=== PATIENT | female | born 1980 | race Caucasian/White ===

== ENCOUNTER 2016-05-13 15:28 | Emergency (ER) | payer OTHER ==
[~2016-05-13 15:28] MED LIST: DIPH25CA58 PO; METO25TA4 PO; ONDA8TAB9 PO; PROM25TA10 PO; SUMA20SP NS
[2016-05-13] MEDS ORDERED: methylPREDNISolone SOD SUCC PF 125 MG/2 ML VIAL. IV ONE (16:15)
[2016-05-13] MEDS ORDERED: IV NORMAL SALINE 1000ML BAG 1,000 ML IV ONE (16:15)
[2016-05-13] MEDS ORDERED: KETOROLAC TROMETHAMINE 30 MG/ML INJ. IV ONE (16:15)
[2016-05-13] MEDS ORDERED: PROCHLORPERAZINE 10 MG/2 ML VIAL. IV ONE (16:15)
[2016-05-13] MEDS ORDERED: DIPHENHYDRAMINE 50 MG/ML VIAL. IV ONE (16:15)
[2016-05-13 17:03] LABS: BILIRUBIN,URINE NEGATIVE (NEG); GLUCOSE,URINE NEGATIVE (NEG); NITRITE,URINE NEGATIVE (NEG); PROTEIN,URINE NEGATIVE (NEG-TRACE); UROBILINOGEN,URINE 0.2 mg/dL (0.2 mg/dL)
[2016-05-13 17:16] LABS: BACTERIA,URINE 0 /HPF (0-FEW); RBC,URINE 0 /HPF (0-2); SQUAMOUS EPITHELIAL CELL,UR FEW /LPF; WBC,URINE OCC /HPF (0-4)
[2016-05-13] MEDS: HYDROMORPHONE 2 MG/ML VIAL. IV/SQ PRN ×2 (17:37→18:03)
[2016-05-13 17:42] LABS: NEG OBC UR NEG; POS OBC UR POS
--- NOTE | 2016-05-13 18:07 | PHYS DOC ---
Past Medical History Past Medical History: Arthritis, Migraines, Other Additional Past Medical Histor: RA Past Surgical History: Cholecystectomy Alcohol Use: Rarely Drug Use: None Adult General Chief Complaint Chief Complaint: HEADACHE HPI HPI Patient is a 36 year old female who presents with migraine headache. The patient reports history of poorly controlled migraines. 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 She reports headache is generalized, aching/throbbing, similar to previous migraine. She reports photophobia/phonophobia, visual changes/aura, nausea She denies fevers , neck stiffness, vomiting, extremity numbness/weakness. She did not take home meds today because she was already at her workplace . Has seen numerous specialists but never achieved good control of her symptoms, reports most days of each month she suffers from a migraine. Review of Systems Review of Systems Constitutional: Denies fever or chills Eyes: Reports visual changes HENT: Denies nasal congestion or sore throat Respiratory: Denies cough or shortness of breath Cardiovascular: Denies chest pain or edema GI: Reports nausea. Denies abdominal pain, vomiting Musculoskeletal: Denies back pain or joint pain Integument: Denies rash or skin lesions Neurologic: Reports headache, denies focal weakness or sensory changes Current Medications Current Medications Current Medications Medications (Trade) Dose Ordered Sig/Faraz Start Time Stop Time Status Last Admin Dose Admin Diphenhydramine HCl (Benadryl) 25 mg 1X ONCE 05/13/16 16:15 05/13/16 16:16 DC 05/13/16 16:18 25 MG Hydromorphone HCl (Dilaudid) 1 mg PRN Q15MIN PRN 05/13/16 17:30 05/13/16 18:50 DC 05/13/16 18:03 1 MG Ketorolac Tromethamine (Toradol) 30 mg 1X ONCE 05/13/16 16:15 05/13/16 16:16 DC 05/13/16 16:19 30 MG Methylprednisolone Sodium Succinate (Solu-Medrol 125mg Vial) 125 mg 1X ONCE 05/13/16 16:15 05/13/16 16:16 DC 05/13/16 16:29 125 MG Prochlorperazine Edisylate (Compazine) 10 mg 1X ONCE 05/13/16 16:15 05/13/16 16:16 DC 05/13/16 16:18 10 MG Sodium Chloride (Iv Sodium Chloride 0.9% 1000ml Bag) 1,000 ml @ 1,000 mls/hr 1X ONCE 05/13/16 16:15 05/13/16 17:14 DC 05/13/16 16:18 1,000 MLS/HR Allergies Allergies Allergies Coded Allergies Type Severity Reaction Last Updated Verified benztropine Allergy Intermediate SEVERE PAIN 08/15/15 Yes dexamethasone Allergy Intermediate SEVERE PAIN 08/15/15 Yes Physical Exam Physical Exam Constitutional: Well developed, well nourished, lying supine in dark room with hands covering her face. HENT: Normocephalic, atraumatic, bilateral external ears normal, oropharynx moist, no tonsillar enlargement or exudate ,nose normal. Eyes: PERRLA, EOMI, conjunctiva normal, no discharge. Neck: supple, no stridor. no meningismus Cardiovascular: RRR, no murmurs, no edema. Lungs & Thorax: LCTAB, no wheezing, no respiratory distress. Abdomen: soft, nontender, nondistended. Skin: Warm, dry, no erythema, no rash. Back: No tenderness. Extremities: No tenderness, no edema. Neurologic: Alert and oriented X 3, CN2-12 grossly intact, symmetric strength/ sensation to UE & LE, no focal deficits noted. Psychologic: Affect normal, judgement normal, mood normal. Current Patient Data Vital Signs Vital Signs Date Time Temp Pulse Resp B/P Pulse Ox O2 Delivery O2 Flow Rate FiO2 05/13/16 18:19 76 16 153/75 95 Room Air 05/13/16 15:31 97.5 97.5 Lab Values Laboratory Tests Test 05/13/16 16:56 Urine Collection Type Unknown Urine Color Yellow Urine Clarity Clear Urine pH 8.0 Urine Specific [place] <=1.005 Urine Protein Negativemg/dL (NEG-TRACE) Urine Glucose (UA) Negativemg/dL (NEG) Urine Ketones (Stick) Negativemg/dL (NEG) Urine Blood Negative (NEG) Urine Nitrite Negative (NEG) Urine Bilirubin Negative (NEG) Urine Urobilinogen Dipstick 0.2mg/dL (0.2 mg/dL) Urine Leukocyte Esterase Negative (NEG) Urine RBC 0/HPF (0-2) Urine WBC Occ/HPF (0-4) Urine Squamous Epithelial Cells Few/LPF Urine Bacteria 0/HPF (0-FEW) Urine Test Negative (NEG) EKG EKG [] Radiology/Procedures Radiology/Procedures [] Course & Med Decision Making Course & Med Decision Making Pertinent Labs and Imaging studies reviewed. (See chart for details) Patient presents with usual migraine headache. Gave IV fluids, toradol, compazine, benadryl. She requested solumedrol as steroids have enhanced symptom relief in the past. No significant relief with initial treatment, also gave dilaudid. Her pain improved & she was comfortable with discharge home. Recommended rest, PO hydration, continue home meds, follow up with PCP or neurologist in 2-3 days if symptoms continue. Come back for focal neuro deficit , sudden onset or severe headache, mental status changes, any otherwise worsening condition. Discharged home in stable & improved condition. [] Dragon Disclaimer Dragon Disclaimer This electronic medical record was generated, in whole or in part, using a voice recognition dictation system. Departure Departure Impression: Primary Impression: Migraine Disposition: 01 HOME, SELF-CARE Condition: STABLE Referrals: MICKY YOST MD (PCP) Additional Instructions: You were seen in the emergency department today for migraine headache. Symptoms improved with treatment here. Please continue to rest, use home medications as prescribed. Follow-up with primary care physician or neurology within 2-3 days if not improving. Return to the emergency department for worst headache of your life, sudden onset of severe headache, severe confusion, difficulty walking or talking, trouble moving arms or legs, any otherwise worsening condition. ANETTE FRIEDMAN MD May 13, 2016 18:07
[2016-05-13 18:19] VITALS: BP 153/75
== END 2016-05-13 18:49 | disposition home or self-care (01) ==
LOC: ER 15:28
DX: G43.909 Migraine, unspecified, not intractable, without status migrainosus (principal); M06.9 Rheumatoid arthritis, unspecified; Z90.49 Acquired absence of other specified parts of digestive tract; Z88.8 Allergy status to other drugs, medicaments and biological substances
CPT/HCPCS: 81001; 81025; 96361; 96374; 96375; 99284; J0780; J1170; J1200; J1885; J2930; J7030

== ENCOUNTER 2016-10-07 10:26 | Emergency (ER) | payer OTHER ==
[~2016-10-07] VITALS: Ht 160 cm; Wt 81.6 kg
[2016-10-07] MEDS ORDERED: KETOROLAC TROMETHAMINE 30 MG/ML INJ. IV ONE (11:45)
[2016-10-07] MEDS ORDERED: diphenhydrAMINE 50 MG/ML VIAL IVP ONE (11:45)
[2016-10-07] MEDS ORDERED: PROCHLORPERAZINE 10 MG/2 ML VIAL. IV ONE (11:45)
[2016-10-07] MEDS ORDERED: ONDANSETRON PF 4 MG/2 ML VIAL. IV ONE (14:00)
[2016-10-07] MEDS ORDERED: fentaNYL PF VIAL 100 MCG/2 ML VIAL IV ONE (14:00)
[2016-10-07 14:24] VITALS: BP 141/68
--- NOTE | 2016-10-07 14:27 | PHYS DOC ---
Past Medical History Past Medical History: Arthritis, Migraines, Other Additional Past Medical Histor: RA Past Surgical History: Cholecystectomy Alcohol Use: Rarely Drug Use: None Adult General Chief Complaint Chief Complaint: HEADACHE HPI HPI Patient is a 36 year old female who presents with migraine headache. The patient reports headache since this morning which is frontal, throbbing, typical of usual migraine headache. Not sudden in onset, not the worst headache of her life. Associated with nausea, photophobia, phonophobia. Denies fevers/chills, neck stiffness, vomiting, extremity numbness/weakness. She used DHE without relief. Recently got an ear piercing that has provided some relief. She has a PCP. Review of Systems Review of Systems Constitutional: Denies fever or chills Eyes: Denies change in visual acuity HENT: Denies nasal congestion or sore throat Respiratory: Denies cough or shortness of breath Cardiovascular: Denies chest pain GI: Reports nausea. Denies abdominal pain, vomiting : Denies dysuria or hematuria Musculoskeletal: Denies back pain or joint pain Integument: Denies rash or skin lesions Neurologic: Reports headache, denies focal weakness or sensory changes Current Medications Current Medications Current Medications Medications (Trade) Dose Ordered Sig/Faraz Start Time Stop Time Status Last Admin Dose Admin Diphenhydramine HCl (Benadryl) 25 mg 1X ONCE 10/07/16 11:45 10/07/16 11:47 DC 10/07/16 12:25 25 MG Fentanyl Citrate (Fentanyl 2ml Vial) 50 mcg 1X ONCE 10/07/16 14:00 10/07/16 14:01 DC Ketorolac Tromethamine (Toradol) 30 mg 1X ONCE 10/07/16 11:45 10/07/16 11:47 DC 10/07/16 12:25 30 MG Ondansetron HCl (Zofran) 4 mg 1X ONCE 10/07/16 14:00 10/07/16 14:01 DC Prochlorperazine Edisylate (Compazine) 10 mg 1X ONCE 10/07/16 11:45 10/07/16 11:47 DC 10/07/16 12:25 10 MG Allergies Allergies Allergies Coded Allergies Type Severity Reaction Last Updated Verified benztropine Allergy Intermediate SEVERE PAIN 08/15/15 Yes dexamethasone Allergy Intermediate SEVERE PAIN 08/15/15 Yes Physical Exam Physical Exam Constitutional: Well developed, well nourished, no acute distress, non-toxic appearance. HENT: Normocephalic, atraumatic, bilateral external ears normal, oropharynx moist, nose normal. Eyes: PERRLA, EOMI, conjunctiva normal, no discharge. Neck: supple, no stridor. no meningismus. Cardiovascular: RRR, no murmurs, no edema. Lungs & Thorax: LCTAB, no wheezing, no respiratory distress. Abdomen: soft, nontender, nondistended. Skin: Warm, dry, no erythema, no rash. Back: No tenderness. Extremities: No tenderness, no edema. Neurologic: Alert and oriented X 3, CN2-12 grossly intact, symmetric strength/ sensation to upper & lower extremities. no focal deficits noted. Psychologic: Affect normal, judgement normal, mood normal. Current Patient Data Vital Signs Vital Signs Date Time Temp Pulse Resp B/P (MAP) Pulse Ox O2 Delivery O2 Flow Rate FiO2 10/07/16 14:24 88 18 141/68 (92) 94 Room Air 10/07/16 11:20 98.0 98.0 EKG EKG [] Radiology/Procedures Radiology/Procedures [] Course & Med Decision Making Course & Med Decision Making Pertinent Labs and Imaging studies reviewed. (See chart for details) The patient presents with usual migraine headache. Gave compazine, benadryl, toradol, fluids. Her symptoms improved. Ordered UA & UCG but she did not provide urine. She felt better & requested discharge home. Recommend rest, PO hydration, follow up with PCP in 2-3 days for ongoing migraine management. Come back for sudden onset severe headache, worst headache of her life, focal neuro deficit, any otherwise worsening condition. Discharged home in stable & improved condition. [] Dragon Disclaimer Dragon Disclaimer This electronic medical record was generated, in whole or in part, using a voice recognition dictation system. Departure Departure Impression: Primary Impression: Migraine headache Disposition: 01 HOME, SELF-CARE Condition: IMPROVED Referrals: MICKY YOST MD (PCP) Patient Instructions: Migraine Headache, [id number] Additional Instructions: You were seen in the emergency department today for migraine headache. Symptoms improved after treatment here. Please follow-up with primary care physician for ongoing management. Return to the emergency department for worst headache of your life, sudden onset severe headache, uncontrolled vomiting, difficulty moving arms or legs, any otherwise worsening condition. ANETTE FRIEDMAN MD Oct 07, 2016 14:27
== END 2016-10-07 15:00 | disposition home or self-care (01) ==
LOC: ER 10:26
DX: G43.909 Migraine, unspecified, not intractable, without status migrainosus (principal); M06.9 Rheumatoid arthritis, unspecified; Z88.8 Allergy status to other drugs, medicaments and biological substances; Z90.49 Acquired absence of other specified parts of digestive tract
CPT/HCPCS: 96374; 96375; 99284; J0780; J1200; J1885

== ENCOUNTER 2016-10-18 16:00 | Inpatient (IN) | payer OTHER ==
[~2016-10-18] VITALS: Ht 165.1 cm; Wt 85.3 kg
--- NOTE | 2016-10-18 17:24 | PHYS DOC ---
Past Medical History Past Medical History: Arthritis, Migraines, Other Additional Past Medical Histor: RA Past Surgical History: Cholecystectomy Alcohol Use: Rarely Drug Use: None Adult General Chief Complaint Chief Complaint: HEADACHE HPI HPI Patient is a 36 year old female who presents with migraine headache.She states it is a cluster headaches been going on for approximately 2 weeks total. She states occasionally over the last 2 weeks [id number] medicines controlled her headaches, other times she has to get a prescription strength medicine. She states is a throbbing sensation she feels nauseated with it, it's on the right side of her head behind her right eye in the right side of her jaw. She states she's tried DHE for yesterday and the day before in addition she tried Toradol yesterday.. She states that she's had a migraine history for years and occasional she needs Solu-Medrol and magnesium. She states she was just here a few weeks ago with similar situation. She states she' s tried Toradol at home eyes any fevers, neck stiffness. She does state sound and light makes her headache feel worse. Review of Systems Review of Systems Constitutional: Denies fever or chills [] Eyes: Denies change in visual acuity, redness, or eye pain [] HENT: Denies nasal congestion or sore throat [] Respiratory: Denies cough or shortness of breath [] Cardiovascular: No additional information not addressed in HPI [] GI: Denies abdominal pain, nausea, vomiting, bloody stools or diarrhea [] : Denies dysuria or hematuria [] Musculoskeletal: Denies back pain or joint pain [] Integument: Denies rash or skin lesions [] Neurologic: Positive for headache, Denies focal weakness or sensory changes [] Endocrine: Denies polyuria or polydipsia [] Current Medications Current Medications Current Medications Medications (Trade) Dose Ordered Sig/Faraz Start Time Stop Time Status Last Admin Dose Admin Diphenhydramine HCl (Benadryl) 25 mg 1X ONCE 10/18/16 20:00 10/18/16 20:01 DC 10/18/16 20:02 25 MG Hydromorphone HCl (Dilaudid) 1 mg PRN Q15MIN PRN 10/18/16 18:45 10/19/16 18:44 10/18/16 20:03 1 MG Ketorolac Tromethamine (Toradol) 30 mg 1X ONCE 10/18/16 18:45 10/18/16 18:47 DC 10/18/16 18:56 30 MG Lidocaine HCl (Xylocaine-Mpf 1% Vial) 5 ml 1X ONCE 10/18/16 19:45 10/18/16 19:46 DC 10/18/16 19:53 5 ML Magnesium Sulfate/ Dextrose 100 ml @ 100 mls/hr 1X ONCE 10/18/16 18:45 10/18/16 19:44 DC 10/18/16 18:57 100 MLS/HR Methylprednisolone Sodium Succinate (SOLU-Medrol 125MG VIAL) 125 mg 1X ONCE 10/18/16 17:30 10/18/16 17:31 DC 10/18/16 17:45 125 MG Promethazine HCl 12.5 mg/Sodium Chloride 50.5 ml @ 151.5 mls/ hr PRN Q6HRS PRN 10/18/16 17:30 10/18/16 17:50 151.5 MLS/HR Sodium Chloride 1,000 ml @ 1,000 mls/hr 1X ONCE 10/18/16 17:30 10/18/16 18:29 DC 10/18/16 17:49 1,000 MLS/HR Allergies Allergies Allergies Coded Allergies Type Severity Reaction Last Updated Verified benztropine Allergy Intermediate SEVERE PAIN 08/15/15 Yes dexamethasone Allergy Intermediate SEVERE PAIN 08/15/15 Yes Physical Exam Physical Exam Constitutional: Well developed, well nourished, no acute distress, non-toxic appearance. [] HENT: Normocephalic, atraumatic, bilateral external ears normal, oropharynx moist, no oral exudates, nose normal. [] Eyes: PERRLA, EOMI, conjunctiva normal, no discharge. [] Neck: Normal range of motion, no tenderness, supple, no stridor. [] Cardiovascular:Heart rate regular rhythm, no murmur [] Lungs & Thorax: Bilateral breath sounds clear to auscultation [] Abdomen: Bowel sounds normal, soft, no tenderness, no masses, no pulsatile masses. [] Skin: Warm, dry, no erythema, no rash. [] Back: No tenderness, no CVA tenderness. [] Extremities: No tenderness, no cyanosis, no clubbing, ROM intact, no edema. [] Neurologic: Alert and oriented X 3, normal motor function, normal sensory function, no focal deficits noted. [] Psychologic: Affect normal, judgement normal, mood normal. [] Current Patient Data Vital Signs Vital Signs Date Time Temp Pulse Resp B/P (MAP) Pulse Ox O2 Delivery O2 Flow Rate FiO2 10/18/16 20:03 18 99 Nasal Cannula 10/18/16 18:37 90 164/79 (107) 10/18/16 17:00 98.0 98.0 Lab Values Laboratory Tests Test 10/18/16 17:30 10/18/16 18:20 10/18/16 18:27 White Blood Count 6.7 x10^3/uL (4.0-11.0) Red Blood Count 4.51 x10^6/uL (3.50-5.40) Hemoglobin 13.3 g/dL (12.0-15.5) Hematocrit 38.8 % (36.0-47.0) Mean Corpuscular Volume 86 fL (79-100) Mean Corpuscular Hemoglobin 29 pg (25-35) Mean Corpuscular Hemoglobin Concent 34 g/dL (31-37) Red Cell Distribution Width 12.9 % (11.5-14.5) Platelet Count 243 x10^3/uL (140-400) Neutrophils (%) (Auto) 56 % (31-73) Lymphocytes (%) (Auto) 33 % (24-48) Monocytes (%) (Auto) 8 % (0-9) Eosinophils (%) (Auto) 3 % (0-3) Basophils (%) (Auto) 1 % (0-3) Neutrophils # (Auto) 3.7 x10^3uL (1.8-7.7) Lymphocytes # (Auto) 2.2 x10^3/uL (1.0-4.8) Monocytes # (Auto) 0.5 x10^3/uL (0.0-1.1) Eosinophils # (Auto) 0.2 x10^3/uL (0.0-0.7) Basophils # (Auto) 0.0 x10^3/uL (0.0-0.2) Urine Collection Type Unknown Urine Color Yellow Urine Clarity Clear Urine pH 7.5 Urine Specific [place] 1.010 Urine Protein Negative mg/dL (NEG-TRACE) Urine Glucose (UA) Negative mg/dL (NEG) Urine Ketones (Stick) 15 mg/dL (NEG) Urine Blood Negative (NEG) Urine Nitrite Negative (NEG) Urine Bilirubin Negative (NEG) Urine Urobilinogen Dipstick 0.2 mg/dL (0.2 mg/dL) Urine Leukocyte Esterase Small (NEG) Urine RBC 0 /HPF (0-2) Urine WBC 1-4 /HPF (0-4) Urine Squamous Epithelial Cells Mod /LPF Urine Bacteria Moderate /HPF (0-FEW) POC Urine HCG, Qualitative Hcg negative (Negative) Laboratory Tests 10/18/16 17:30 EKG EKG [] Radiology/Procedures Radiology/Procedures [] Impressions: Migraine headache Course & Med Decision Making Course & Med Decision Making Pertinent Labs and Imaging studies reviewed. (See chart for details) 1844 patient states the headache is no better with her treatment of Phenergan, Benadryl, Solu-Medrol. She states symptoms magnesium works. She did try Toradol but was earlier in the week. So we will start 1 g mag, 30 mg IV Toradol and 1 mg IV Dilaudid. We attempted 2% lidocaine and use a nebulizer and she states the pain went from a 10 down to an 8 but she still doesn't feel well enough to be discharged. We will admit and consult neurology. I also tried nonrebreather 15 L/m for 20 minutes to see if this would help. I spoke with Dr. Garcia wanted CT noncontrast of the brain performed now and MRI with and without contrast in the morning. These images have been ordered and are pending at this time. Patient's being admitted to the hospitalist who is going to follow-up on the CT scan. Dragon Disclaimer Dragon Disclaimer This electronic medical record was generated, in whole or in part, using a voice recognition dictation system. Departure Departure Impression: Primary Impression: Migraine Disposition: 09 ADMITTED INPATIENT Admitting Physician: Other Condition: STABLE Referrals: MICKY YOST MD (PCP) Problem Qualifiers Primary Impression: Migraine Migraine type: unspecified Status migrainosus presence: with status migrainosus Intractability: intractable Qualified Codes: G43.911 - Migraine , unspecified, intractable, with status migrainosus JESUS LOUIS MD Oct 18, 2016 17:24
[2016-10-18] MEDS ORDERED: PROMETHAZINE 12.5 MG in IV NORMAL SALINE 50ML 50 ML IV PRN (17:30)
[2016-10-18] MEDS ORDERED: methylPREDNISolone SOD SUCC PF 125 MG/2 ML VIAL. IV ONE (17:30)
[2016-10-18] MEDS ORDERED: diphenhydrAMINE 50 MG/ML VIAL IVP ONE ×2 (17:30→20:00)
[2016-10-18] MEDS ORDERED: IV NORMAL SALINE 1000ML BAG 1,000 ML IV ONE (17:30)
[2016-10-18 18:35] LABS: BILIRUBIN,URINE NEGATIVE (NEG); GLUCOSE,URINE NEGATIVE (NEG); NITRITE,URINE NEGATIVE (NEG); PH,URINE 7.5; PROTEIN,URINE NEGATIVE (NEG-TRACE); UROBILINOGEN,URINE 0.2 mg/dL (0.2 mg/dL)
[2016-10-18 18:39] LABS: BACTERIA,URINE MODERATE /HPF (0-FEW); RBC,URINE 0 /HPF (0-2); SQUAMOUS EPITHELIAL CELL,UR MOD /LPF
[2016-10-18] MEDS ORDERED: MAGNESIUM SULFATE 1GM 100 ML IV ONE (18:45)
[2016-10-18] MEDS ORDERED: KETOROLAC 30 MG/ML INJ. IV ONE (18:45)
[2016-10-18] MEDS: HYDROmorphone 2 MG/ML VIAL IV/SQ PRN ×2 (18:56→20:03)
[2016-10-18] MEDS ORDERED: LIDOCAINE 1% PF 5 ML VIAL. NEB ONE (19:45)
[2016-10-18] MEDS ORDERED: ONDANSETRON PF 4 MG/2 ML VIAL. IV PRN (21:00)
[2016-10-18 21:12] LABS: BASO % 1 % (0-3); EOS % 3 % (0-3); HEMATOCRIT 38.8 % (36.0-47.0); HEMOGLOBIN 13.3 g/dL (12.0-15.5); LYMPH # 2.2 x10^3/uL (1.0-4.8); LYMPH % 33 % (24-48); MEAN CORPUSCULAR HEMOGLOBIN 29 pg (25-35); MEAN CORPUSCULAR HGB CONC 34 g/dL (31-37); MEAN CORPUSCULAR VOLUME 86 fL (79-100); MONO % 8 % (0-9); NEUT % 56 % (31-73); PLATELET COUNT 243 x10^3/uL (140-400); RED BLOOD COUNT 4.51 x10^6/uL (3.50-5.40); RED CELL DISTRIBUTION WIDTH 12.9 % (11.5-14.5); WHITE BLOOD COUNT 6.7 x10^3/uL (4.0-11.0)
[2016-10-18] MEDS ORDERED: IV DEXTROSE 5 %-0.45 % NACL 1,000 ML IV ONE (21:15)
[2016-10-18 21:25] VITALS: BP 136/82
[2016-10-18 21:26] LABS: CALCIUM 9.2 mg/dL (8.5-10.1); CREATININE 0.7 mg/dL (0.6-1.0); GFR 94.2; POTASSIUM 3.3 mmol/L (3.5-5.1)
--- NOTE | 2016-10-18 21:35 | RAD ---
CT scan of the head without contrast 10/18/2016 Clinical History: Severe intractable headaches. Technique: Unenhanced, contiguous, 5 mm axial sections were obtained through the head. One or more of the following individualized dose reduction techniques were utilized for this study: 1. Automated exposure control. 2. Adjustment of the mA and/or kV according to patient size. 3. Use of iterative reconstruction technique. Findings: The ventricles and sulci are within normal limits in size and configuration. No focal area of abnormal attenuation is seen involving the brain parenchyma. No extra-axial fluid collection is seen. No skull fracture is seen. Impression: Negative study. Electronically signed by: Bradly Clancy MD (10/18/2016 9:32 PM) [facility]
[2016-10-18] MEDS ORDERED: NORE-83 PO (23:37)
[2016-10-18] MEDS ORDERED: NIFE30TA17 PO (23:37)
[2016-10-18] MEDS ORDERED: DRON5CAP PO (23:37)
[2016-10-18] MEDS ORDERED: CLON1TAB3 PO (23:37)
[2016-10-18] MEDS ORDERED: TIZA4TAB PO (23:37)
[2016-10-18] MEDS ORDERED: QUET300T5 PO (23:37)
[2016-10-18] MEDS ORDERED: HYDR-2758 PO (23:37)
[2016-10-18] MEDS ORDERED: DIHY1SPR NS (23:44)
[2016-10-19] MEDS ORDERED: diphenhydrAMINE HCL 25 MG CAPSULE PO PRN (00:30)
[2016-10-19] MEDS ORDERED: ONDANSETRON ODT 4 MG TAB.RAPDIS. PO PRN (00:30)
[2016-10-19] MEDS ORDERED: DIHYDROERGOTAMINE MESYLATE NS PRN (00:30)
[2016-10-19] MEDS ORDERED: HYDROmorphone 2 MG/ML VIAL IV ONE (00:45)
[2016-10-19] MEDS: tiZANidine 4 MG TABLET. PO PRN (00:53)
--- NOTE | 2016-10-19 01:07 | HP ---
ADMIT DATE: 10/18/2016 CHIEF COMPLAINT: Intractable headache. HISTORY OF PRESENT ILLNESS: The patient is a 36-year-old woman with long-standing history of severe migraines. Her most recent bout started about 2 weeks ago. She actually presented to the Emergency Room, got admitted there and felt a litter better. However, the migraine was not completely broken and she limped along. This morning, she woke up and had extreme severe headache with pounding even before getting up, and therefore, decided to come to the Emergency Room. In the ER, she received consecutively a multiple medications which minimally affected her headache. She is now admitted for intractable headache. PAST MEDICAL HISTORY: Migraine headaches. FAMILY HISTORY: Both parents have history of migraines with aura. 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 No toxic habits. ALLERGIES: BENZTROPINE AND DEXAMETHASONE. MEDICATIONS: MAR reconciled with home medications. REVIEW OF SYSTEMS: Positive as per HPI. Denies any ongoing aura, is sensitive to sound and light. Rest of organ system review shows some nausea and dizziness, but no other symptoms in rest of organ system review. PHYSICAL EXAMINATION: VITAL SIGNS: From today show a blood pressure of 136/82, heart rate of 95 and respiratory rate at 18. She is afebrile. GENERAL: This is a well-nourished 36-year-old woman, alert and oriented, in moderate distress due to headache. HEENT: Shows no scleral icterus. NECK: Supple. LUNGS: Fairly clear bilaterally. HEART: Regular rate and rhythm. ABDOMEN: Positive bowel sounds. Soft, nontender. EXTREMITIES: Show no edema. SKIN: Warm, soft and dry. LABORATORY DATA: CBC with a WBC of 6.7, hemoglobin 13.3 and platelets of 243,000. Chemistries with a BUN and creatinine of 13 and 0.7 and potassium of 3.3. IMAGING: CT noncontrast of the head shows ventricles and sulci within normal limits in size and configuration. No focal area of abnormal attenuation is seen involving the brain parenchyma. ASSESSMENT AND PLAN: The patient is a 36-year-old woman with long-standing history of migraine headaches. She has not picked a neurologist to follow up with here since moving to the [facility]. This is her second migraine this year. I will get her admitted. Dr. Garcia from Neurology has been consulted. An MRA of the brain is pending. In the meantime, we will try and break her cycle with Dilaudid as this seemed to be the only medication that at least temporarily helped a little bit. I will try and keep her comfortable. IV fluids will be continued for the time being. I will change to half normal saline with potassium as her potassium in the ER was noted to be slightly low. We will follow up with labs in the morning. We will also continue all her home medications, which are extensive. SHARON ALEJANDRO MD DR: NINOSKA/nts JOB#: [id number] / [id number] KEILY
[2016-10-19] MEDS: POTASSIUM CHLORIDE 30 MEQ in IV 1/2 NORMAL SALINE 1,000 ML IV SCH ×2 (01:14→17:44)
--- NOTE | 2016-10-19 01:45 | ACF ---
Admission Forms Criteria HEADACHES Clinical Indications for Admission to Inpatient Care (Hydes/check or initial the applicable condition/criteria): Admission is indicated for 1 or more of the following(1)(2)(3)(4)(5): I. Unruptured but threatening aneurysm or vascular malformation II. Venous sinus thrombosis III. Increased intracranial pressure IV. Cerebral spinal fluid leak V Medication-overuse headachethat has failed all outpatient management options(6 )(7)(8) . Vasculitis (eg, giant cell (temporal) arteritis, central nervous system vasculitis) requiring intravenous corticosteroids, intravenous antithrombotic therapy, or inpatient monitoring (e.g., visual symptomsor findings, other ischemic manifestations)[A](9) VII. Severe (new) neurologic findings requiring inpatient care as indicated by 1 or more of the following(10)(11)(12) a) Papilledema b) Cerebral edema c) mass effect on CT scan d) Cerebral spinal fluid leak (13) e) Hydrocephalus(14)(15) f) Uncontrolled seizures(9)(16) [X] VIII Inpatient admission required rather than observational care (See Headaches: Observation Care as appropriate) because of 1 or more of the following(17): [X] a) Severe pain requiring acute inpatient management b) Altered mental status that is severe or persistent c) Vomiting that is severe or persistent d) Dehydration that is severe or persistent e) New-onset focal neurologic deficit that is severe or persistent (eg, does not resolve during observation care) (18) f) Hypertension requiring inpatient treatment g) IV fluid required rather than oral rehydration to replace significant ongoing (eg, for greater than 24 hours) losses (greater than 200 ml/hr or 3L/m2 per day) h) Cerebral bleeding, hydrocephalus, or vasospasm monitoring (19) i) Increased intracranial pressure or cerebral edema monitoring j) Other condition treatment or monitoring requiring inpatient admission Extended stay beyond goal length of stay may be needed for (36)(37): a) Intractable migraine b) Giant cell (temporal) arteritis with visual or other ischemic signs or symptoms(1) c) Subarachnoid or intracranial hemorrhage d) Malignant hypertension e) Detoxification from drug withdrawal in medication-overuse headache (6)(8) The original [facility] content created by Berta Hurt has been revised. The portions of the content which have been revised are identified through the use of italic text or in bold, and [facility] has neither reviewed nor approved the modified material.All other unmodified content is copyright [facility]. Please see references footnoted in the original [facility] edition 2016 Admission Criteria Met?: Yes RAHUL WRAY Oct 19, 2016 01:45
[2016-10-19] MEDS: clonazePAM 1 MG TABLET PO PRN ×2 (02:25→09:18)
[2016-10-19] MEDS: HYDROcodone/APAP 5/325MG 1 TAB TABLET PO PRN ×2 (02:25→17:12)
[2016-10-19 03:00] VITALS: BP 140/79
[2016-10-19 07:00] VITALS: BP 100/53
[2016-10-19] MEDS ORDERED: NORETHINDRONE A E ESTRADIOL PO SCH (09:00)
[2016-10-19] MEDS ORDERED: DRONABINOL 2.5 MG CAPSULE. PO PRN (11:30)
--- NOTE | 2016-10-19 11:41 | RAD ---
Indication: Chronic migraine headaches. Technique: Study is dated October 19, 2016. 3-D time of flight MRA of the [place] was performed without contrast. Source and MIP reconstructed images were reviewed. Comparison CT head is from 1 day earlier. Findings: The visualized internal carotid arteries are normal in caliber without focal stenosis. The bilateral anterior and middle cerebral arteries are normal in caliber without focal stenosis or aneurysm. The vertebral, basilar, and posterior cerebral arteries are normal in caliber without focal stenosis or aneurysm. Impression: Normal intracranial MRA. Electronically signed by: Rehan Clements MD (10/19/2016 11:38 AM) [id number]
--- NOTE | 2016-10-19 12:47 | PDOC ---
PROGRESS NOTES Chief Complaint Chief Complaint Intractable headache PMH: migraine headaches History of Present Illness History of Present Illness Pt just returned from MRI, laying in bed with sleeping mask. States she hasn't slept all night. Angiography MRI of brain: IMPRESSION: Normal intracranial MRA. Head CT: IMPRESSION: Negative study. Vitals Vitals Vital Signs Date Time Temp Pulse Resp B/P (MAP) Pulse Ox O2 Delivery O2 Flow Rate FiO2 10/19/16 07:40 Room Air 10/19/16 07:00 98.4 74 18 100/53 (69) 90 98.4 10/18/16 21:00 15.0 Physical Exam General: Alert, Cooperative, No acute distress Heart: Regular rate, No murmurs Lungs: Clear, Other (no crackles, no wheezes) Abdomen: Soft, No tenderness Extremities: No clubbing, No cyanosis Skin: No rashes, No breakdown Labs LABS Laboratory Tests Test 10/18/16 17:30 10/18/16 18:20 10/18/16 18:27 White Blood Count 6.7 x10^3/uL (4.0-11.0) Red Blood Count 4.51 x10^6/uL (3.50-5.40) Hemoglobin 13.3 g/dL (12.0-15.5) Hematocrit 38.8 % (36.0-47.0) Mean Corpuscular Volume 86 fL (79-100) Mean Corpuscular Hemoglobin 29 pg (25-35) Mean Corpuscular Hemoglobin Concent 34 g/dL (31-37) Red Cell Distribution Width 12.9 % (11.5-14.5) Platelet Count 243 x10^3/uL (140-400) Neutrophils (%) (Auto) 56 % (31-73) Lymphocytes (%) (Auto) 33 % (24-48) Monocytes (%) (Auto) 8 % (0-9) Eosinophils (%) (Auto) 3 % (0-3) Basophils (%) (Auto) 1 % (0-3) Neutrophils # (Auto) 3.7 x10^3uL (1.8-7.7) Lymphocytes # (Auto) 2.2 x10^3/uL (1.0-4.8) Monocytes # (Auto) 0.5 x10^3/uL (0.0-1.1) Eosinophils # (Auto) 0.2 x10^3/uL (0.0-0.7) Basophils # (Auto) 0.0 x10^3/uL (0.0-0.2) Erythrocyte Sedimentation Rate 13 (0-25) Sodium Level 138 mmol/L (136-145) Potassium Level 3.3 mmol/L (3.5-5.1) Chloride Level 100 mmol/L (98-107) Carbon Dioxide Level 26 mmol/L (21-32) Anion Gap 12 (6-14) Blood Urea Nitrogen 13 mg/dL (7-20) Creatinine 0.7 mg/dL (0.6-1.0) Estimated GFR (Cockcroft-Gault) 94.2 Glucose Level 89 mg/dL (70-99) Calcium Level 9.2 mg/dL (8.5-10.1) Urine Collection Type Unknown Urine Color Yellow Urine Clarity Clear Urine pH 7.5 Urine Specific [place] 1.010 Urine Protein Negative mg/dL (NEG-TRACE) Urine Glucose (UA) Negative mg/dL (NEG) Urine Ketones (Stick) 15 mg/dL (NEG) Urine Blood Negative (NEG) Urine Nitrite Negative (NEG) Urine Bilirubin Negative (NEG) Urine Urobilinogen Dipstick 0.2 mg/dL (0.2 mg/dL) Urine Leukocyte Esterase Small (NEG) Urine RBC 0 /HPF (0-2) Urine WBC 1-4 /HPF (0-4) Urine Squamous Epithelial Cells Mod /LPF Urine Bacteria Moderate /HPF (0-FEW) Bedside Urine HCG, Qualitative Hcg negative (Negative) Review of Systems Review of Systems c/o fatigue headache Assessment and Plan Assessmemt and Plan Problems Medical Problems: (1) Migraine Status: Acute Migraine 1. Consulted Neurology 2. CT of head and MRA of brain both negative 3. Continue pain medicine; Percocet 5 mg PO q 8 hr prn #5 written, in chart 4. Probable DC today, if ok with neuro 5. F/up with PCP 1 week Problems: Comment Review of Relevant I have reviewed the following items sadaf (where applicable) has been applied. Labs Laboratory Tests Test 10/18/16 17:30 10/18/16 18:20 10/18/16 18:27 White Blood Count 6.7 x10^3/uL (4.0-11.0) Red Blood Count 4.51 x10^6/uL (3.50-5.40) Hemoglobin 13.3 g/dL (12.0-15.5) Hematocrit 38.8 % (36.0-47.0) Mean Corpuscular Volume 86 fL (79-100) Mean Corpuscular Hemoglobin 29 pg (25-35) Mean Corpuscular Hemoglobin Concent 34 g/dL (31-37) Red Cell Distribution Width 12.9 % (11.5-14.5) Platelet Count 243 x10^3/uL (140-400) Neutrophils (%) (Auto) 56 % (31-73) Lymphocytes (%) (Auto) 33 % (24-48) Monocytes (%) (Auto) 8 % (0-9) Eosinophils (%) (Auto) 3 % (0-3) Basophils (%) (Auto) 1 % (0-3) Neutrophils # (Auto) 3.7 x10^3uL (1.8-7.7) Lymphocytes # (Auto) 2.2 x10^3/uL (1.0-4.8) Monocytes # (Auto) 0.5 x10^3/uL (0.0-1.1) Eosinophils # (Auto) 0.2 x10^3/uL (0.0-0.7) Basophils # (Auto) 0.0 x10^3/uL (0.0-0.2) Erythrocyte Sedimentation Rate 13 (0-25) Sodium Level 138 mmol/L (136-145) Potassium Level 3.3 mmol/L (3.5-5.1) Chloride Level 100 mmol/L (98-107) Carbon Dioxide Level 26 mmol/L (21-32) Anion Gap 12 (6-14) Blood Urea Nitrogen 13 mg/dL (7-20) Creatinine 0.7 mg/dL (0.6-1.0) Estimated GFR (Cockcroft-Gault) 94.2 Glucose Level 89 mg/dL (70-99) Calcium Level 9.2 mg/dL (8.5-10.1) Urine Collection Type Unknown Urine Color Yellow Urine Clarity Clear Urine pH 7.5 Urine Specific [place] 1.010 Urine Protein Negative mg/dL (NEG-TRACE) Urine Glucose (UA) Negative mg/dL (NEG) Urine Ketones (Stick) 15 mg/dL (NEG) Urine Blood Negative (NEG) Urine Nitrite Negative (NEG) Urine Bilirubin Negative (NEG) Urine Urobilinogen Dipstick 0.2 mg/dL (0.2 mg/dL) Urine Leukocyte Esterase Small (NEG) Urine RBC 0 /HPF (0-2) Urine WBC 1-4 /HPF (0-4) Urine Squamous Epithelial Cells Mod /LPF Urine Bacteria Moderate /HPF (0-FEW) Bedside Urine HCG, Qualitative Hcg negative (Negative) Laboratory Tests Test 10/18/16 17:30 10/18/16 18:20 10/18/16 18:27 White Blood Count 6.7 x10^3/uL (4.0-11.0) Red Blood Count 4.51 x10^6/uL (3.50-5.40) Hemoglobin 13.3 g/dL (12.0-15.5) Hematocrit 38.8 % (36.0-47.0) Mean Corpuscular Volume 86 fL (79-100) Mean Corpuscular Hemoglobin 29 pg (25-35) Mean Corpuscular Hemoglobin Concent 34 g/dL (31-37) Red Cell Distribution Width 12.9 % (11.5-14.5) Platelet Count 243 x10^3/uL (140-400) Neutrophils (%) (Auto) 56 % (31-73) Lymphocytes (%) (Auto) 33 % (24-48) Monocytes (%) (Auto) 8 % (0-9) Eosinophils (%) (Auto) 3 % (0-3) Basophils (%) (Auto) 1 % (0-3) Neutrophils # (Auto) 3.7 x10^3uL (1.8-7.7) Lymphocytes # (Auto) 2.2 x10^3/uL (1.0-4.8) Monocytes # (Auto) 0.5 x10^3/uL (0.0-1.1) Eosinophils # (Auto) 0.2 x10^3/uL (0.0-0.7) Basophils # (Auto) 0.0 x10^3/uL (0.0-0.2) Erythrocyte Sedimentation Rate 13 (0-25) Sodium Level 138 mmol/L (136-145) Potassium Level 3.3 mmol/L (3.5-5.1) Chloride Level 100 mmol/L (98-107) Carbon Dioxide Level 26 mmol/L (21-32) Anion Gap 12 (6-14) Blood Urea Nitrogen 13 mg/dL (7-20) Creatinine 0.7 mg/dL (0.6-1.0) Estimated GFR (Cockcroft-Gault) 94.2 Glucose Level 89 mg/dL (70-99) Calcium Level 9.2 mg/dL (8.5-10.1) Urine Collection Type Unknown Urine Color Yellow Urine Clarity Clear Urine pH 7.5 Urine Specific [place] 1.010 Urine Protein Negative mg/dL (NEG-TRACE) Urine Glucose (UA) Negative mg/dL (NEG) Urine Ketones (Stick) 15 mg/dL (NEG) Urine Blood Negative (NEG) Urine Nitrite Negative (NEG) Urine Bilirubin Negative (NEG) Urine Urobilinogen Dipstick 0.2 mg/dL (0.2 mg/dL) Urine Leukocyte Esterase Small (NEG) Urine RBC 0 /HPF (0-2) Urine WBC 1-4 /HPF (0-4) Urine Squamous Epithelial Cells Mod /LPF Urine Bacteria Moderate /HPF (0-FEW) Bedside Urine HCG, Qualitative Hcg negative (Negative) Medications Current Medications Diphenhydramine HCl (Benadryl) 50 mg 1X ONCE IVP Last administered on 17:45; Start 10/18/16 at 17:30; Stop 10/18/16 at 17:31; Status DC Promethazine HCl 12.5 mg/Sodium Chloride 50.5 ml @ 151.5 mls/ hr PRN Q6HRS PRN IV NAUSEA/VOMITING Last administered on 10/18/16 17:50; Start 10/18/16 at 17:30 Methylprednisolone Sodium Succinate (SOLU-Medrol 125MG VIAL) 125 mg 1X ONCE IV Last administered on 10/18/16 17:45; Start 10/18/16 at 17:30; Stop 10/18/16 at 17:31; Status DC Sodium Chloride 1,000 ml @ 1,000 mls/hr 1X ONCE IV Last administered on 17:49; Start 10/18/16 at 17:30; Stop 10/18/16 at 18:29; Status DC Hydromorphone HCl (Dilaudid) 1 mg PRN Q15MIN PRN IV/SQ PAIN GREATER THAN 3/10 Last administered on 10/18/16 20:03; Start 10/18/16 at 18:45; Stop 10/19/16 at 00:23; Status DC Magnesium Sulfate/ Dextrose 100 ml @ 100 mls/hr 1X ONCE IV Last administered on 10/18/16 18:57; Start 10/18/16 at 18:45; Stop 10/18/16 at 19:44; Status DC Ketorolac Tromethamine (Toradol) 30 mg 1X ONCE IV Last administered on 18:56; Start 10/18/16 at 18:45; Stop 10/18/16 at 18:47; Status DC Lidocaine HCl (Xylocaine-Mpf 1% Vial) 5 ml 1X ONCE NEB Last administered on 19:53; Start 10/18/16 at 19:45; Stop 10/18/16 at 19:46; Status DC Diphenhydramine HCl (Benadryl) 25 mg 1X ONCE IVP Last administered on 20:02; Start 10/18/16 at 20:00; Stop 10/18/16 at 20:01; Status DC Ondansetron HCl (Zofran) 4 mg PRN Q8HRS PRN IV NAUSEA/VOMITING Last administered on 10/18/16 21:11; Start 10/18/16 at 21:00; Stop 10/19/16 at 20:59 Dextrose/Sodium Chloride 1,000 ml @ 125 mls/hr 1X ONCE IV Last administered on 10/18/16 21:15; Start 10/18/16 at 21:15; Stop 10/19/16 at 05:14; Status DC Hydromorphone HCl (Dilaudid) 3 mg 1X ONCE IV Last administered on 10/19/16 00 :49; Start 10/19/16 at 00:45; Stop 10/19/16 at 00:46; Status DC Clonazepam (KlonoPIN) 1 mg PRN TID PRN PO ANXIETY Last administered on 09:18; Start 10/19/16 at 00:30 Diphenhydramine HCl (Benadryl) 50 mg PRN Q6HRS PRN PO HEADACHE Last administered on 10/19/16 01:13; Start 10/19/16 at 00:30 Acetaminophen/ Hydrocodone Bitart (Lortab 5/325) 1 tab PRN Q4HRS PRN PO MODERATE PAIN Last administered on 10/19/16 02:25; Start 10/19/16 at 00:30 Nifedipine (Procardia Xl) 30 mg HS PO ; Start 10/19/16 at 21:00 Tizanidine HCl (Zanaflex) 4 mg PRN QID PRN PO MUSCLE SPASMS Last administered on 10/19/16 00:53; Start 10/19/16 at 00:30 Non-Formulary Medication 1 ml PRN BID PRN NS MIGRAINE HEADACHE; Start 10/19/16 at 00:30; Status UNV Dronabinol (Marinol) 5 mg PRN TID PRN PO NAUSEA Last administered on 10/19/16 09:18; Start 10/19/16 at 11:30 Non-Formulary Medication 1 tab DAILY PO ; Start 10/19/16 at 09:00; Status UNV Ondansetron HCl (Zofran Odt) 8 mg PRN Q8HRS PRN PO NAUSEA/VOMITING; Start 10/19 at 00:30 Quetiapine Fumarate (SEROquel XR) 300 mg QHS PO ; Start 10/19/16 at 21:00 Potassium Chloride 30 meq/ Sodium Chloride 1,015 ml @ 75 mls/hr [id number] IV Last administered on 10/19/16 01:14; Start 10/19/16 at 01:00 Active Scripts Active Reported Dihydroergotamine Mesylate 1 Ml [place].pump 1 Ml NS PRN BID PRN Hydrocodone-Apap 5-325 (Hydrocodone Bit/Acetaminophen) 1 Each Tablet 1 Tab PO PRN Q4HRS PRN Loestrin (Norethindrone A-E Estradiol) 1 Each Tablet 1 Tab PO DAILY Clonazepam 1 Mg Tablet 1 Mg PO PRN TID PRN Tizanidine Hcl 4 Mg Tablet 4 Mg PO QID PRN Seroquel (Quetiapine Fumarate) 300 Mg Tablet 300 Mg PO HS Marinol (Dronabinol) 5 Mg Capsule 5 Mg PO PRN TID PRN Nifedipine Er (Nifedipine) 30 Mg Tab.er.24 1 Tab PO HS Benadryl (Diphenhydramine Hcl) 25 Mg Capsule 2 Cap PO PRN Q6-8HRS PRN Zofran (Ondansetron Hcl) 8 Mg Tablet 8 Mg PO BID PRN Vitals/I & O Vital Sign - Last 24 Hours 10/18/16 10/18/16 10/18/16 10/18/16 17:00 17:37 18:07 18:37 Temp 98.0 98.0 Pulse 98 86 92 90 Resp 20 18 18 18 B/P (MAP) 195/105 (135) 149/74 (99) 158/88 (111) 164/79 (107) Pulse Ox 98 97 92 90 O2 Delivery Room Air Room Air Room Air Room Air 10/18/16 10/18/16 10/18/16 10/18/16 18:56 19:30 20:00 20:03 Pulse 100 100 Resp 20 18 18 18 B/P (MAP) 153/82 (105) 132/75 (94) Pulse Ox 98 99 99 O2 Delivery Room Air Nasal Cannula Nasal Cannula Nasal Cannula O2 Flow Rate 2.0 2.0 10/18/16 10/18/16 10/18/16 10/18/16 21:00 21:25 22:45 23:00 Temp 98.6 98.6 Pulse 91 95 Resp 18 18 B/P (MAP) 135/77 (96) 136/82 (100) Pulse Ox 99 92 O2 Delivery NonRebreather Mask Room Air Room Air O2 Flow Rate 15.0 10/19/16 10/19/16 10/19/16 10/19/16 00:49 01:29 02:25 03:00 Temp 97.7 97.7 Pulse 87 Resp 18 18 18 16 B/P (MAP) 140/79 (99) Pulse Ox 92 92 94 O2 Delivery Room Air Room Air 10/19/16 10/19/16 10/19/16 03:28 07:00 07:40 Temp 98.4 98.4 Pulse 74 Resp 18 18 B/P (MAP) 100/53 (69) Pulse Ox 94 90 O2 Delivery Room Air Room Air Room Air Intake and Output 10/19/16 10/19/16 10/20/16 15:00 23:00 07:00 Intake Total 540 ml Output Total 300 ml Balance 240 ml DAVIE FREY III DO Oct 19, 2016 12:47
[2016-10-19] MEDS ORDERED: GADOBUTROL 7.5 MMOL/7.5 ML VIAL IV ONE (14:00)
[2016-10-19 15:00] VITALS: BP 122/47
--- NOTE | 2016-10-19 15:02 | RAD ---
INDICATION: Headaches. Concern for pseudotumor cerebri or Chiari malformation. TECHNIQUE: Sagittal T1, axial T1, axial T2, axial FLAIR, axial T2 gradient, coronal postcontrast, axial postcontrast, and diffusion imaging with ADC map was performed. 7.5 mL of intravenous Gadavist was administered without complication. Comparison MR angiogram from earlier today was reviewed. There is also a CT from one day earlier. FINDINGS: The ventricles are normal in size and configuration. The ventricles do not appear prominent in relation to the sulci. There is no acute intracranial hemorrhage or extra-axial fluid collection. There is no mass effect or midline shift. There is no restricted diffusion to suggest an acute infarct. Sagittal midline structures are unremarkable. There is no cerebellar tonsillar ectopia. Pituitary and suprasellar region are unremarkable. Intracranial flow voids are preserved. There is minimal ethmoid and maxillary mucosal thickening. Orbital contents are unremarkable. There is no fluid in the optic sheaths. There is no pathologic enhancement. IMPRESSION: No acute intracranial findings. Electronically signed by: Rehan Clements MD (10/19/2016 2:58 PM) [id number]
--- NOTE | 2016-10-19 15:44 | PDOC2 ---
NEUROLOGY CONSULT Date of Admission Date of Admission DATE: 10/19/16 TIME: 15:38 Reason for Consult Reason for Consult: Intractable migraine headache. Chronic migraine headache. Pseudotumor cerebri ?. HTN OA Over weight. No evidence of Chiari malformation on MRI. RECOMMENDATIONS/PLAN: Pain control. Metoprolol 25 mg daily. Lab: see orders. LP to measure CSF opening pressure. Discussed with patient in all detail at bedside. HISTORY OF THE PRESENT ILLNESS: 36-y-old female patient with long standing history of chronic migraine headache since teenage age. She used to have frequent headaches about 15 days or more each month. Her headaches are at frontal head, around orbital area spreading to top, side and back of head as sharp pain. She rated her headaches 8-10/10. She was treated with multiple medications including Triptan, Topamax, Neurontin, Botox, DHE, etc, but stated not help. She has HTN and has been on a new calcium channel bc recently but seemed increased her headaches. No symptoms of mental status changes, projectile vomiting, blurred vision, diplopia, ataxia, aphasia, numbness or weakness. PAST MEDICAL HISTORY: Please see above. PAST SURGERY HISTORY: No major surgery recently. ALLERGY: Benztropine Dexamethason MEDICATIONS: Refer to [facility] FAMILY HISTORY: Mother has migraine headache. Father has aura w/o headache. SOCIAL HISTORY: Lives with her at home. Denies smoking, drinking, and illicit drug use. REVIEW OF SYSTEMS: Constitutional: No malnutrition, weight loss, cachexia. Head: No traumatic brain or head injury. Skin: No edema, or rash. Ear: No infection, tinnitus. Eyes: No vision loss or color blindness. Nose: No bleeding or purulent discharges. Hearing: No hearing decrease. Neck: No injury. Breast: No history of cancer, masses,or discharges. Cardiac:HTN. Pulmonary: No OPD. GI: No GI ulcer, GI bleeding. Urinary/genital: UTI. Endocrinologic: Over weight. Skeletomuscular: No muscular atrophy, deformity. Neurological: see HP. Psychiatric: Denies drug use/abuse. Otherwise, not [id number] review of systems. PHYSICAL EXAMINATION: General appearance is in acute distress. HEENT: Normocephalic and nontraumatic. Eyes, nose, ears, and throat are unremarkable. Neck is supple. No lymphadenopathy. No crepitus. Cardiovascular: S1, S2, regular rate and rhythm. Pulmonary: Clear to auscultation bilaterally. Abdomen: Bowel sounds are positive. Extremities: No rash, lesions, or edema. No restriction of range of motion NEUROLOGICAL EXAMINATION: Alert Oriented to time, place and person. Pupils equal round. Not be able to tolerate light stimuli. EOMI. CN: no focal findings. Muscle tone: within normal. Muscle strength: 5 DTR: 2 Plantar reflex: Flexor response bilaterally Gait: not examined in bed. Sensory exam: no abnormal findings. Current Medications Current Medications Current Medications Diphenhydramine HCl (Benadryl) 50 mg 1X ONCE IVP Last administered on 17:45; Start 10/18/16 at 17:30; Stop 10/18/16 at 17:31; Status DC Promethazine HCl 12.5 mg/Sodium Chloride 50.5 ml @ 151.5 mls/ hr PRN Q6HRS PRN IV NAUSEA/VOMITING Last administered on 10/18/16 17:50; Start 10/18/16 at 17:30 Methylprednisolone Sodium Succinate (SOLU-Medrol 125MG VIAL) 125 mg 1X ONCE IV Last administered on 10/18/16 17:45; Start 10/18/16 at 17:30; Stop 10/18/16 at 17:31; Status DC Sodium Chloride 1,000 ml @ 1,000 mls/hr 1X ONCE IV Last administered on 17:49; Start 10/18/16 at 17:30; Stop 10/18/16 at 18:29; Status DC Hydromorphone HCl (Dilaudid) 1 mg PRN Q15MIN PRN IV/SQ PAIN GREATER THAN 3/10 Last administered on 10/18/16 20:03; Start 10/18/16 at 18:45; Stop 10/19/16 at 00:23; Status DC Magnesium Sulfate/ Dextrose 100 ml @ 100 mls/hr 1X ONCE IV Last administered on 10/18/16 18:57; Start 10/18/16 at 18:45; Stop 10/18/16 at 19:44; Status DC Ketorolac Tromethamine (Toradol) 30 mg 1X ONCE IV Last administered on 18:56; Start 10/18/16 at 18:45; Stop 10/18/16 at 18:47; Status DC Lidocaine HCl (Xylocaine-Mpf 1% Vial) 5 ml 1X ONCE NEB Last administered on 19:53; Start 10/18/16 at 19:45; Stop 10/18/16 at 19:46; Status DC Diphenhydramine HCl (Benadryl) 25 mg 1X ONCE IVP Last administered on 20:02; Start 10/18/16 at 20:00; Stop 10/18/16 at 20:01; Status DC Ondansetron HCl (Zofran) 4 mg PRN Q8HRS PRN IV NAUSEA/VOMITING Last administered on 10/18/16 21:11; Start 10/18/16 at 21:00; Stop 10/19/16 at 20:59 Dextrose/Sodium Chloride 1,000 ml @ 125 mls/hr 1X ONCE IV Last administered on 10/18/16 21:15; Start 10/18/16 at 21:15; Stop 10/19/16 at 05:14; Status DC Hydromorphone HCl (Dilaudid) 3 mg 1X ONCE IV Last administered on 10/19/16 00 :49; Start 10/19/16 at 00:45; Stop 10/19/16 at 00:46; Status DC Clonazepam (KlonoPIN) 1 mg PRN TID PRN PO ANXIETY Last administered on 09:18; Start 10/19/16 at 00:30 Diphenhydramine HCl (Benadryl) 50 mg PRN Q6HRS PRN PO HEADACHE Last administered on 10/19/16 01:13; Start 10/19/16 at 00:30 Acetaminophen/ Hydrocodone Bitart (Lortab 5/325) 1 tab PRN Q4HRS PRN PO MODERATE PAIN Last administered on 10/19/16 02:25; Start 10/19/16 at 00:30 Nifedipine (Procardia Xl) 30 mg HS PO ; Start 10/19/16 at 21:00 Tizanidine HCl (Zanaflex) 4 mg PRN QID PRN PO MUSCLE SPASMS Last administered on 10/19/16 00:53; Start 10/19/16 at 00:30 Non-Formulary Medication 1 ml PRN BID PRN NS MIGRAINE HEADACHE; Start 10/19/16 at 00:30; Status UNV Dronabinol (Marinol) 5 mg PRN TID PRN PO NAUSEA Last administered on 10/19/16 09:18; Start 10/19/16 at 11:30 Non-Formulary Medication 1 tab DAILY PO ; Start 10/19/16 at 09:00; Stop at 12:50; Status DC Ondansetron HCl (Zofran Odt) 8 mg PRN Q8HRS PRN PO NAUSEA/VOMITING; Start 10/19 at 00:30 Quetiapine Fumarate (SEROquel XR) 300 mg QHS PO ; Start 10/19/16 at 21:00 Potassium Chloride 30 meq/ Sodium Chloride 1,015 ml @ 75 mls/hr [id number] IV Last administered on 10/19/16 01:14; Start 10/19/16 at 01:00 Gadobutrol (Gadavist) 7.5 mmol 1X ONCE IV Last administered on 10/19/16 14:20 ; Start 10/19/16 at 14:00; Stop 10/19/16 at 14:01; Status DC Active Scripts Active Reported Dihydroergotamine Mesylate 1 Ml [place].pump 1 Ml NS PRN BID PRN Hydrocodone-Apap 5-325 (Hydrocodone Bit/Acetaminophen) 1 Each Tablet 1 Tab PO PRN Q4HRS PRN Loestrin (Norethindrone A-E Estradiol) 1 Each Tablet 1 Tab PO DAILY Clonazepam 1 Mg Tablet 1 Mg PO PRN TID PRN Tizanidine Hcl 4 Mg Tablet 4 Mg PO QID PRN Seroquel (Quetiapine Fumarate) 300 Mg Tablet 300 Mg PO HS Marinol (Dronabinol) 5 Mg Capsule 5 Mg PO PRN TID PRN Nifedipine Er (Nifedipine) 30 Mg Tab.er.24 1 Tab PO HS Benadryl (Diphenhydramine Hcl) 25 Mg Capsule 2 Cap PO PRN Q6-8HRS PRN Zofran (Ondansetron Hcl) 8 Mg Tablet 8 Mg PO BID PRN Allergies Allergies: Coded Allergies: benztropine (Verified Allergy, Intermediate, SEVERE PAIN, 08/15/15) dexamethasone (Verified Allergy, Intermediate, SEVERE PAIN, 08/15/15) Vitals VITALS Vital Signs Date Time Temp Pulse Resp B/P (MAP) Pulse Ox O2 Delivery O2 Flow Rate FiO2 10/19/16 07:40 Room Air 10/19/16 07:00 98.4 74 18 100/53 (69) 90 98.4 10/18/16 21:00 15.0 Labs Labs Laboratory Tests Test 10/18/16 17:30 10/18/16 18:20 10/18/16 18:27 White Blood Count 6.7 x10^3/uL (4.0-11.0) Red Blood Count 4.51 x10^6/uL (3.50-5.40) Hemoglobin 13.3 g/dL (12.0-15.5) Hematocrit 38.8 % (36.0-47.0) Mean Corpuscular Volume 86 fL (79-100) Mean Corpuscular Hemoglobin 29 pg (25-35) Mean Corpuscular Hemoglobin Concent 34 g/dL (31-37) Red Cell Distribution Width 12.9 % (11.5-14.5) Platelet Count 243 x10^3/uL (140-400) Neutrophils (%) (Auto) 56 % (31-73) Lymphocytes (%) (Auto) 33 % (24-48) Monocytes (%) (Auto) 8 % (0-9) Eosinophils (%) (Auto) 3 % (0-3) Basophils (%) (Auto) 1 % (0-3) Neutrophils # (Auto) 3.7 x10^3uL (1.8-7.7) Lymphocytes # (Auto) 2.2 x10^3/uL (1.0-4.8) Monocytes # (Auto) 0.5 x10^3/uL (0.0-1.1) Eosinophils # (Auto) 0.2 x10^3/uL (0.0-0.7) Basophils # (Auto) 0.0 x10^3/uL (0.0-0.2) Erythrocyte Sedimentation Rate 13 (0-25) Sodium Level 138 mmol/L (136-145) Potassium Level 3.3 mmol/L (3.5-5.1) Chloride Level 100 mmol/L (98-107) Carbon Dioxide Level 26 mmol/L (21-32) Anion Gap 12 (6-14) Blood Urea Nitrogen 13 mg/dL (7-20) Creatinine 0.7 mg/dL (0.6-1.0) Estimated GFR (Cockcroft-Gault) 94.2 Glucose Level 89 mg/dL (70-99) Calcium Level 9.2 mg/dL (8.5-10.1) Urine Collection Type Unknown Urine Color Yellow Urine Clarity Clear Urine pH 7.5 Urine Specific [place] 1.010 Urine Protein Negative mg/dL (NEG-TRACE) Urine Glucose (UA) Negative mg/dL (NEG) Urine Ketones (Stick) 15 mg/dL (NEG) Urine Blood Negative (NEG) Urine Nitrite Negative (NEG) Urine Bilirubin Negative (NEG) Urine Urobilinogen Dipstick 0.2 mg/dL (0.2 mg/dL) Urine Leukocyte Esterase Small (NEG) Urine RBC 0 /HPF (0-2) Urine WBC 1-4 /HPF (0-4) Urine Squamous Epithelial Cells Mod /LPF Urine Bacteria Moderate /HPF (0-FEW) Bedside Urine HCG, Qualitative Hcg negative (Negative) Laboratory Tests Test 10/18/16 17:30 10/18/16 18:20 10/18/16 18:27 White Blood Count 6.7 x10^3/uL (4.0-11.0) Red Blood Count 4.51 x10^6/uL (3.50-5.40) Hemoglobin 13.3 g/dL (12.0-15.5) Hematocrit 38.8 % (36.0-47.0) Mean Corpuscular Volume 86 fL (79-100) Mean Corpuscular Hemoglobin 29 pg (25-35) Mean Corpuscular Hemoglobin Concent 34 g/dL (31-37) Red Cell Distribution Width 12.9 % (11.5-14.5) Platelet Count 243 x10^3/uL (140-400) Neutrophils (%) (Auto) 56 % (31-73) Lymphocytes (%) (Auto) 33 % (24-48) Monocytes (%) (Auto) 8 % (0-9) Eosinophils (%) (Auto) 3 % (0-3) Basophils (%) (Auto) 1 % (0-3) Neutrophils # (Auto) 3.7 x10^3uL (1.8-7.7) Lymphocytes # (Auto) 2.2 x10^3/uL (1.0-4.8) Monocytes # (Auto) 0.5 x10^3/uL (0.0-1.1) Eosinophils # (Auto) 0.2 x10^3/uL (0.0-0.7) Basophils # (Auto) 0.0 x10^3/uL (0.0-0.2) Erythrocyte Sedimentation Rate 13 (0-25) Sodium Level 138 mmol/L (136-145) Potassium Level 3.3 mmol/L (3.5-5.1) Chloride Level 100 mmol/L (98-107) Carbon Dioxide Level 26 mmol/L (21-32) Anion Gap 12 (6-14) Blood Urea Nitrogen 13 mg/dL (7-20) Creatinine 0.7 mg/dL (0.6-1.0) Estimated GFR (Cockcroft-Gault) 94.2 Glucose Level 89 mg/dL (70-99) Calcium Level 9.2 mg/dL (8.5-10.1) Urine Collection Type Unknown Urine Color Yellow Urine Clarity Clear Urine pH 7.5 Urine Specific [place] 1.010 Urine Protein Negative mg/dL (NEG-TRACE) Urine Glucose (UA) Negative mg/dL (NEG) Urine Ketones (Stick) 15 mg/dL (NEG) Urine Blood Negative (NEG) Urine Nitrite Negative (NEG) Urine Bilirubin Negative (NEG) Urine Urobilinogen Dipstick 0.2 mg/dL (0.2 mg/dL) Urine Leukocyte Esterase Small (NEG) Urine RBC 0 /HPF (0-2) Urine WBC 1-4 /HPF (0-4) Urine Squamous Epithelial Cells Mod /LPF Urine Bacteria Moderate /HPF (0-FEW) Bedside Urine HCG, Qualitative Hcg negative (Negative) TREV NOVOA MD Oct 19, 2016 15:44
[2016-10-19 16:24] LABS: INR 1.1 (0.8-1.1); PROTHROMBIN TIME PATIENT 13.2 SEC (11.7-14.0)
[2016-10-19 19:00] VITALS: BP 133/72
[2016-10-19] MEDS: METOPROLOL SUCC 24HR ER 25 MG TAB.ER.24H. PO SCH (20:20)
[2016-10-19] MEDS ORDERED: QUEtiapine 300 MG TAB.ER.24H. PO SCH (21:00)
[2016-10-19 23:00] VITALS: BP 148/80
[2016-10-20] MEDS: tiZANidine 4 MG TABLET. PO PRN (00:13)
[2016-10-20] MEDS: HYDROcodone/APAP 5/325MG 1 TAB TABLET PO PRN ×2 (00:13→16:27)
[2016-10-20 04:42] LABS: BASO % 1 % (0-3); EOS % 1 % (0-3); HEMATOCRIT 35.5 % (36.0-47.0); HEMOGLOBIN 12.1 g/dL (12.0-15.5); LYMPH % 33 % (24-48); MEAN CORPUSCULAR HEMOGLOBIN 29 pg (25-35); MEAN CORPUSCULAR HGB CONC 34 g/dL (31-37); MEAN CORPUSCULAR VOLUME 86 fL (79-100); MONO % 7 % (0-9); NEUT % 59 % (31-73); PLATELET COUNT 228 x10^3/uL (140-400); RED BLOOD COUNT 4.12 x10^6/uL (3.50-5.40); RED CELL DISTRIBUTION WIDTH 13.1 % (11.5-14.5); WHITE BLOOD COUNT 9.1 x10^3/uL (4.0-11.0)
[2016-10-20 04:56] LABS: CALCIUM 8.4 mg/dL (8.5-10.1); CREATININE 0.7 mg/dL (0.6-1.0); GFR 94.2; POTASSIUM 4.1 mmol/L (3.5-5.1)
[2016-10-20 07:00] VITALS: BP 117/65
[2016-10-20] MEDS: METOPROLOL SUCC 24HR ER 25 MG TAB.ER.24H. PO SCH (09:07)
[2016-10-20 11:00] VITALS: BP 112/59
--- NOTE | 2016-10-20 11:22 | PDOC ---
PROGRESS NOTES Chief Complaint Chief Complaint Intractable headache PMH: migraine headaches htn OA History of Present Illness History of Present Illness Pt laying in bed, at bedside. LP planned for today to measure CSF opening pressure. Neuro following Angiography MRI of brain: IMPRESSION: Normal intracranial MRA. Head CT: IMPRESSION: Negative study. Vitals Vitals Vital Signs Date Time Temp Pulse Resp B/P (MAP) Pulse Ox O2 Delivery O2 Flow Rate FiO2 10/20/16 09:07 68 117/65 10/20/16 07:00 98.1 16 96 Room Air 98.1 Physical Exam General: Alert, No acute distress Heart: Regular rate, No murmurs Lungs: Clear, Other (no crackles, no wheezes) Abdomen: Soft, No tenderness Extremities: No clubbing, No cyanosis Skin: No rashes, No breakdown Labs LABS Laboratory Tests Test 10/19/16 16:00 10/20/16 04:11 Prothrombin Time 13.2 SEC (11.7-14.0) Prothromb Time International Ratio 1.1 (0.8-1.1) White Blood Count 9.1 x10^3/uL (4.0-11.0) Red Blood Count 4.12 x10^6/uL (3.50-5.40) Hemoglobin 12.1 g/dL (12.0-15.5) Hematocrit 35.5 % (36.0-47.0) Mean Corpuscular Volume 86 fL (79-100) Mean Corpuscular Hemoglobin 29 pg (25-35) Mean Corpuscular Hemoglobin Concent 34 g/dL (31-37) Red Cell Distribution Width 13.1 % (11.5-14.5) Platelet Count 228 x10^3/uL (140-400) Neutrophils (%) (Auto) 59 % (31-73) Lymphocytes (%) (Auto) 33 % (24-48) Monocytes (%) (Auto) 7 % (0-9) Eosinophils (%) (Auto) 1 % (0-3) Basophils (%) (Auto) 1 % (0-3) Neutrophils # (Auto) 5.3 x10^3uL (1.8-7.7) Lymphocytes # (Auto) 3.0 x10^3/uL (1.0-4.8) Monocytes # (Auto) 0.6 x10^3/uL (0.0-1.1) Eosinophils # (Auto) 0.1 x10^3/uL (0.0-0.7) Basophils # (Auto) 0.0 x10^3/uL (0.0-0.2) Sodium Level 141 mmol/L (136-145) Potassium Level 4.1 mmol/L (3.5-5.1) Chloride Level 107 mmol/L (98-107) Carbon Dioxide Level 24 mmol/L (21-32) Anion Gap 10 (6-14) Blood Urea Nitrogen 11 mg/dL (7-20) Creatinine 0.7 mg/dL (0.6-1.0) Estimated GFR (Cockcroft-Gault) 94.2 Glucose Level 102 mg/dL (70-99) Calcium Level 8.4 mg/dL (8.5-10.1) Review of Systems Review of Systems headache fatigue Assessment and Plan Assessmemt and Plan Problems Medical Problems: (1) Migraine Status: Acute Migraine hypertension 1. Neuro: LP planned today, awaiting rec 2. CT of head and MRA of brain both negative 3. Continue pain medicine; Percocet 5 mg PO q 8 hr prn #5 written, in chart 4. Continue metoprolol 5. Possible DC if LP negative and ok with neuro 6. If DC f/up with pcp 1 week Problems: Comment Review of Relevant I have reviewed the following items sadaf (where applicable) has been applied. Labs Laboratory Tests Test 10/18/16 17:30 10/18/16 18:20 10/18/16 18:27 10/19/16 16:00 White Blood Count 6.7 x10^3/uL (4.0-11.0) Red Blood Count 4.51 x10^6/uL (3.50-5.40) Hemoglobin 13.3 g/dL (12.0-15.5) Hematocrit 38.8 % (36.0-47.0) Mean Corpuscular Volume 86 fL (79-100) Mean Corpuscular Hemoglobin 29 pg (25-35) Mean Corpuscular Hemoglobin Concent 34 g/dL (31-37) Red Cell Distribution Width 12.9 % (11.5-14.5) Platelet Count 243 x10^3/uL (140-400) Neutrophils (%) (Auto) 56 % (31-73) Lymphocytes (%) (Auto) 33 % (24-48) Monocytes (%) (Auto) 8 % (0-9) Eosinophils (%) (Auto) 3 % (0-3) Basophils (%) (Auto) 1 % (0-3) Neutrophils # (Auto) 3.7 x10^3uL (1.8-7.7) Lymphocytes # (Auto) 2.2 x10^3/uL (1.0-4.8) Monocytes # (Auto) 0.5 x10^3/uL (0.0-1.1) Eosinophils # (Auto) 0.2 x10^3/uL (0.0-0.7) Basophils # (Auto) 0.0 x10^3/uL (0.0-0.2) Erythrocyte Sedimentation Rate 13 (0-25) Sodium Level 138 mmol/L (136-145) Potassium Level 3.3 mmol/L (3.5-5.1) Chloride Level 100 mmol/L (98-107) Carbon Dioxide Level 26 mmol/L (21-32) Anion Gap 12 (6-14) Blood Urea Nitrogen 13 mg/dL (7-20) Creatinine 0.7 mg/dL (0.6-1.0) Estimated GFR (Cockcroft-Gault) 94.2 Glucose Level 89 mg/dL (70-99) Calcium Level 9.2 mg/dL (8.5-10.1) Urine Collection Type Unknown Urine Color Yellow Urine Clarity Clear Urine pH 7.5 Urine Specific [place] 1.010 Urine Protein Negative mg/dL (NEG-TRACE) Urine Glucose (UA) Negative mg/dL (NEG) Urine Ketones (Stick) 15 mg/dL (NEG) Urine Blood Negative (NEG) Urine Nitrite Negative (NEG) Urine Bilirubin Negative (NEG) Urine Urobilinogen Dipstick 0.2 mg/dL (0.2 mg/dL) Urine Leukocyte Esterase Small (NEG) Urine RBC 0 /HPF (0-2) Urine WBC 1-4 /HPF (0-4) Urine Squamous Epithelial Cells Mod /LPF Urine Bacteria Moderate /HPF (0-FEW) Bedside Urine HCG, Qualitative Hcg negative (Negative) Prothrombin Time 13.2 SEC (11.7-14.0) Prothromb Time International Ratio 1.1 (0.8-1.1) Test 10/20/16 04:11 White Blood Count 9.1 x10^3/uL (4.0-11.0) Red Blood Count 4.12 x10^6/uL (3.50-5.40) Hemoglobin 12.1 g/dL (12.0-15.5) Hematocrit 35.5 % (36.0-47.0) Mean Corpuscular Volume 86 fL (79-100) Mean Corpuscular Hemoglobin 29 pg (25-35) Mean Corpuscular Hemoglobin Concent 34 g/dL (31-37) Red Cell Distribution Width 13.1 % (11.5-14.5) Platelet Count 228 x10^3/uL (140-400) Neutrophils (%) (Auto) 59 % (31-73) Lymphocytes (%) (Auto) 33 % (24-48) Monocytes (%) (Auto) 7 % (0-9) Eosinophils (%) (Auto) 1 % (0-3) Basophils (%) (Auto) 1 % (0-3) Neutrophils # (Auto) 5.3 x10^3uL (1.8-7.7) Lymphocytes # (Auto) 3.0 x10^3/uL (1.0-4.8) Monocytes # (Auto) 0.6 x10^3/uL (0.0-1.1) Eosinophils # (Auto) 0.1 x10^3/uL (0.0-0.7) Basophils # (Auto) 0.0 x10^3/uL (0.0-0.2) Sodium Level 141 mmol/L (136-145) Potassium Level 4.1 mmol/L (3.5-5.1) Chloride Level 107 mmol/L (98-107) Carbon Dioxide Level 24 mmol/L (21-32) Anion Gap 10 (6-14) Blood Urea Nitrogen 11 mg/dL (7-20) Creatinine 0.7 mg/dL (0.6-1.0) Estimated GFR (Cockcroft-Gault) 94.2 Glucose Level 102 mg/dL (70-99) Calcium Level 8.4 mg/dL (8.5-10.1) Laboratory Tests Test 10/19/16 16:00 10/20/16 04:11 Prothrombin Time 13.2 SEC (11.7-14.0) Prothromb Time International Ratio 1.1 (0.8-1.1) White Blood Count 9.1 x10^3/uL (4.0-11.0) Red Blood Count 4.12 x10^6/uL (3.50-5.40) Hemoglobin 12.1 g/dL (12.0-15.5) Hematocrit 35.5 % (36.0-47.0) Mean Corpuscular Volume 86 fL (79-100) Mean Corpuscular Hemoglobin 29 pg (25-35) Mean Corpuscular Hemoglobin Concent 34 g/dL (31-37) Red Cell Distribution Width 13.1 % (11.5-14.5) Platelet Count 228 x10^3/uL (140-400) Neutrophils (%) (Auto) 59 % (31-73) Lymphocytes (%) (Auto) 33 % (24-48) Monocytes (%) (Auto) 7 % (0-9) Eosinophils (%) (Auto) 1 % (0-3) Basophils (%) (Auto) 1 % (0-3) Neutrophils # (Auto) 5.3 x10^3uL (1.8-7.7) Lymphocytes # (Auto) 3.0 x10^3/uL (1.0-4.8) Monocytes # (Auto) 0.6 x10^3/uL (0.0-1.1) Eosinophils # (Auto) 0.1 x10^3/uL (0.0-0.7) Basophils # (Auto) 0.0 x10^3/uL (0.0-0.2) Sodium Level 141 mmol/L (136-145) Potassium Level 4.1 mmol/L (3.5-5.1) Chloride Level 107 mmol/L (98-107) Carbon Dioxide Level 24 mmol/L (21-32) Anion Gap 10 (6-14) Blood Urea Nitrogen 11 mg/dL (7-20) Creatinine 0.7 mg/dL (0.6-1.0) Estimated GFR (Cockcroft-Gault) 94.2 Glucose Level 102 mg/dL (70-99) Calcium Level 8.4 mg/dL (8.5-10.1) Medications Current Medications Diphenhydramine HCl (Benadryl) 50 mg 1X ONCE IVP Last administered on 17:45; Start 10/18/16 at 17:30; Stop 10/18/16 at 17:31; Status DC Promethazine HCl 12.5 mg/Sodium Chloride 50.5 ml @ 151.5 mls/ hr PRN Q6HRS PRN IV NAUSEA/VOMITING Last administered on 10/18/16 17:50; Start 10/18/16 at 17:30 Methylprednisolone Sodium Succinate (SOLU-Medrol 125MG VIAL) 125 mg 1X ONCE IV Last administered on 10/18/16 17:45; Start 10/18/16 at 17:30; Stop 10/18/16 at 17:31; Status DC Sodium Chloride 1,000 ml @ 1,000 mls/hr 1X ONCE IV Last administered on 17:49; Start 10/18/16 at 17:30; Stop 10/18/16 at 18:29; Status DC Hydromorphone HCl (Dilaudid) 1 mg PRN Q15MIN PRN IV/SQ PAIN GREATER THAN 3/10 Last administered on 10/18/16 20:03; Start 10/18/16 at 18:45; Stop 10/19/16 at 00:23; Status DC Magnesium Sulfate/ Dextrose 100 ml @ 100 mls/hr 1X ONCE IV Last administered on 10/18/16 18:57; Start 10/18/16 at 18:45; Stop 10/18/16 at 19:44; Status DC Ketorolac Tromethamine (Toradol) 30 mg 1X ONCE IV Last administered on 18:56; Start 10/18/16 at 18:45; Stop 10/18/16 at 18:47; Status DC Lidocaine HCl (Xylocaine-Mpf 1% Vial) 5 ml 1X ONCE NEB Last administered on 19:53; Start 10/18/16 at 19:45; Stop 10/18/16 at 19:46; Status DC Diphenhydramine HCl (Benadryl) 25 mg 1X ONCE IVP Last administered on 20:02; Start 10/18/16 at 20:00; Stop 10/18/16 at 20:01; Status DC Ondansetron HCl (Zofran) 4 mg PRN Q8HRS PRN IV NAUSEA/VOMITING Last administered on 10/18/16 21:11; Start 10/18/16 at 21:00; Stop 10/19/16 at 20:59 ; Status DC Dextrose/Sodium Chloride 1,000 ml @ 125 mls/hr 1X ONCE IV Last administered on 10/18/16 21:15; Start 10/18/16 at 21:15; Stop 10/19/16 at 05:14; Status DC Hydromorphone HCl (Dilaudid) 3 mg 1X ONCE IV Last administered on 10/19/16 00 :49; Start 10/19/16 at 00:45; Stop 10/19/16 at 00:46; Status DC Clonazepam (KlonoPIN) 1 mg PRN TID PRN PO ANXIETY Last administered on 09:18; Start 10/19/16 at 00:30 Diphenhydramine HCl (Benadryl) 50 mg PRN Q6HRS PRN PO HEADACHE Last administered on 10/19/16 01:13; Start 10/19/16 at 00:30 Acetaminophen/ Hydrocodone Bitart (Lortab 5/325) 1 tab PRN Q4HRS PRN PO MODERATE PAIN Last administered on 10/20/16 00:13; Start 10/19/16 at 00:30 Nifedipine (Procardia Xl) 30 mg HS PO ; Start 10/19/16 at 21:00 Tizanidine HCl (Zanaflex) 4 mg PRN QID PRN PO MUSCLE SPASMS Last administered on 10/20/16 00:13; Start 10/19/16 at 00:30 Non-Formulary Medication 1 ml PRN BID PRN NS MIGRAINE HEADACHE; Start 10/19/16 at 00:30; Status UNV Dronabinol (Marinol) 5 mg PRN TID PRN PO NAUSEA Last administered on 10/19/16 09:18; Start 10/19/16 at 11:30 Non-Formulary Medication 1 tab DAILY PO ; Start 10/19/16 at 09:00; Stop at 12:50; Status DC Ondansetron HCl (Zofran Odt) 8 mg PRN Q8HRS PRN PO NAUSEA/VOMITING; Start 10/19 at 00:30 Quetiapine Fumarate (SEROquel XR) 300 mg QHS PO Last administered on 10/19/16 20:20; Start 10/19/16 at 21:00 Potassium Chloride 30 meq/ Sodium Chloride 1,015 ml @ 75 mls/hr [id number] IV Last administered on 10/19/16 17:44; Start 10/19/16 at 01:00 Gadobutrol (Gadavist) 7.5 mmol 1X ONCE IV Last administered on 10/19/16 14:20 ; Start 10/19/16 at 14:00; Stop 10/19/16 at 14:01; Status DC Metoprolol Succinate (Toprol Xl) 25 mg DAILY PO Last administered on 10/20/16 09:07; Start 10/19/16 at 19:00 Active Scripts Active Reported Dihydroergotamine Mesylate 1 Ml [facility].pump 1 Ml NS PRN BID PRN Hydrocodone-Apap 5-325 (Hydrocodone Bit/Acetaminophen) 1 Each Tablet 1 Tab PO PRN Q4HRS PRN Loestrin (Norethindrone A-E Estradiol) 1 Each Tablet 1 Tab PO DAILY Clonazepam 1 Mg Tablet 1 Mg PO PRN TID PRN Tizanidine Hcl 4 Mg Tablet 4 Mg PO QID PRN Seroquel (Quetiapine Fumarate) 300 Mg Tablet 300 Mg PO HS Marinol (Dronabinol) 5 Mg Capsule 5 Mg PO PRN TID PRN Nifedipine Er (Nifedipine) 30 Mg Tab.er.24 1 Tab PO HS Benadryl (Diphenhydramine Hcl) 25 Mg Capsule 2 Cap PO PRN Q6-8HRS PRN Zofran (Ondansetron Hcl) 8 Mg Tablet 8 Mg PO BID PRN Vitals/I & O Vital Sign - Last 24 Hours 10/19/16 10/19/16 10/19/16 10/19/16 15:00 17:12 18:02 19:00 Temp 98.1 98.1 98.1 98.1 Pulse 76 89 Resp 18 20 B/P (MAP) 122/47 (72) 133/72 (92) Pulse Ox 94 100 O2 Delivery Room Air Room Air Room Air Room Air 10/19/16 10/19/16 10/19/16 10/19/16 20:00 20:20 20:20 23:00 Temp 97.9 97.9 Pulse 89 89 84 Resp 20 B/P (MAP) 133/72 133/72 148/80 (102) Pulse Ox 95 O2 Delivery Room Air Room Air 10/20/16 10/20/16 10/20/16 00:13 07:00 09:07 Temp 98.1 98.1 Pulse 68 68 Resp 16 B/P (MAP) 117/65 (82) 117/65 Pulse Ox 95 96 O2 Delivery Room Air Room Air Intake and Output 10/20/16 10/20/16 10/21/16 15:00 23:00 07:00 Intake Total 150 ml Balance 150 ml DAVEI FREY III DO Oct 20, 2016 11:22
[2016-10-20 11:32] LABS: CSF PROTEIN 40.4 mg/dL (15.0-45.0)
[2016-10-20 11:52] LABS: CSF CLARITY CLEAR; CSF COLOR COLORLESS
--- NOTE | 2016-10-20 13:57 | PDOC ---
PROGRESS NOTES Assessment Assessment Intractable migraine headache. Chronic migraine headache. Pseudotumor cerebri ? HTN OA Over weight. No evidence of Chiari malformation on MRI. No evidence of Chiari 1 malformation. RECOMMENDATIONS/PLAN: Pain control. Metoprolol 25 mg daily. LP to measure CSF opening pressure performed on 10/20/16, reports still pending. Discussed with patient and her at bedside on 10/20/16 after LP. HISTORY OF THE PRESENT ILLNESS: 36-y-old female patient with long standing history of chronic migraine headache since teenage age. She used to have frequent headaches about 15 days or more each month. Her headaches are at frontal head, around orbital area spreading to top, side and back of head as sharp pain. She rated her headaches 8-10/10. She was treated with multiple medications including Triptan, Topamax, Neurontin, Botox, DHE, etc, but stated not help. She has HTN and has been on a new calcium channel bc recently but seemed increased her headaches. No symptoms of mental status changes, projectile vomiting, blurred vision, diplopia, ataxia, aphasia, numbness or weakness. PAST MEDICAL HISTORY: Please see above. PAST SURGERY HISTORY: No major surgery recently. ALLERGY: Benztropine Dexamethason MEDICATIONS: Refer to [facility] FAMILY HISTORY: Mother has migraine headache. Father has aura w/o headache. SOCIAL HISTORY: Lives with her at home. Denies smoking, drinking, and illicit drug use. REVIEW OF SYSTEMS: Constitutional: No malnutrition, weight loss, cachexia. Head: No traumatic brain or head injury. Skin: No edema, or rash. Ear: No infection, tinnitus. Eyes: No vision loss or color blindness. Nose: No bleeding or purulent discharges. Hearing: No hearing decrease. Neck: No injury. Breast: No history of cancer, masses,or discharges. Cardiac:HTN. Pulmonary: No OPD. GI: No GI ulcer, GI bleeding. Urinary/genital: UTI. Endocrinologic: Over weight. Skeletomuscular: No muscular atrophy, deformity. Neurological: see HP. Psychiatric: Denies drug use/abuse. Otherwise, not [id number] review of systems. PHYSICAL EXAMINATION: General appearance is in subacute distress. HEENT: Normocephalic and nontraumatic. Eyes, nose, ears, and throat are unremarkable. Neck is supple. No lymphadenopathy. No crepitus. Cardiovascular: S1, S2, regular rate and rhythm. Pulmonary: Clear to auscultation bilaterally. Abdomen: Bowel sounds are positive. Extremities: No rash, lesions, or edema. No restriction of range of motion NEUROLOGICAL EXAMINATION: Alert Oriented to time, place and person. Pupils equal round. Not be able to tolerate light stimuli. EOMI. CN: no focal findings. Muscle tone: within normal. Muscle strength: 5 DTR: 2 Plantar reflex: Flexor response bilaterally Gait: not examined in bed. Sensory exam: no abnormal findings. Objective Objective Vital Signs Date Time Temp Pulse Resp B/P (MAP) Pulse Ox O2 Delivery O2 Flow Rate FiO2 10/20/16 11:00 98.1 75 12 112/59 (76) 96 Room Air 98.1 Intake and Output 10/21/16 07:00 Intake Total 150 ml Balance 150 ml Intake Oral 150 ml Vitals Signs Vitals VS - Last 72 Hours, by Label Date Time Temp Pulse Resp B/P (MAP) Pulse Ox O2 Delivery O2 Flow Rate FiO2 10/20/16 11:00 98.1 75 12 112/59 (76) 96 Room Air 98.1 10/20/16 09:07 68 117/65 10/20/16 08:00 Room Air 10/20/16 07:00 98.1 68 16 117/65 (82) 96 Room Air 98.1 10/20/16 00:13 95 Room Air 10/19/16 23:00 97.9 84 20 148/80 (102) 95 Room Air 97.9 10/19/16 20:20 89 133/72 10/19/16 20:20 89 133/72 10/19/16 20:00 Room Air 10/19/16 19:00 98.1 89 20 133/72 (92) 100 Room Air 98.1 10/19/16 18:02 Room Air 10/19/16 17:12 Room Air 10/19/16 15:00 98.1 76 18 122/47 (72) 94 Room Air 98.1 10/19/16 07:40 Room Air 10/19/16 07:00 98.4 74 18 100/53 (69) 90 Room Air 98.4 Laboratory Laboratory Laboratory Tests Test 10/19/16 16:00 10/20/16 04:11 10/20/16 10:50 Prothrombin Time 13.2 SEC (11.7-14.0) Prothromb Time International Ratio 1.1 (0.8-1.1) White Blood Count 9.1 x10^3/uL (4.0-11.0) Red Blood Count 4.12 x10^6/uL (3.50-5.40) Hemoglobin 12.1 g/dL (12.0-15.5) Hematocrit 35.5 % (36.0-47.0) Mean Corpuscular Volume 86 fL (79-100) Mean Corpuscular Hemoglobin 29 pg (25-35) Mean Corpuscular Hemoglobin Concent 34 g/dL (31-37) Red Cell Distribution Width 13.1 % (11.5-14.5) Platelet Count 228 x10^3/uL (140-400) Neutrophils (%) (Auto) 59 % (31-73) Lymphocytes (%) (Auto) 33 % (24-48) Monocytes (%) (Auto) 7 % (0-9) Eosinophils (%) (Auto) 1 % (0-3) Basophils (%) (Auto) 1 % (0-3) Neutrophils # (Auto) 5.3 x10^3uL (1.8-7.7) Lymphocytes # (Auto) 3.0 x10^3/uL (1.0-4.8) Monocytes # (Auto) 0.6 x10^3/uL (0.0-1.1) Eosinophils # (Auto) 0.1 x10^3/uL (0.0-0.7) Basophils # (Auto) 0.0 x10^3/uL (0.0-0.2) Sodium Level 141 mmol/L (136-145) Potassium Level 4.1 mmol/L (3.5-5.1) Chloride Level 107 mmol/L (98-107) Carbon Dioxide Level 24 mmol/L (21-32) Anion Gap 10 (6-14) Blood Urea Nitrogen 11 mg/dL (7-20) Creatinine 0.7 mg/dL (0.6-1.0) Estimated GFR (Cockcroft-Gault) 94.2 Glucose Level 102 mg/dL (70-99) Calcium Level 8.4 mg/dL (8.5-10.1) CSF Color Colorless CSF Clarity Clear CSF WBC 0 CSF RBC 0 CSF Glucose 69 mg/dL (37-70) CSF Total Protein 40.4 mg/dL (15.0-45.0) Microbiology 10/20/16 Gram Stain - Final, Complete Medication Medications Current Medications Gadobutrol (Gadavist) 7.5 mmol 1X ONCE IV Last administered on 10/19/16 14:20 ; Start 10/19/16 at 14:00; Stop 10/19/16 at 14:01; Status DC Metoprolol Succinate (Toprol Xl) 25 mg DAILY PO Last administered on 10/20/16 09:07; Start 10/19/16 at 19:00 Nifedipine (Procardia Xl) 30 mg HS PO ; Start 10/19/16 at 21:00 Quetiapine Fumarate (SEROquel XR) 300 mg QHS PO Last administered on 10/19/16 20:20; Start 10/19/16 at 21:00 Comment Review of Relevant I have reviewed the following items sadaf (where applicable) has been applied. TREV NOVOA MD Oct 20, 2016 13:57
--- NOTE | 2016-10-20 14:49 | RAD ---
Indication suspect elevated intracranial pressure. Lumbar puncture for purposes of acquiring CSF and measuring pressures was requested. Lumbar puncture was explained to the patient. The risks of infection and bleeding were outlined. The possibility of postprocedure headache necessitating placement of a patch was also discussed. The patient understood the risks associated with the procedure and wished to proceed. The patient was placed in a left side down decubitus position. An appropriate level for entry was palpated. Under fluoroscopic guidance the skin was marked and an photogrammetric tech was selected. The skin was prepped and draped in the routine fashion. A midline approach, again with the patient in a left side down decubitus position, was utilized. A 20-gauge spinal needle was utilized. The subarachnoid space was entered at L2-3. Clear CSF was encountered. The opening pressure was 18 mmHg. The closing pressure was 16. A single fluoroscopic spot image was obtained associated with the exam. Approximately 9 cc of fluid was withdrawn and into 4 tubes and sent to the laboratory for analysis. Fluoroscopy time associated with the procedure was 1.3 minutes. The patient tolerated the procedure unremarkably IMPRESSION: Successful lumbar puncture for purposes of acquiring CSF and measuring pressures.
[2016-10-20] MEDS: clonazePAM 1 MG TABLET PO PRN (16:26)
== END 2016-10-20 17:15 | disposition home or self-care (01) | DRG 103 ==
LOC: ER 16:00 → 5 NORTH 20:30 → OBSVTOIN 10-20 08:30
PROVIDERS: ADMIT Internal Medicine Hematology & Oncology; ATTEND Internal Medicine Hematology & Oncology
PROC: 009U3ZX Drainage of Spinal Canal, Percutaneous Approach, Diagnostic (ICD-10-PCS; principal; 2016-10-20)
PROC: B01B1ZZ Fluoroscopy of Spinal Cord using Low Osmolar Contrast (ICD-10-PCS; 2016-10-20)
DX: G43.919 Migraine, unspecified, intractable, without status migrainosus (principal); I10 Essential (primary) hypertension; G93.2 Benign intracranial hypertension; Z79.899 Other long term (current) drug therapy
CPT/HCPCS: 36415; 62270; 70450; 70544; 70553; 80048; 81001; 81025; 82945; 84157; 85025; 85610; 85651; 87071; 87075; 87086; 87205; 89051; 96365; 96367; 96375; 96376; A9585; G0378; G0379; J1170; J1200; J1885; J2405; J2550; J2930; J3475; J7030; Q0163; Q0167; 99285-25

== ENCOUNTER 2016-10-24 15:26 | Inpatient (IN) | payer OTHER ==
[~2016-10-24] VITALS: Ht 160 cm; Wt 85.3 kg
[~2016-10-24 15:26] MED LIST changes: +CLON1TAB3 PO; +DIHY1SPR NS; +DRON5CAP PO; +HYDR-2758 PO; +NIFE30TA17 PO; +NORE-83 PO; +QUET300T5 PO; +TIZA4TAB PO
[2016-10-24 16:38] VITALS: BP 149/84
[2016-10-24] MEDS ORDERED: ACETAMINOPHEN 325 MG TABLET. PO PRN (17:15)
[2016-10-24] MEDS ORDERED: DOCUSATE SODIUM 100 MG CAPSULE. PO PRN (17:15)
[2016-10-24] MEDS ORDERED: hydrALAZINE 20 MG/ML VIAL. IVP PRN (17:15)
[2016-10-24] MEDS ORDERED: ONDANSETRON PF 4 MG/2 ML VIAL. IV PRN (17:15)
[2016-10-24] MEDS ORDERED: MORPHINE SULFATE 2 MG/ML DISP.SYRIN. IV PRN (17:15)
[2016-10-24] MEDS ORDERED: METO25TA4 PO (17:21)
[2016-10-24] MEDS ORDERED: DIHYDROERGOTAMINE MESYLATE NS PRN (17:30)
--- NOTE | 2016-10-24 17:30 | PDOC1 ---
History and Physical Date of Admission Date of Admission 10/24/16 Identification/Chief Complaint Chief Complaint headache Problems: Source Source: Patient History of Present Illness History of Present Illness 36-y-old female patient with long standing history of chronic migraine headache since teenage age was sent from dr. Garcia office for intractable headache. 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 Pt was just DCed from here last sunday, for same reason. Head CT, MRI, MRA , LP all neg and ruled out Pseudotumor cerebri . Pt said after LP, still severe headache, also back pain from LP. The headache is all head, sharp, constant, 10/10, po oxycodone 10 didnot help at home, noise and light bother her. + nausea. no vomiting, no fever, chills, cough, sob. Pt then went to see dr. Garcia in the office again today, c/o severe headache, then dr. Garcia called me to direct admission. As per dr. Garcia, will do MRI w contrast. in the past , pt was treated with multiple medications including Triptan, Topamax, Neurontin, Botox, DHE, etc, but stated not help. She had solumedrol before , which helped. Past Medical History Past Medical History migraine Cardiovascular: HTN Past Surgical History Past Surgical History: No pertinent history Family History Family History: Hypertension Social History Smoke: No ALCOHOL: none Drugs: None Allergies Allergies Allergies Coded Allergies Type Severity Reaction Last Updated Verified benztropine Allergy Intermediate SEVERE PAIN 08/15/15 Yes dexamethasone Allergy Intermediate SEVERE PAIN 08/15/15 Yes ROS Review of System CONSTITUTIONAL: No fever or chills EYES: No recent changes SKIN: No rash or itching CARDIOVASCULAR: No chest pain, syncope, palpitations, or edema RESPIRATORY: No SOB or cough GASTROINTESTINAL: No nausea, vomiting or abdominal pain NEUROLOGICAL: No headaches or weakness ENDOCRINE: No cold or heat intolerance GENITOURINARY: No urgency or frequency of urination MUSCULOSKELETAL: No back pain or joint pain LYMPHATICS: No enlarged lymph nodes PSYCHIATRIC: No anxiety or depression Physical Exam Physical Exam GEN.: No apparent distress. Alert and oriented. HEENT: Head is normocephalic, atraumatic NECK: Supple. LUNGS: Clear to auscultation. HEART: RRR, S1, S2 present. Peripheral pulses intact ABDOMEN: Soft, nontender. Positive bowel sounds. EXTREMITIES: Without any cyanosis. NEUROLOGIC: Normal speech, normal tone PSYCHIATRIC: Normal affect, normal mood. SKIN: No ulcerations Vitals Vitals Vital Signs Date Time Temp Pulse Resp B/P (MAP) Pulse Ox O2 Delivery O2 Flow Rate FiO2 10/24/16 16:38 97.8 78 18 149/84 (105) 97 Room Air 97.8 VTE Prophylaxis Ordered VTE Prophylaxis Devices: Yes VTE Pharmacological Prophylaxi: Yes Assessment/Plan Assessment/Plan Intractable headache 2/2 migraine flare likely Chronic migraine headache HTN OA Over weight. plan; will get neuro consult brain mri w/wo contrast need verify home meds supportive care for pain control, and nausea control dvt ppx KATHY FIERRO MD Oct 24, 2016 17:30
[2016-10-24] MEDS ORDERED: ONDANSETRON ODT 4 MG TAB.RAPDIS. PO PRN (17:45)
[2016-10-24] MEDS: diphenhydrAMINE 50 MG/ML VIAL IVP PRN (18:58)
[2016-10-24] MEDS: KETOROLAC 15 MG/ML VIAL. IV PRN (18:59)
[2016-10-24] MEDS: METOCLOPRAMIDE HCL 10 MG/2 ML VIAL. IV PRN (18:59)
[2016-10-24] MEDS: HYDROmorphone 2 MG/ML VIAL IV PRN (19:00)
[2016-10-24] MEDS: ENOXAPARIN 40 MG/0.4 ML SYRINGE. SQ SCH (19:01)
[2016-10-24 19:47] VITALS: BP 151/82
[2016-10-24] MEDS ORDERED: GADOBUTROL 7.5 MMOL/7.5 ML VIAL IV ONE (20:15)
--- NOTE | 2016-10-24 20:59 | RAD ---
MRI lumbar spine without and with contrast TECHNIQUE: Multiplanar MRI sequences of the lumbar spine were acquired acquired prior to and after intravenous injection of 80 mL gadolinium this intravenous contrast. HISTORY: Lumbar puncture 4 days ago, continuing headache may be a spinal headache, evaluate cerebral spinal fluid leak. Comparisons: None available. FINDINGS: Lumbar vertebral body height and alignment intact. No bone marrow edema. Conus medullaris terminates at the upper L1 vertebral level. No tethering or mass of the cauda equina. No epidural fluid collections. No paraspinal fluid collections. There may be mild paraspinous edema adjacent of the L3 spinous process perhaps near the region of lumbar puncture however there is no fluid collection. No collapse of the thecal sac. No pathologic intradural enhancement. Degenerative changes are described below. L1-L2: Unremarkable. L2-L3: Unremarkable. L3-L4: Mild facet hypertrophy. No spinal canal or neural foraminal stenosis. L4-L5: Disc desiccation, mild disc bulge and areas of enhancing annulus tear laterally, mild facet osteophytes, mild neural foraminal stenoses. No spinal canal stenosis. L5-S1: Disc desiccation, left paracentral and lateral shallow broad-based disc protrusion with enhancing annulus tear, no spinal canal or neural foraminal stenosis. IMPRESSION: Lower lumbar spine disc disease as described above. No spinal canal stenosis. Mild neural foraminal stenoses L4-5. No epidural or paraspinous fluid collection or collapse of the dural sac or dural enhancement to suggest spinal leak. See discussion above. Electronically signed by: Dwayne Tuttle MD (10/24/2016 8:56 PM) [id number]
[2016-10-24] MEDS: METOPROLOL TART IMMED RELEASE 25 MG TABLET. PO SCH (21:11)
[2016-10-24] MEDS: SUMAtriptan SUCCINATE 25 MG TABLET PO PRN (21:11)
[2016-10-24] MEDS: oxyCODONE/APAP 10/325 1 TAB TABLET PO PRN (21:11)
[2016-10-24] MEDS: QUEtiapine 300 MG TAB.ER.24H. PO SCH (21:11)
[2016-10-24] MEDS: clonazePAM 1 MG TABLET PO PRN (21:11)
[2016-10-24 23:22] VITALS: BP 147/78
[2016-10-25] VITALS (7 sets, daily range): BP systolic 115–153; BP diastolic 59–92
[2016-10-25] MEDS: SUMAtriptan SUCCINATE 25 MG TABLET PO PRN (00:20)
[2016-10-25] MEDS: HYDROmorphone 2 MG/ML VIAL IV PRN ×3 (00:20→13:07)
[2016-10-25] MEDS: diphenhydrAMINE HCL 25 MG CAPSULE PO PRN (00:20)
[2016-10-25] MEDS ORDERED: QUET100T4 PO (00:45)
[2016-10-25] MEDS: oxyCODONE/APAP 10/325 1 TAB TABLET PO PRN ×3 (02:37→23:35)
[2016-10-25] MEDS: KETOROLAC 15 MG/ML VIAL. IV PRN (02:37)
[2016-10-25 06:02] LABS: BASO % 0 % (0-3); EOS % 2 % (0-3); HEMOGLOBIN 13.2 g/dL (12.0-15.5); LYMPH # 3.3 x10^3/uL (1.0-4.8); LYMPH % 34 % (24-48); MEAN CORPUSCULAR HEMOGLOBIN 30 pg (25-35); MEAN CORPUSCULAR HGB CONC 36 g/dL (31-37); MEAN CORPUSCULAR VOLUME 84 fL (79-100); MONO % 9 % (0-9); NEUT % 55 % (31-73); PLATELET COUNT 248 x10^3/uL (140-400); RED BLOOD COUNT 4.39 x10^6/uL (3.50-5.40); WHITE BLOOD COUNT 9.6 x10^3/uL (4.0-11.0)
[2016-10-25] MEDS: clonazePAM 1 MG TABLET PO PRN ×3 (06:10→22:20)
[2016-10-25] MEDS: METOCLOPRAMIDE HCL 10 MG/2 ML VIAL. IV PRN (06:10)
[2016-10-25 06:31] LABS: CALCIUM 8.8 mg/dL (8.5-10.1); CREATININE 0.8 mg/dL (0.6-1.0); GFR 80.7; POTASSIUM 3.9 mmol/L (3.5-5.1)
[2016-10-25] MEDS: DRONABINOL 2.5 MG CAPSULE. PO SCH ×3 (07:30→16:30)
--- NOTE | 2016-10-25 08:52 | PDOC2 ---
NEUROLOGY CONSULT Date of Admission Date of Admission DATE: 10/25/16 TIME: 08:46 Reason for Consult Reason for Consult: headache Referring Physician Referring Physician: Dr. Fortune PCP: Dr. Sales Source Source: Chart review, Patient History of Present Illness History of Present Illness Please see Dr. Garcia's consult dictated yesterday but filed under the last visit. Briefly, the patient is a 36-year-old right-handed female with a long history of intractable migraines. She has [facility]. At the last visit, the patient did have a lumbar puncture which was negative for increased pressure all stop the patient has been on a number of medications including Botox injections without relief. She has never been on intravenous DHE although she does use intranasal DHE at home with some effect. She has a 10/ 10 headache. It is not positional, and in fact she is sitting up eating breakfast as I examine her. She does have some back pain and has undergone a lumbar MRI as reviewed below. Current Medications Current Medications Current Medications Acetaminophen (Tylenol) 650 mg PRN Q6HRS PRN PO FEVER; Start 10/24/16 at 17:15 Ondansetron HCl (Zofran) 4 mg PRN Q6HRS PRN IV NAUSEA/VOMITING; Start 10/24/16 at 17:15 Morphine Sulfate 2 mg PRN Q2HR PRN IV PAIN; Start 10/24/16 at 17:15 Tramadol HCl (Ultram) 50 mg PRN Q6HRS PRN PO PAIN; Start 10/24/16 at 17:15 Hydralazine HCl (Apresoline) 10 mg PRN Q4HRS PRN IVP ELEVATED BP, SEE COMMENTS ; Start 10/24/16 at 17:15 Docusate Sodium (Colace) 100 mg PRN DAILY PRN PO CONSTIPATION; Start 10/24/16 at 17:15 Hydromorphone HCl (Dilaudid) 2 mg PRN Q4HRS PRN IV PAIN Last administered on t 06:10; Start 10/24/16 at 17:15 Oxycodone/ Acetaminophen (Percocet 10/325) 1 tab PRN Q4HRS PRN PO PAIN Last administered on 10/25/16 02:37; Start 10/24/16 at 17:15 Enoxaparin Sodium (Lovenox 40mg Syringe) 40 mg Q24H SQ Last administered on 19:01; Start 10/24/16 at 18:00 Sumatriptan Succinate (Imitrex) 50 mg PRN Q2HR PRN PO MIGRAINE HEADACHE Last administered on 10/25/16 00:20; Start 10/24/16 at 17:30 Clonazepam (KlonoPIN) 1 mg PRN TID PRN PO ANXIETY Last administered on 06:10; Start 10/24/16 at 17:30 Diphenhydramine HCl (Benadryl) 50 mg PRN Q6HRS PRN PO HEADACHE Last administered on 10/25/16 00:20; Start 10/24/16 at 17:30 Acetaminophen/ Hydrocodone Bitart (Lortab 5/325) 1 tab PRN Q4HRS PRN PO PAIN; Start 10/24/16 at 17:30 Metoprolol Tartrate (Lopressor) 25 mg QHS PO Last administered on 10/24/16 21: 11; Start 10/24/16 at 21:00 Tizanidine HCl (Zanaflex) 4 mg PRN QID PRN PO MUSCLE SPASMS; Start 10/24/16 at 17:30 Non-Formulary Medication 1 ml PRN BID PRN NS MIGRAINE HEADACHE; Start 10/24/16 at 17:30; Status UNV Dronabinol (Marinol) 5 mg TIDAC PO ; Start 10/25/16 at 07:30 Non-Formulary Medication 1 tab DAILY PO ; Start 10/25/16 at 09:00; Status UNV Ondansetron HCl (Zofran Odt) 8 mg PRN BID PRN PO NAUSEA/VOMITING; Start at 17:45 Quetiapine Fumarate (SEROquel XR) 300 mg QHS PO Last administered on 10/24/16 21:11; Start 10/24/16 at 21:00 Ketorolac Tromethamine (Toradol) 15 mg PRN Q6HRS PRN IV PAIN Last administered on 10/25/16 02:37; Start 10/24/16 at 17:30; Stop 10/29/16 at 17:29 Diphenhydramine HCl (Benadryl) 25 mg PRN Q6HRS PRN IVP ITCHING Last administered on 10/24/16 18:58; Start 10/24/16 at 17:30 Metoclopramide HCl (Reglan) 10 mg PRN Q6HRS PRN IV NAUSEA/VOMITING Last administered on 10/25/16 06:10; Start 10/24/16 at 17:30 Gadobutrol (Gadavist) 7.5 mmol 1X ONCE IV Last administered on 10/24/16 20:36 ; Start 10/24/16 at 20:15; Stop 10/24/16 at 20:18; Status DC Active Scripts Active Reported Seroquel (Quetiapine Fumarate) 100 Mg Tablet 150 Mg PO PRN QHS PRN Metoprolol Tartrate 25 Mg Tablet 1 Tab PO QHS Dihydroergotamine Mesylate 1 Ml [place].pump 1 Ml NS PRN BID PRN Hydrocodone-Apap 5-325 (Hydrocodone Bit/Acetaminophen) 1 Each Tablet 1 Tab PO PRN Q4HRS PRN Loestrin (Norethindrone A-E Estradiol) 1 Each Tablet 1 Tab PO DAILY Clonazepam 1 Mg Tablet 1 Mg PO PRN TID PRN Tizanidine Hcl 4 Mg Tablet 4 Mg PO QID PRN Seroquel (Quetiapine Fumarate) 300 Mg Tablet 300 Mg PO HS Marinol (Dronabinol) 5 Mg Capsule 5 Mg PO PRN TID PRN Nifedipine Er (Nifedipine) 30 Mg Tab.er.24 1 Tab PO HS Benadryl (Diphenhydramine Hcl) 25 Mg Capsule 2 Cap PO PRN Q6-8HRS PRN Zofran (Ondansetron Hcl) 8 Mg Tablet 8 Mg PO BID PRN Allergies Allergies: Coded Allergies: benztropine (Verified Allergy, Intermediate, SEVERE PAIN, 08/15/15) dexamethasone (Verified Allergy, Intermediate, SEVERE PAIN, 08/15/15) Physical Exam Physical Examination PHYSICAL EXAMINATION: Vital signs: see above. General appearance is normal and in no acute distress. HEENT: Normocephalic and nontraumatic. Eyes, nose, ears, and throat are unremarkable. Neck is supple. No lymphadenopathy. No bruits are heard over the carotid artery. No crepitus. NEUROLOGICAL EXAMINATION: Mental Status Examination: Alert. Oriented to time, place, and person. Answers questions and follows commends. Pupils are equal round and reactive to light and accommodation. Extraocular movements are intact. Visual field exam shows no defect on the direct confrontation. No motor or sensory deficits on the facial exam. Uvula in the midline and the soft palate elevated symmetrically. No deviation of the tongue to any direction. Gross hearing is normal. Shoulder shrug normal. Muscle tone is normal. Muscle strength is 5. Deep tendon reflexes are 2+ all around. Plantar reflex is with flexion response bilaterally. [id number] test performance is accurate. Alternative movements are accurate. Gait not tested. Sensory exam shows no deficits. No cerebellar signs are elicited. Vitals VITALS Vital Signs Date Time Temp Pulse Resp B/P (MAP) Pulse Ox O2 Delivery O2 Flow Rate FiO2 10/25/16 07:15 98.2 64 16 140/68 (92) 97 Room Air 98.2 Labs Labs Laboratory Tests Test 10/25/16 05:30 10/25/16 05:40 Sodium Level 140 mmol/L (136-145) Potassium Level 3.9 mmol/L (3.5-5.1) Chloride Level 105 mmol/L (98-107) Carbon Dioxide Level 24 mmol/L (21-32) Anion Gap 11 (6-14) Blood Urea Nitrogen 21 mg/dL (7-20) Creatinine 0.8 mg/dL (0.6-1.0) Estimated GFR (Cockcroft-Gault) 80.7 Glucose Level 94 mg/dL (70-99) Calcium Level 8.8 mg/dL (8.5-10.1) White Blood Count 9.6 x10^3/uL (4.0-11.0) Red Blood Count 4.39 x10^6/uL (3.50-5.40) Hemoglobin 13.2 g/dL (12.0-15.5) Hematocrit 37.0 % (36.0-47.0) Mean Corpuscular Volume 84 fL (79-100) Mean Corpuscular Hemoglobin 30 pg (25-35) Mean Corpuscular Hemoglobin Concent 36 g/dL (31-37) Red Cell Distribution Width 13.0 % (11.5-14.5) Platelet Count 248 x10^3/uL (140-400) Neutrophils (%) (Auto) 55 % (31-73) Lymphocytes (%) (Auto) 34 % (24-48) Monocytes (%) (Auto) 9 % (0-9) Eosinophils (%) (Auto) 2 % (0-3) Basophils (%) (Auto) 0 % (0-3) Neutrophils # (Auto) 5.2 x10^3uL (1.8-7.7) Lymphocytes # (Auto) 3.3 x10^3/uL (1.0-4.8) Monocytes # (Auto) 0.9 x10^3/uL (0.0-1.1) Eosinophils # (Auto) 0.1 x10^3/uL (0.0-0.7) Basophils # (Auto) 0.0 x10^3/uL (0.0-0.2) Laboratory Tests Test 10/25/16 05:30 10/25/16 05:40 Sodium Level 140 mmol/L (136-145) Potassium Level 3.9 mmol/L (3.5-5.1) Chloride Level 105 mmol/L (98-107) Carbon Dioxide Level 24 mmol/L (21-32) Anion Gap 11 (6-14) Blood Urea Nitrogen 21 mg/dL (7-20) Creatinine 0.8 mg/dL (0.6-1.0) Estimated GFR (Cockcroft-Gault) 80.7 Glucose Level 94 mg/dL (70-99) Calcium Level 8.8 mg/dL (8.5-10.1) White Blood Count 9.6 x10^3/uL (4.0-11.0) Red Blood Count 4.39 x10^6/uL (3.50-5.40) Hemoglobin 13.2 g/dL (12.0-15.5) Hematocrit 37.0 % (36.0-47.0) Mean Corpuscular Volume 84 fL (79-100) Mean Corpuscular Hemoglobin 30 pg (25-35) Mean Corpuscular Hemoglobin Concent 36 g/dL (31-37) Red Cell Distribution Width 13.0 % (11.5-14.5) Platelet Count 248 x10^3/uL (140-400) Neutrophils (%) (Auto) 55 % (31-73) Lymphocytes (%) (Auto) 34 % (24-48) Monocytes (%) (Auto) 9 % (0-9) Eosinophils (%) (Auto) 2 % (0-3) Basophils (%) (Auto) 0 % (0-3) Neutrophils # (Auto) 5.2 x10^3uL (1.8-7.7) Lymphocytes # (Auto) 3.3 x10^3/uL (1.0-4.8) Monocytes # (Auto) 0.9 x10^3/uL (0.0-1.1) Eosinophils # (Auto) 0.1 x10^3/uL (0.0-0.7) Basophils # (Auto) 0.0 x10^3/uL (0.0-0.2) Images Images MRI lumbar: umbar vertebral body height and alignment intact. No bone marrow edema. Conus medullaris terminates at the upper L1 vertebral level. No tethering or mass of the cauda equina. No epidural fluid collections. No paraspinal fluid collections. There may be mild paraspinous edema adjacent of the L3 spinous process perhaps near the region of lumbar puncture however there is no fluid collection. No collapse of the thecal sac. No pathologic intradural enhancement. Degenerative changes are described below. L1-L2: Unremarkable. L2-L3: Unremarkable. L3-L4: Mild facet hypertrophy. No spinal canal or neural foraminal stenosis. L4-L5: Disc desiccation, mild disc bulge and areas of enhancing annulus tear laterally, mild facet osteophytes, mild neural foraminal stenoses. No spinal canal stenosis. L5-S1: Disc desiccation, left paracentral and lateral shallow broad-based disc protrusion with enhancing annulus tear, no spinal canal or neural foraminal stenosis. IMPRESSION: Lower lumbar spine disc disease as described above. No spinal canal stenosis. Mild neural foraminal stenoses L4-5. No epidural or paraspinous fluid collection or collapse of the dural sac or dural enhancement to suggest spinal leak. See discussion above. Assessment/Plan Assessment/Plan Impression: Intractable migraine headache, status migrainosus Recommendations: I discussed risks, benefits, alternatives, side effects, and will start intravenous DHE I usually give IV steroids with the DHE but the patient is allergic to Decadron. I asked the patient to avoid the narcotics as they can interfere with the DHE effect. Patient does not need any additional testing. Thank you for letting me help the patient's care. AMIRA SANTACRUZ MD Oct 25, 2016 08:52
[2016-10-25] MEDS: METOCLOPRAMIDE HCL 10 MG/2 ML VIAL. IV SCH ×3 (10:30→22:00)
[2016-10-25] MEDS: DIHYDROERGOTAMINE 1 MG in IV NORMAL SALINE 50ML 50 ML IV SCH ×3 (10:30→22:00)
[2016-10-25] MEDS ORDERED: FLU VACC QS2017-18 (36MOS+)/PF 0.5 ML SYRINGE. VAX IM ONE (13:45)
--- NOTE | 2016-10-25 15:08 | PDOC ---
PROGRESS NOTES Chief Complaint Chief Complaint Intractable headache 2/2 migraine flare Chronic migraine headache w. acute flate, HTN OA obese, BMI 33 History of Present Illness History of Present Illness neuro consult fllowing, DHE infusion started still having pain Dr. Weaver following in hospital, I discussed outpateint f/u with Dr. Garcia supportive care for pain control, and nausea control Vitals Vitals Vital Signs Date Time Temp Pulse Resp B/P (MAP) Pulse Ox O2 Delivery O2 Flow Rate FiO2 10/25/16 13:44 95 Room Air 10/25/16 11:20 98.3 62 18 115/59 (77) 98.3 Physical Exam General: Alert, Cooperative, mild distress (pain) Heart: Regular rate Lungs: Clear, Other Extremities: No clubbing, No cyanosis Labs LABS Laboratory Tests Test 10/25/16 05:30 10/25/16 05:40 Sodium Level 140 mmol/L (136-145) Potassium Level 3.9 mmol/L (3.5-5.1) Chloride Level 105 mmol/L (98-107) Carbon Dioxide Level 24 mmol/L (21-32) Anion Gap 11 (6-14) Blood Urea Nitrogen 21 mg/dL (7-20) Creatinine 0.8 mg/dL (0.6-1.0) Estimated GFR (Cockcroft-Gault) 80.7 Glucose Level 94 mg/dL (70-99) Calcium Level 8.8 mg/dL (8.5-10.1) White Blood Count 9.6 x10^3/uL (4.0-11.0) Red Blood Count 4.39 x10^6/uL (3.50-5.40) Hemoglobin 13.2 g/dL (12.0-15.5) Hematocrit 37.0 % (36.0-47.0) Mean Corpuscular Volume 84 fL (79-100) Mean Corpuscular Hemoglobin 30 pg (25-35) Mean Corpuscular Hemoglobin Concent 36 g/dL (31-37) Red Cell Distribution Width 13.0 % (11.5-14.5) Platelet Count 248 x10^3/uL (140-400) Neutrophils (%) (Auto) 55 % (31-73) Lymphocytes (%) (Auto) 34 % (24-48) Monocytes (%) (Auto) 9 % (0-9) Eosinophils (%) (Auto) 2 % (0-3) Basophils (%) (Auto) 0 % (0-3) Neutrophils # (Auto) 5.2 x10^3uL (1.8-7.7) Lymphocytes # (Auto) 3.3 x10^3/uL (1.0-4.8) Monocytes # (Auto) 0.9 x10^3/uL (0.0-1.1) Eosinophils # (Auto) 0.1 x10^3/uL (0.0-0.7) Basophils # (Auto) 0.0 x10^3/uL (0.0-0.2) Comment Review of Relevant I have reviewed the following items sadaf (where applicable) has been applied. Labs Laboratory Tests Test 10/25/16 05:30 10/25/16 05:40 Sodium Level 140 mmol/L (136-145) Potassium Level 3.9 mmol/L (3.5-5.1) Chloride Level 105 mmol/L (98-107) Carbon Dioxide Level 24 mmol/L (21-32) Anion Gap 11 (6-14) Blood Urea Nitrogen 21 mg/dL (7-20) Creatinine 0.8 mg/dL (0.6-1.0) Estimated GFR (Cockcroft-Gault) 80.7 Glucose Level 94 mg/dL (70-99) Calcium Level 8.8 mg/dL (8.5-10.1) White Blood Count 9.6 x10^3/uL (4.0-11.0) Red Blood Count 4.39 x10^6/uL (3.50-5.40) Hemoglobin 13.2 g/dL (12.0-15.5) Hematocrit 37.0 % (36.0-47.0) Mean Corpuscular Volume 84 fL (79-100) Mean Corpuscular Hemoglobin 30 pg (25-35) Mean Corpuscular Hemoglobin Concent 36 g/dL (31-37) Red Cell Distribution Width 13.0 % (11.5-14.5) Platelet Count 248 x10^3/uL (140-400) Neutrophils (%) (Auto) 55 % (31-73) Lymphocytes (%) (Auto) 34 % (24-48) Monocytes (%) (Auto) 9 % (0-9) Eosinophils (%) (Auto) 2 % (0-3) Basophils (%) (Auto) 0 % (0-3) Neutrophils # (Auto) 5.2 x10^3uL (1.8-7.7) Lymphocytes # (Auto) 3.3 x10^3/uL (1.0-4.8) Monocytes # (Auto) 0.9 x10^3/uL (0.0-1.1) Eosinophils # (Auto) 0.1 x10^3/uL (0.0-0.7) Basophils # (Auto) 0.0 x10^3/uL (0.0-0.2) Laboratory Tests Test 10/25/16 05:30 10/25/16 05:40 Sodium Level 140 mmol/L (136-145) Potassium Level 3.9 mmol/L (3.5-5.1) Chloride Level 105 mmol/L (98-107) Carbon Dioxide Level 24 mmol/L (21-32) Anion Gap 11 (6-14) Blood Urea Nitrogen 21 mg/dL (7-20) Creatinine 0.8 mg/dL (0.6-1.0) Estimated GFR (Cockcroft-Gault) 80.7 Glucose Level 94 mg/dL (70-99) Calcium Level 8.8 mg/dL (8.5-10.1) White Blood Count 9.6 x10^3/uL (4.0-11.0) Red Blood Count 4.39 x10^6/uL (3.50-5.40) Hemoglobin 13.2 g/dL (12.0-15.5) Hematocrit 37.0 % (36.0-47.0) Mean Corpuscular Volume 84 fL (79-100) Mean Corpuscular Hemoglobin 30 pg (25-35) Mean Corpuscular Hemoglobin Concent 36 g/dL (31-37) Red Cell Distribution Width 13.0 % (11.5-14.5) Platelet Count 248 x10^3/uL (140-400) Neutrophils (%) (Auto) 55 % (31-73) Lymphocytes (%) (Auto) 34 % (24-48) Monocytes (%) (Auto) 9 % (0-9) Eosinophils (%) (Auto) 2 % (0-3) Basophils (%) (Auto) 0 % (0-3) Neutrophils # (Auto) 5.2 x10^3uL (1.8-7.7) Lymphocytes # (Auto) 3.3 x10^3/uL (1.0-4.8) Monocytes # (Auto) 0.9 x10^3/uL (0.0-1.1) Eosinophils # (Auto) 0.1 x10^3/uL (0.0-0.7) Basophils # (Auto) 0.0 x10^3/uL (0.0-0.2) Medications Current Medications Acetaminophen (Tylenol) 650 mg PRN Q6HRS PRN PO FEVER; Start 10/24/16 at 17:15 Ondansetron HCl (Zofran) 4 mg PRN Q6HRS PRN IV NAUSEA/VOMITING; Start 10/24/16 at 17:15 Morphine Sulfate 2 mg PRN Q2HR PRN IV PAIN; Start 10/24/16 at 17:15 Tramadol HCl (Ultram) 50 mg PRN Q6HRS PRN PO PAIN; Start 10/24/16 at 17:15 Hydralazine HCl (Apresoline) 10 mg PRN Q4HRS PRN IVP ELEVATED BP, SEE COMMENTS ; Start 10/24/16 at 17:15 Docusate Sodium (Colace) 100 mg PRN DAILY PRN PO CONSTIPATION; Start 10/24/16 at 17:15 Hydromorphone HCl (Dilaudid) 2 mg PRN Q4HRS PRN IV PAIN Last administered on 13:07; Start 10/24/16 at 17:15 Oxycodone/ Acetaminophen (Percocet 10/325) 1 tab PRN Q4HRS PRN PO PAIN Last administered on 10/25/16 02:37; Start 10/24/16 at 17:15 Enoxaparin Sodium (Lovenox 40mg Syringe) 40 mg Q24H SQ Last administered on 19:01; Start 10/24/16 at 18:00 Sumatriptan Succinate (Imitrex) 50 mg PRN Q2HR PRN PO MIGRAINE HEADACHE Last administered on 10/25/16 00:20; Start 10/24/16 at 17:30; Stop 10/25/16 at 08:46 ; Status DC Clonazepam (KlonoPIN) 1 mg PRN TID PRN PO ANXIETY Last administered on 13:06; Start 10/24/16 at 17:30 Diphenhydramine HCl (Benadryl) 50 mg PRN Q6HRS PRN PO HEADACHE Last administered on 10/25/16 00:20; Start 10/24/16 at 17:30 Acetaminophen/ Hydrocodone Bitart (Lortab 5/325) 1 tab PRN Q4HRS PRN PO PAIN; Start 10/24/16 at 17:30 Metoprolol Tartrate (Lopressor) 25 mg QHS PO Last administered on 10/24/16 21: 11; Start 10/24/16 at 21:00 Tizanidine HCl (Zanaflex) 4 mg PRN QID PRN PO MUSCLE SPASMS; Start 10/24/16 at 17:30 Non-Formulary Medication 1 ml PRN BID PRN NS MIGRAINE HEADACHE; Start 10/24/16 at 17:30; Stop 10/25/16 at 08:46; Status DC Dronabinol (Marinol) 5 mg TIDAC PO Last administered on 10/25/16 13:06; Start 10/25/16 at 07:30 Non-Formulary Medication 1 tab DAILY PO ; Start 10/26/16 at 09:00 Ondansetron HCl (Zofran Odt) 8 mg PRN BID PRN PO NAUSEA/VOMITING; Start at 17:45 Quetiapine Fumarate (SEROquel XR) 300 mg QHS PO Last administered on 10/24/16 21:11; Start 10/24/16 at 21:00 Ketorolac Tromethamine (Toradol) 15 mg PRN Q6HRS PRN IV PAIN Last administered on 10/25/16 02:37; Start 10/24/16 at 17:30; Stop 10/25/16 at 08:46; Status DC Diphenhydramine HCl (Benadryl) 25 mg PRN Q6HRS PRN IVP ITCHING Last administered on 10/24/16 18:58; Start 10/24/16 at 17:30 Metoclopramide HCl (Reglan) 10 mg PRN Q6HRS PRN IV NAUSEA/VOMITING Last administered on 10/25/16 06:10; Start 10/24/16 at 17:30; Stop 10/25/16 at 08:46 ; Status DC Gadobutrol (Gadavist) 7.5 mmol 1X ONCE IV Last administered on 10/24/16 20:36 ; Start 10/24/16 at 20:15; Stop 10/24/16 at 20:18; Status DC Metoclopramide HCl (Reglan) 10 mg Q8HRS IV Last administered on 10/25/16 10:30 ; Start 10/25/16 at 08:45 Dihydroergotamine Mesylate 1 mg/ Sodium Chloride 51 ml @ 102 mls/hr Q8HRS IV Last administered on 10/25/16 10:30; Start 10/25/16 at 09:00; Stop 10/27/16 at 22:29 Influenza Virus Vaccine Quadrival (Fluarix Quad [id number] Syringe) 0.5 ml ONCE ONCE VAX IM ; Start 10/25/16 at 13:45; Stop 10/25/16 at 13:46; Status DC Active Scripts Active Reported Seroquel (Quetiapine Fumarate) 100 Mg Tablet 150 Mg PO PRN QHS PRN Metoprolol Tartrate 25 Mg Tablet 1 Tab PO QHS Dihydroergotamine Mesylate 1 Ml [place].pump 1 Ml NS PRN BID PRN Hydrocodone-Apap 5-325 (Hydrocodone Bit/Acetaminophen) 1 Each Tablet 1 Tab PO PRN Q4HRS PRN Loestrin (Norethindrone A-E Estradiol) 1 Each Tablet 1 Tab PO DAILY Clonazepam 1 Mg Tablet 1 Mg PO PRN TID PRN Tizanidine Hcl 4 Mg Tablet 4 Mg PO QID PRN Seroquel (Quetiapine Fumarate) 300 Mg Tablet 300 Mg PO HS Marinol (Dronabinol) 5 Mg Capsule 5 Mg PO PRN TID PRN Nifedipine Er (Nifedipine) 30 Mg Tab.er.24 1 Tab PO HS Benadryl (Diphenhydramine Hcl) 25 Mg Capsule 2 Cap PO PRN Q6-8HRS PRN Zofran (Ondansetron Hcl) 8 Mg Tablet 8 Mg PO BID PRN Vitals/I & O Vital Sign - Last 24 Hours 10/24/16 10/24/16 10/24/16 10/24/16 16:38 19:00 19:47 20:00 Temp 97.8 98.4 97.8 98.4 Pulse 78 84 Resp 18 18 18 B/P (MAP) 149/84 (105) 151/82 (105) Pulse Ox 97 97 96 O2 Delivery Room Air Room Air Room Air Room Air 10/24/16 10/24/16 10/25/16 10/25/16 21:11 23:22 03:27 07:15 Temp 98.0 98.2 98.0 98.2 Pulse 84 68 65 64 Resp 20 18 16 B/P (MAP) 151/82 147/78 (101) 131/81 (98) 140/68 (92) Pulse Ox 97 95 97 O2 Delivery Room Air Room Air Room Air 10/25/16 10/25/16 10/25/16 10/25/16 07:45 11:20 13:07 13:44 Temp 98.3 98.3 Pulse 62 Resp 18 B/P (MAP) 115/59 (77) Pulse Ox 95 95 95 O2 Delivery Room Air Room Air Room Air Room Air Intake and Output 10/25/16 10/25/16 10/26/16 15:00 23:00 07:00 Intake Total 480 ml Balance 480 ml GERRI ANAYA MD Oct 25, 2016 15:08
[2016-10-25] MEDS: ENOXAPARIN 40 MG/0.4 ML SYRINGE. SQ SCH (18:00)
[2016-10-25] MEDS: QUEtiapine 300 MG TAB.ER.24H. PO SCH (22:20)
[2016-10-25] MEDS: HYDROcodone/APAP 5/325MG 1 TAB TABLET PO PRN (22:20)
[2016-10-25] MEDS: METOPROLOL TART IMMED RELEASE 25 MG TABLET. PO SCH (22:22)
[2016-10-25] MEDS: QUEtiapine 100 MG TABLET. PO PRN (23:35)
[2016-10-26] MEDS: clonazePAM 1 MG TABLET PO PRN ×2 (04:46→12:13)
[2016-10-26] MEDS: oxyCODONE/APAP 10/325 1 TAB TABLET PO PRN (04:46)
[2016-10-26] MEDS: METOCLOPRAMIDE HCL 10 MG/2 ML VIAL. IV SCH ×3 (06:00→21:12)
[2016-10-26] MEDS: DIHYDROERGOTAMINE 1 MG in IV NORMAL SALINE 50ML 50 ML IV SCH ×3 (06:00→21:13)
[2016-10-26] MEDS ORDERED: NON FORMULARY ITEM PO PRN (07:00)
[2016-10-26 07:15] VITALS: BP 122/76
[2016-10-26] MEDS: HYDROcodone/APAP 5/325MG 1 TAB TABLET PO PRN (08:03)
[2016-10-26] MEDS: DRONABINOL 2.5 MG CAPSULE. PO SCH ×3 (08:04→17:41)
[2016-10-26] MEDS: LOESTRIN FE PO SCH (08:04)
[2016-10-26] MEDS ORDERED: LIDOCAINE 1% / SOD BICARB 8.4% 20 ML VIAL. IJ ONE ×2 (09:08→09:15)
[2016-10-26 11:13] VITALS: BP 125/70
--- NOTE | 2016-10-26 12:02 | RAD ---
Procedure: Upper extremity PICC line placement Clinical Indication: 36-year-old requiring central venous access Sedation: Local anesthesia only was provided Antibiotics: None Fluoro Time: 0.1 minutes. Images: 1 Contrast: None Sterility: All elements of maximal sterile barrier technique including the use of a cap, mask, sterile gown, sterile gloves, large sterile sheet, appropriate hand hygiene, and 2% chlorhexidine for cutaneous antisepsis (or acceptable alternative antiseptic per current guidelines) were followed for this procedure. Consent: The procedure was explained in its entirety to the patient or the patients designated metals sales representative by a member of the treatment team, including a discussion of the risks, benefits and commonly accepted alternatives to the procedure, as well as the expected consequences of no therapy whatsoever. Discussion of the risks included, but was not limited to, those that are most frequent and those that are rare but possibly severe or life-threatening, as well as the possibility of unforeseen complications. Technique and Findings: Following informed consent, the patient was prepped and draped in the usual sterile fashion. Ultrasound interrogation of the right arm revealed patency and compressibility of the right brachial vein. A hard copy ultrasound image was recorded. 1% Lidocaine was used to achieve local anesthesia and a 21-gauge micropuncture needle was used to gain access to the targeted vein. The needle was exchanged over wire for a 5 [place] peel-away sheath which was used to deploy a PICC line under fluoroscopic guidance such that the distal tip resided at the cavoatrial junction. The catheter flushed and aspirated with ease and was sutured to the skin. Complications: No immediate Impression: 1. Ultrasound guided PICC line placement as described.
[2016-10-26] MEDS: HYDROmorphone 2 MG/ML VIAL IV PRN (12:14)
[2016-10-26 15:09] VITALS: BP 153/81
--- NOTE | 2016-10-26 15:14 | PDOC ---
PROGRESS NOTES Assessment Intractable migraine headache, status migrainosus Plan She has had only one dose of DHE due to poor IV access I usually give IV steroids with the DHE but the patient is allergic to Decadron. I asked the patient to avoid the narcotics as they can interfere with the DHE effect. Patient does not need any additional testing. Subjective No change in headache Objective Vital Signs Date Time Temp Pulse Resp B/P (MAP) Pulse Ox O2 Delivery O2 Flow Rate FiO2 10/26/16 15:09 98.6 68 18 153/81 (105) 98 Room Air 98.6 Intake and Output 10/27/16 07:00 Intake Total 480 ml Balance 480 ml Intake Oral 480 ml PHYSICAL EXAM Still has severe headache, appears in distress, has eye shades on Alert. Oriented to time, place and person. PERRL. EOMI. CN: no focal findings. Muscle tone: normal. Muscle strength: 5/5 DTR: 2+ Plantar reflex: Flexor Gait: not examined in bed. Sensory exam: no abnormal findings. No cerebellar signs elicited. Review of Relevant I have reviewed the following items sadaf (where applicable) has been applied. Labs Laboratory Tests Test 10/25/16 05:30 10/25/16 05:40 Sodium Level 140 mmol/L (136-145) Potassium Level 3.9 mmol/L (3.5-5.1) Chloride Level 105 mmol/L (98-107) Carbon Dioxide Level 24 mmol/L (21-32) Anion Gap 11 (6-14) Blood Urea Nitrogen 21 mg/dL (7-20) Creatinine 0.8 mg/dL (0.6-1.0) Estimated GFR (Cockcroft-Gault) 80.7 Glucose Level 94 mg/dL (70-99) Calcium Level 8.8 mg/dL (8.5-10.1) White Blood Count 9.6 x10^3/uL (4.0-11.0) Red Blood Count 4.39 x10^6/uL (3.50-5.40) Hemoglobin 13.2 g/dL (12.0-15.5) Hematocrit 37.0 % (36.0-47.0) Mean Corpuscular Volume 84 fL (79-100) Mean Corpuscular Hemoglobin 30 pg (25-35) Mean Corpuscular Hemoglobin Concent 36 g/dL (31-37) Red Cell Distribution Width 13.0 % (11.5-14.5) Platelet Count 248 x10^3/uL (140-400) Neutrophils (%) (Auto) 55 % (31-73) Lymphocytes (%) (Auto) 34 % (24-48) Monocytes (%) (Auto) 9 % (0-9) Eosinophils (%) (Auto) 2 % (0-3) Basophils (%) (Auto) 0 % (0-3) Neutrophils # (Auto) 5.2 x10^3uL (1.8-7.7) Lymphocytes # (Auto) 3.3 x10^3/uL (1.0-4.8) Monocytes # (Auto) 0.9 x10^3/uL (0.0-1.1) Eosinophils # (Auto) 0.1 x10^3/uL (0.0-0.7) Basophils # (Auto) 0.0 x10^3/uL (0.0-0.2) Medications Current Medications Acetaminophen (Tylenol) 650 mg PRN Q6HRS PRN PO FEVER; Start 10/24/16 at 17:15 Ondansetron HCl (Zofran) 4 mg PRN Q6HRS PRN IV NAUSEA/VOMITING; Start 10/24/16 at 17:15 Morphine Sulfate 2 mg PRN Q2HR PRN IV PAIN; Start 10/24/16 at 17:15 Tramadol HCl (Ultram) 50 mg PRN Q6HRS PRN PO PAIN; Start 10/24/16 at 17:15 Hydralazine HCl (Apresoline) 10 mg PRN Q4HRS PRN IVP ELEVATED BP, SEE COMMENTS ; Start 10/24/16 at 17:15 Docusate Sodium (Colace) 100 mg PRN DAILY PRN PO CONSTIPATION Last administered on 10/26/16 04:46; Start 10/24/16 at 17:15 Hydromorphone HCl (Dilaudid) 2 mg PRN Q4HRS PRN IV PAIN Last administered on 12:14; Start 10/24/16 at 17:15 Oxycodone/ Acetaminophen (Percocet 10/325) 1 tab PRN Q4HRS PRN PO PAIN Last administered on 10/26/16 04:46; Start 10/24/16 at 17:15 Enoxaparin Sodium (Lovenox 40mg Syringe) 40 mg Q24H SQ Last administered on 18:00; Start 10/24/16 at 18:00 Sumatriptan Succinate (Imitrex) 50 mg PRN Q2HR PRN PO MIGRAINE HEADACHE Last administered on 10/25/16 00:20; Start 10/24/16 at 17:30; Stop 10/25/16 at 08:46 ; Status DC Clonazepam (KlonoPIN) 1 mg PRN TID PRN PO ANXIETY Last administered on 12:13; Start 10/24/16 at 17:30 Diphenhydramine HCl (Benadryl) 50 mg PRN Q6HRS PRN PO HEADACHE Last administered on 10/25/16 00:20; Start 10/24/16 at 17:30 Acetaminophen/ Hydrocodone Bitart (Lortab 5/325) 1 tab PRN Q4HRS PRN PO PAIN Last administered on 10/26/16 08:03; Start 10/24/16 at 17:30 Metoprolol Tartrate (Lopressor) 25 mg QHS PO Last administered on 10/25/16 22: 22; Start 10/24/16 at 21:00 Tizanidine HCl (Zanaflex) 4 mg PRN QID PRN PO MUSCLE SPASMS; Start 10/24/16 at 17:30 Non-Formulary Medication 1 ml PRN BID PRN NS MIGRAINE HEADACHE; Start 10/24/16 at 17:30; Stop 10/25/16 at 08:46; Status DC Dronabinol (Marinol) 5 mg TIDAC PO Last administered on 10/26/16 11:30; Start 10/25/16 at 07:30 Non-Formulary Medication 1 tab DAILY PO Last administered on 10/26/16 08:04; Start 10/26/16 at 09:00 Ondansetron HCl (Zofran Odt) 8 mg PRN BID PRN PO NAUSEA/VOMITING; Start at 17:45 Quetiapine Fumarate (SEROquel XR) 300 mg QHS PO Last administered on 10/25/16 22:20; Start 10/24/16 at 21:00 Ketorolac Tromethamine (Toradol) 15 mg PRN Q6HRS PRN IV PAIN Last administered on 10/25/16 02:37; Start 10/24/16 at 17:30; Stop 10/25/16 at 08:46; Status DC Diphenhydramine HCl (Benadryl) 25 mg PRN Q6HRS PRN IVP ITCHING Last administered on 10/24/16 18:58; Start 10/24/16 at 17:30 Metoclopramide HCl (Reglan) 10 mg PRN Q6HRS PRN IV NAUSEA/VOMITING Last administered on 10/25/16 06:10; Start 10/24/16 at 17:30; Stop 10/25/16 at 08:46 ; Status DC Gadobutrol (Gadavist) 7.5 mmol 1X ONCE IV Last administered on 10/24/16 20:36 ; Start 10/24/16 at 20:15; Stop 10/24/16 at 20:18; Status DC Metoclopramide HCl (Reglan) 10 mg Q8HRS IV Last administered on 10/26/16 14:15 ; Start 10/25/16 at 08:45 Dihydroergotamine Mesylate 1 mg/ Sodium Chloride 51 ml @ 102 mls/hr Q8HRS IV Last administered on 10/26/16 14:15; Start 10/25/16 at 09:00; Stop 10/27/16 at 22:29 Influenza Virus Vaccine Quadrival (Fluarix Quad [id number] Syringe) 0.5 ml ONCE ONCE VAX IM Last administered on 10/25/16 13:45; Start 10/25/16 at 13:45; Stop 10/25/16 at 13:46; Status DC Quetiapine Fumarate (SEROquel) 150 mg PRN QHS PRN PO ANXIETY Last administered on 10/25/16 23:35; Start 10/25/16 at 22:15 Non-Formulary Medication 1 ea PRN DAILY PRN PO SEE PACKAGE DIRECTIONS; Start at 07:00; Stop 10/27/16 at 13:00 Lidocaine/Sodium Bicarbonate (Buffered Lidocaine 1%) 20 ml STK-MED ONCE IJ ; Start 10/26/16 at 09:08; Stop 10/26/16 at 09:09; Status DC Heparin Sodium/ Sodium Chloride 500 ml @ As Directed STK-MED ONCE .ROUTE ; Start 10/26/16 at 09:08; Stop 10/26/16 at 09:09; Status DC Heparin Sodium/ Sodium Chloride 1,000 unit 1X ONCE IART Last administered on 09:59; Start 10/26/16 at 09:15; Stop 10/26/16 at 09:16; Status DC Lidocaine/Sodium Bicarbonate (Buffered Lidocaine 1%) 20 ml 1X ONCE IJ Last administered on 10/26/16 09:15; Start 10/26/16 at 09:15; Stop 10/26/16 at 09:16 ; Status DC Active Scripts Active Reported Seroquel (Quetiapine Fumarate) 100 Mg Tablet 150 Mg PO PRN QHS PRN Metoprolol Tartrate 25 Mg Tablet 1 Tab PO QHS Dihydroergotamine Mesylate 1 Ml [place].pump 1 Ml NS PRN BID PRN Hydrocodone-Apap 5-325 (Hydrocodone Bit/Acetaminophen) 1 Each Tablet 1 Tab PO PRN Q4HRS PRN Loestrin (Norethindrone A-E Estradiol) 1 Each Tablet 1 Tab PO DAILY Clonazepam 1 Mg Tablet 1 Mg PO PRN TID PRN Tizanidine Hcl 4 Mg Tablet 4 Mg PO QID PRN Seroquel (Quetiapine Fumarate) 300 Mg Tablet 300 Mg PO HS Marinol (Dronabinol) 5 Mg Capsule 5 Mg PO PRN TID PRN Nifedipine Er (Nifedipine) 30 Mg Tab.er.24 1 Tab PO HS Benadryl (Diphenhydramine Hcl) 25 Mg Capsule 2 Cap PO PRN Q6-8HRS PRN Zofran (Ondansetron Hcl) 8 Mg Tablet 8 Mg PO BID PRN Vitals/I & O Vital Sign - Last 24 Hours 10/25/16 10/25/16 10/25/16 10/25/16 18:22 19:20 20:00 22:22 Temp 98.5 98.5 Pulse 75 80 Resp 20 B/P (MAP) 153/88 (109) 153/92 Pulse Ox 96 97 O2 Delivery Room Air Room Air Room Air 10/25/16 10/26/16 10/26/16 10/26/16 23:04 03:18 07:15 08:03 Temp 97.9 98.5 97.9 98.5 Pulse 80 80 Resp 18 18 B/P (MAP) 153/92 (112) 122/76 (91) Pulse Ox 96 96 96 O2 Delivery Room Air Room Air Room Air Room Air 10/26/16 10/26/16 10/26/16 10/26/16 11:13 12:14 12:18 14:15 Temp 98.0 98.0 Pulse 81 Resp 16 B/P (MAP) 125/70 (88) Pulse Ox 96 96 96 96 O2 Delivery Room Air Room Air Room Air Room Air 10/26/16 15:09 Temp 98.6 98.6 Pulse 68 Resp 18 B/P (MAP) 153/81 (105) Pulse Ox 98 O2 Delivery Room Air Intake and Output 10/26/16 10/26/16 10/27/16 15:00 23:00 07:00 Intake Total 480 ml Balance 480 ml AMIRA [email or web address] MD Oct 26, 2016 15:14
[2016-10-26] MEDS: ENOXAPARIN 40 MG/0.4 ML SYRINGE. SQ SCH (17:41)
[2016-10-26 19:49] VITALS: BP 139/81
--- NOTE | 2016-10-26 21:03 | PDOC ---
PROGRESS NOTES Chief Complaint Chief Complaint Intractable headache 2/2 migraine flare Chronic migraine headache w. acute flate, HTN OA obese, BMI 33 coagulopathy NOS History of Present Illness History of Present Illness neuro consult fllowing, DHE infusion ongoing she complains of severe pain, but looks a little improved, can smile, is walkign to the bathroom, has slept some She has marked right arm pain at PICC line, on lovenox, she reports some coagulopathy, NOS, she could not recall if protein c or s def. she was sure it was not Factor V consult Heme, check US UE at PICC sight, swollen and painful cont DHE, limit narcotics per Neuro recs Vitals Vitals Vital Signs Date Time Temp Pulse Resp B/P (MAP) Pulse Ox O2 Delivery O2 Flow Rate FiO2 10/26/16 20:00 Room Air 10/26/16 19:49 98.5 94 18 139/81 (100) 98 98.5 Physical Exam General: Alert, Cooperative, mild distress (pain) Heart: Regular rate Lungs: Clear, Other Extremities: No clubbing, No cyanosis Review of Systems Review of Systems headache, nausea insomnia, Comment Review of Relevant I have reviewed the following items sadaf (where applicable) has been applied. Labs Laboratory Tests Test 10/25/16 05:30 10/25/16 05:40 Sodium Level 140 mmol/L (136-145) Potassium Level 3.9 mmol/L (3.5-5.1) Chloride Level 105 mmol/L (98-107) Carbon Dioxide Level 24 mmol/L (21-32) Anion Gap 11 (6-14) Blood Urea Nitrogen 21 mg/dL (7-20) Creatinine 0.8 mg/dL (0.6-1.0) Estimated GFR (Cockcroft-Gault) 80.7 Glucose Level 94 mg/dL (70-99) Calcium Level 8.8 mg/dL (8.5-10.1) White Blood Count 9.6 x10^3/uL (4.0-11.0) Red Blood Count 4.39 x10^6/uL (3.50-5.40) Hemoglobin 13.2 g/dL (12.0-15.5) Hematocrit 37.0 % (36.0-47.0) Mean Corpuscular Volume 84 fL (79-100) Mean Corpuscular Hemoglobin 30 pg (25-35) Mean Corpuscular Hemoglobin Concent 36 g/dL (31-37) Red Cell Distribution Width 13.0 % (11.5-14.5) Platelet Count 248 x10^3/uL (140-400) Neutrophils (%) (Auto) 55 % (31-73) Lymphocytes (%) (Auto) 34 % (24-48) Monocytes (%) (Auto) 9 % (0-9) Eosinophils (%) (Auto) 2 % (0-3) Basophils (%) (Auto) 0 % (0-3) Neutrophils # (Auto) 5.2 x10^3uL (1.8-7.7) Lymphocytes # (Auto) 3.3 x10^3/uL (1.0-4.8) Monocytes # (Auto) 0.9 x10^3/uL (0.0-1.1) Eosinophils # (Auto) 0.1 x10^3/uL (0.0-0.7) Basophils # (Auto) 0.0 x10^3/uL (0.0-0.2) Medications Current Medications Acetaminophen (Tylenol) 650 mg PRN Q6HRS PRN PO FEVER; Start 10/24/16 at 17:15 Ondansetron HCl (Zofran) 4 mg PRN Q6HRS PRN IV NAUSEA/VOMITING; Start 10/24/16 at 17:15 Morphine Sulfate 2 mg PRN Q2HR PRN IV PAIN; Start 10/24/16 at 17:15 Tramadol HCl (Ultram) 50 mg PRN Q6HRS PRN PO PAIN; Start 10/24/16 at 17:15 Hydralazine HCl (Apresoline) 10 mg PRN Q4HRS PRN IVP ELEVATED BP, SEE COMMENTS ; Start 10/24/16 at 17:15 Docusate Sodium (Colace) 100 mg PRN DAILY PRN PO CONSTIPATION Last administered on 10/26/16t 04:46; Start 10/24/16 at 17:15 Hydromorphone HCl (Dilaudid) 2 mg PRN Q4HRS PRN IV PAIN Last administered on t 12:14; Start 10/24/16 at 17:15 Oxycodone/ Acetaminophen (Percocet 10/325) 1 tab PRN Q4HRS PRN PO PAIN Last administered on 10/26/16 04:46; Start 10/24/16 at 17:15 Enoxaparin Sodium (Lovenox 40mg Syringe) 40 mg Q24H SQ Last administered on 17:41; Start 10/24/16 at 18:00 Sumatriptan Succinate (Imitrex) 50 mg PRN Q2HR PRN PO MIGRAINE HEADACHE Last administered on 10/25/16 00:20; Start 10/24/16 at 17:30; Stop 10/25/16 at 08:46 ; Status DC Clonazepam (KlonoPIN) 1 mg PRN TID PRN PO ANXIETY Last administered on 12:13; Start 10/24/16 at 17:30 Diphenhydramine HCl (Benadryl) 50 mg PRN Q6HRS PRN PO HEADACHE Last administered on 10/25/16 00:20; Start 10/24/16 at 17:30 Acetaminophen/ Hydrocodone Bitart (Lortab 5/325) 1 tab PRN Q4HRS PRN PO PAIN Last administered on 10/26/16 08:03; Start 10/24/16 at 17:30 Metoprolol Tartrate (Lopressor) 25 mg QHS PO Last administered on 10/25/16 22: 22; Start 10/24/16 at 21:00 Tizanidine HCl (Zanaflex) 4 mg PRN QID PRN PO MUSCLE SPASMS; Start 10/24/16 at 17:30 Non-Formulary Medication 1 ml PRN BID PRN NS MIGRAINE HEADACHE; Start 10/24/16 at 17:30; Stop 10/25/16 at 08:46; Status DC Dronabinol (Marinol) 5 mg TIDAC PO Last administered on 10/26/16 17:41; Start 10/25/16 at 07:30 Non-Formulary Medication 1 tab DAILY PO Last administered on 10/26/16 08:04; Start 10/26/16 at 09:00 Ondansetron HCl (Zofran Odt) 8 mg PRN BID PRN PO NAUSEA/VOMITING; Start at 17:45 Quetiapine Fumarate (SEROquel XR) 300 mg QHS PO Last administered on 10/25/16 22:20; Start 10/24/16 at 21:00 Ketorolac Tromethamine (Toradol) 15 mg PRN Q6HRS PRN IV PAIN Last administered on 10/25/16 02:37; Start 10/24/16 at 17:30; Stop 10/25/16 at 08:46; Status DC Diphenhydramine HCl (Benadryl) 25 mg PRN Q6HRS PRN IVP ITCHING Last administered on 10/24/16 18:58; Start 10/24/16 at 17:30 Metoclopramide HCl (Reglan) 10 mg PRN Q6HRS PRN IV NAUSEA/VOMITING Last administered on 10/25/16 06:10; Start 10/24/16 at 17:30; Stop 10/25/16 at 08:46 ; Status DC Gadobutrol (Gadavist) 7.5 mmol 1X ONCE IV Last administered on 10/24/16 20:36 ; Start 10/24/16 at 20:15; Stop 10/24/16 at 20:18; Status DC Metoclopramide HCl (Reglan) 10 mg Q8HRS IV Last administered on 10/26/16 14:15 ; Start 10/25/16 at 08:45 Dihydroergotamine Mesylate 1 mg/ Sodium Chloride 51 ml @ 102 mls/hr Q8HRS IV Last administered on 10/26/16 14:15; Start 10/25/16 at 09:00; Stop 10/27/16 at 22:29 Influenza Virus Vaccine Quadrival (Fluarix Quad 0237-0155 Syringe) 0.5 ml ONCE ONCE VAX IM Last administered on 10/25/16 13:45; Start 10/25/16 at 13:45; Stop 10/25/16 at 13:46; Status DC Quetiapine Fumarate (SEROquel) 150 mg PRN QHS PRN PO ANXIETY Last administered on 10/25/16 23:35; Start 10/25/16 at 22:15 Non-Formulary Medication 1 ea PRN DAILY PRN PO SEE PACKAGE DIRECTIONS; Start at 07:00; Stop 10/27/16 at 13:00 Lidocaine/Sodium Bicarbonate (Buffered Lidocaine 1%) 20 ml STK-MED ONCE IJ ; Start 10/26/16 at 09:08; Stop 10/26/16 at 09:09; Status DC Heparin Sodium/ Sodium Chloride 500 ml @ As Directed STK-MED ONCE .ROUTE ; Start 10/26/16 at 09:08; Stop 10/26/16 at 09:09; Status DC Heparin Sodium/ Sodium Chloride 1,000 unit 1X ONCE IART Last administered on 09:59; Start 10/26/16 at 09:15; Stop 10/26/16 at 09:16; Status DC Lidocaine/Sodium Bicarbonate (Buffered Lidocaine 1%) 20 ml 1X ONCE IJ Last administered on 10/26/16 09:15; Start 10/26/16 at 09:15; Stop 10/26/16 at 09:16 ; Status DC Active Scripts Active Reported Seroquel (Quetiapine Fumarate) 100 Mg Tablet 150 Mg PO PRN QHS PRN Metoprolol Tartrate 25 Mg Tablet 1 Tab PO QHS Dihydroergotamine Mesylate 1 Ml [place].pump 1 Ml NS PRN BID PRN Hydrocodone-Apap 5-325 (Hydrocodone Bit/Acetaminophen) 1 Each Tablet 1 Tab PO PRN Q4HRS PRN Loestrin (Norethindrone A-E Estradiol) 1 Each Tablet 1 Tab PO DAILY Clonazepam 1 Mg Tablet 1 Mg PO PRN TID PRN Tizanidine Hcl 4 Mg Tablet 4 Mg PO QID PRN Seroquel (Quetiapine Fumarate) 300 Mg Tablet 300 Mg PO HS Marinol (Dronabinol) 5 Mg Capsule 5 Mg PO PRN TID PRN Nifedipine Er (Nifedipine) 30 Mg Tab.er.24 1 Tab PO HS Benadryl (Diphenhydramine Hcl) 25 Mg Capsule 2 Cap PO PRN Q6-8HRS PRN Zofran (Ondansetron Hcl) 8 Mg Tablet 8 Mg PO BID PRN Vitals/I & O Vital Sign - Last 24 Hours 10/25/16 10/25/16 10/26/16 10/26/16 22:22 23:04 03:18 07:15 Temp 97.9 98.5 97.9 98.5 Pulse 80 80 80 Resp 18 18 B/P (MAP) 153/92 153/92 (112) 122/76 (91) Pulse Ox 96 96 O2 Delivery Room Air Room Air Room Air 10/26/16 10/26/16 10/26/16 10/26/16 08:00 08:03 11:13 12:14 Temp 98.0 98.0 Pulse 81 Resp 16 B/P (MAP) 125/70 (88) Pulse Ox 96 96 96 O2 Delivery Room Air Room Air Room Air Room Air 10/26/16 10/26/16 10/26/16 10/26/16 12:18 14:15 15:09 19:49 Temp 98.6 98.5 98.6 98.5 Pulse 68 94 Resp 18 18 B/P (MAP) 153/81 (105) 139/81 (100) Pulse Ox 96 96 98 98 O2 Delivery Room Air Room Air Room Air Room Air 10/26/16 20:00 O2 Delivery Room Air Intake and Output 10/26/16 10/26/16 10/27/16 15:00 23:00 07:00 Intake Total 480 ml 640 ml Output Total 600 ml Balance 480 ml 40 ml GERRI ANAYA MD Oct 26, 2016 21:03
[2016-10-26] MEDS: tiZANidine 4 MG TABLET. PO PRN (21:10)
[2016-10-26] MEDS: QUEtiapine 300 MG TAB.ER.24H. PO SCH (21:11)
[2016-10-26] MEDS: METOPROLOL TART IMMED RELEASE 25 MG TABLET. PO SCH (21:11)
[2016-10-26 23:26] VITALS: BP 131/78
[2016-10-26] MEDS: LIDOCAINE (700MG/PATCH) PATCH. TD SCH (23:43)
[2016-10-27 01:29] VITALS: BP 131/78
[2016-10-27 04:47] LABS: BASO % 1 % (0-3); EOS % 2 % (0-3); HEMATOCRIT 38.1 % (36.0-47.0); HEMOGLOBIN 13.2 g/dL (12.0-15.5); LYMPH # 3.4 x10^3/uL (1.0-4.8); LYMPH % 38 % (24-48); MEAN CORPUSCULAR HEMOGLOBIN 30 pg (25-35); MEAN CORPUSCULAR HGB CONC 35 g/dL (31-37); MEAN CORPUSCULAR VOLUME 85 fL (79-100); MONO % 9 % (0-9); NEUT % 51 % (31-73); PLATELET COUNT 227 x10^3/uL (140-400); RED BLOOD COUNT 4.49 x10^6/uL (3.50-5.40); RED CELL DISTRIBUTION WIDTH 13.1 % (11.5-14.5); WHITE BLOOD COUNT 9.1 x10^3/uL (4.0-11.0)
[2016-10-27] MEDS: DIHYDROERGOTAMINE 1 MG in IV NORMAL SALINE 50ML 50 ML IV SCH ×3 (04:51→21:48)
[2016-10-27] MEDS: METOCLOPRAMIDE HCL 10 MG/2 ML VIAL. IV SCH ×3 (04:51→21:49)
[2016-10-27 05:07] LABS: ALBUMIN 2.9 g/dL (3.4-5.0); ALBUMIN/GLOBULIN RATIO 0.8 (1.0-1.7); CALCIUM 8.4 mg/dL (8.5-10.1); CREATININE 0.7 mg/dL (0.6-1.0); GFR 94.2; POTASSIUM 3.4 mmol/L (3.5-5.1); TOTAL BILIRUBIN 0.1 mg/dL (0.2-1.0); TOTAL PROTEIN 6.4 g/dL (6.4-8.2)
[2016-10-27 07:00] VITALS: BP 138/70
[2016-10-27] MEDS: HYDROmorphone 2 MG/ML VIAL IV PRN ×3 (09:59→18:20)
[2016-10-27] MEDS: DRONABINOL 2.5 MG CAPSULE. PO SCH ×3 (09:59→16:38)
[2016-10-27] MEDS: LIDOCAINE (700MG/PATCH) PATCH. TD SCH (10:00)
[2016-10-27] MEDS: LOESTRIN FE PO SCH (10:11)
--- NOTE | 2016-10-27 10:28 | PDOC ---
PROGRESS NOTES Assessment Intractable migraine headache, status migrainosus Plan Continue DHE through the day Allergic to Decadron. This consisted of paresthesias and she had received Cogentin at the same time she had Decadron. After discussion, the patient is willing to take a single dose of IV Solu-Medrol I asked the patient to avoid the narcotics as they can interfere with the DHE effect. Nonetheless she had to take some Dilaudid. points out that he takes DHE and narcotics for his migraines. Tomorrow, will start narcotic GI PHYSICIAN continuously if she is no better. Patient does not need any additional testing. Subjective No change in headache Objective Vital Signs Date Time Temp Pulse Resp B/P (MAP) Pulse Ox O2 Delivery O2 Flow Rate FiO2 10/27/16 09:59 95 Room Air 10/27/16 07:00 97.6 79 18 138/70 (92) 97.6 PHYSICAL EXAM Still has severe headache, but eye shades off Alert. Oriented to time, place and person. PERRL. EOMI. CN: no focal findings. Muscle tone: normal. Muscle strength: 5/5 DTR: 2+ Plantar reflex: Flexor Gait: not examined in bed. Sensory exam: no abnormal findings. No cerebellar signs elicited. Review of Relevant I have reviewed the following items sadaf (where applicable) has been applied. Labs Laboratory Tests Test 10/27/16 04:25 White Blood Count 9.1 x10^3/uL (4.0-11.0) Red Blood Count 4.49 x10^6/uL (3.50-5.40) Hemoglobin 13.2 g/dL (12.0-15.5) Hematocrit 38.1 % (36.0-47.0) Mean Corpuscular Volume 85 fL (79-100) Mean Corpuscular Hemoglobin 30 pg (25-35) Mean Corpuscular Hemoglobin Concent 35 g/dL (31-37) Red Cell Distribution Width 13.1 % (11.5-14.5) Platelet Count 227 x10^3/uL (140-400) Neutrophils (%) (Auto) 51 % (31-73) Lymphocytes (%) (Auto) 38 % (24-48) Monocytes (%) (Auto) 9 % (0-9) Eosinophils (%) (Auto) 2 % (0-3) Basophils (%) (Auto) 1 % (0-3) Neutrophils # (Auto) 4.6 x10^3uL (1.8-7.7) Lymphocytes # (Auto) 3.4 x10^3/uL (1.0-4.8) Monocytes # (Auto) 0.8 x10^3/uL (0.0-1.1) Eosinophils # (Auto) 0.2 x10^3/uL (0.0-0.7) Basophils # (Auto) 0.0 x10^3/uL (0.0-0.2) Sodium Level 140 mmol/L (136-145) Potassium Level 3.4 mmol/L (3.5-5.1) Chloride Level 105 mmol/L (98-107) Carbon Dioxide Level 25 mmol/L (21-32) Anion Gap 10 (6-14) Blood Urea Nitrogen 14 mg/dL (7-20) Creatinine 0.7 mg/dL (0.6-1.0) Estimated GFR (Cockcroft-Gault) 94.2 BUN/Creatinine Ratio 20 (6-20) Glucose Level 108 mg/dL (70-99) Calcium Level 8.4 mg/dL (8.5-10.1) Total Bilirubin 0.1 mg/dL (0.2-1.0) Aspartate Amino Transf (AST/SGOT) 7 U/L (15-37) Alanine Aminotransferase (ALT/SGPT) 31 U/L (14-59) Alkaline Phosphatase 56 U/L (46-116) Total Protein 6.4 g/dL (6.4-8.2) Albumin 2.9 g/dL (3.4-5.0) Albumin/Globulin Ratio 0.8 (1.0-1.7) Laboratory Tests Test 10/27/16 04:25 White Blood Count 9.1 x10^3/uL (4.0-11.0) Red Blood Count 4.49 x10^6/uL (3.50-5.40) Hemoglobin 13.2 g/dL (12.0-15.5) Hematocrit 38.1 % (36.0-47.0) Mean Corpuscular Volume 85 fL (79-100) Mean Corpuscular Hemoglobin 30 pg (25-35) Mean Corpuscular Hemoglobin Concent 35 g/dL (31-37) Red Cell Distribution Width 13.1 % (11.5-14.5) Platelet Count 227 x10^3/uL (140-400) Neutrophils (%) (Auto) 51 % (31-73) Lymphocytes (%) (Auto) 38 % (24-48) Monocytes (%) (Auto) 9 % (0-9) Eosinophils (%) (Auto) 2 % (0-3) Basophils (%) (Auto) 1 % (0-3) Neutrophils # (Auto) 4.6 x10^3uL (1.8-7.7) Lymphocytes # (Auto) 3.4 x10^3/uL (1.0-4.8) Monocytes # (Auto) 0.8 x10^3/uL (0.0-1.1) Eosinophils # (Auto) 0.2 x10^3/uL (0.0-0.7) Basophils # (Auto) 0.0 x10^3/uL (0.0-0.2) Sodium Level 140 mmol/L (136-145) Potassium Level 3.4 mmol/L (3.5-5.1) Chloride Level 105 mmol/L (98-107) Carbon Dioxide Level 25 mmol/L (21-32) Anion Gap 10 (6-14) Blood Urea Nitrogen 14 mg/dL (7-20) Creatinine 0.7 mg/dL (0.6-1.0) Estimated GFR (Cockcroft-Gault) 94.2 BUN/Creatinine Ratio 20 (6-20) Glucose Level 108 mg/dL (70-99) Calcium Level 8.4 mg/dL (8.5-10.1) Total Bilirubin 0.1 mg/dL (0.2-1.0) Aspartate Amino Transf (AST/SGOT) 7 U/L (15-37) Alanine Aminotransferase (ALT/SGPT) 31 U/L (14-59) Alkaline Phosphatase 56 U/L (46-116) Total Protein 6.4 g/dL (6.4-8.2) Albumin 2.9 g/dL (3.4-5.0) Albumin/Globulin Ratio 0.8 (1.0-1.7) Medications Current Medications Acetaminophen (Tylenol) 650 mg PRN Q6HRS PRN PO FEVER; Start 10/24/16 at 17:15 Ondansetron HCl (Zofran) 4 mg PRN Q6HRS PRN IV NAUSEA/VOMITING; Start 10/24/16 at 17:15 Morphine Sulfate 2 mg PRN Q2HR PRN IV PAIN; Start 10/24/16 at 17:15 Tramadol HCl (Ultram) 50 mg PRN Q6HRS PRN PO PAIN; Start 10/24/16 at 17:15 Hydralazine HCl (Apresoline) 10 mg PRN Q4HRS PRN IVP ELEVATED BP, SEE COMMENTS ; Start 10/24/16 at 17:15 Docusate Sodium (Colace) 100 mg PRN DAILY PRN PO CONSTIPATION Last administered on 10/26/16 04:46; Start 10/24/16 at 17:15 Hydromorphone HCl (Dilaudid) 2 mg PRN Q4HRS PRN IV PAIN Last administered on 09:59; Start 10/24/16 at 17:15 Oxycodone/ Acetaminophen (Percocet 10/325) 1 tab PRN Q4HRS PRN PO PAIN Last administered on 10/26/16 04:46; Start 10/24/16 at 17:15 Enoxaparin Sodium (Lovenox 40mg Syringe) 40 mg Q24H SQ Last administered on 17:41; Start 10/24/16 at 18:00 Sumatriptan Succinate (Imitrex) 50 mg PRN Q2HR PRN PO MIGRAINE HEADACHE Last administered on 10/25/16 00:20; Start 10/24/16 at 17:30; Stop 10/25/16 at 08:46 ; Status DC Clonazepam (KlonoPIN) 1 mg PRN TID PRN PO ANXIETY Last administered on 12:13; Start 10/24/16 at 17:30 Diphenhydramine HCl (Benadryl) 50 mg PRN Q6HRS PRN PO HEADACHE Last administered on 10/25/16 00:20; Start 10/24/16 at 17:30 Acetaminophen/ Hydrocodone Bitart (Lortab 5/325) 1 tab PRN Q4HRS PRN PO PAIN Last administered on 10/26/16 08:03; Start 10/24/16 at 17:30 Metoprolol Tartrate (Lopressor) 25 mg QHS PO Last administered on 10/26/16 21: 11; Start 10/24/16 at 21:00 Tizanidine HCl (Zanaflex) 4 mg PRN QID PRN PO MUSCLE SPASMS Last administered on 10/26/16 21:10; Start 10/24/16 at 17:30 Non-Formulary Medication 1 ml PRN BID PRN NS MIGRAINE HEADACHE; Start 10/24/16 at 17:30; Stop 10/25/16 at 08:46; Status DC Dronabinol (Marinol) 5 mg TIDAC PO Last administered on 10/27/16 09:59; Start 10/25/16 at 07:30 Non-Formulary Medication 1 tab DAILY PO Last administered on 10/27/16 10:11; Start 10/26/16 at 09:00 Ondansetron HCl (Zofran Odt) 8 mg PRN BID PRN PO NAUSEA/VOMITING; Start at 17:45 Quetiapine Fumarate (SEROquel XR) 300 mg QHS PO Last administered on 10/26/16 21:11; Start 10/24/16 at 21:00 Ketorolac Tromethamine (Toradol) 15 mg PRN Q6HRS PRN IV PAIN Last administered on 10/25/16 02:37; Start 10/24/16 at 17:30; Stop 10/25/16 at 08:46; Status DC Diphenhydramine HCl (Benadryl) 25 mg PRN Q6HRS PRN IVP ITCHING Last administered on 10/24/16 18:58; Start 10/24/16 at 17:30 Metoclopramide HCl (Reglan) 10 mg PRN Q6HRS PRN IV NAUSEA/VOMITING Last administered on 10/25/16 06:10; Start 10/24/16 at 17:30; Stop 10/25/16 at 08:46 ; Status DC Gadobutrol (Gadavist) 7.5 mmol 1X ONCE IV Last administered on 10/24/16 20:36 ; Start 10/24/16 at 20:15; Stop 10/24/16 at 20:18; Status DC Metoclopramide HCl (Reglan) 10 mg Q8HRS IV Last administered on 10/27/16 04:51 ; Start 10/25/16 at 08:45 Dihydroergotamine Mesylate 1 mg/ Sodium Chloride 51 ml @ 102 mls/hr Q8HRS IV Last administered on 10/27/16 04:51; Start 10/25/16 at 09:00; Stop 10/27/16 at 22:29 Influenza Virus Vaccine Quadrival (Fluarix Quad [id number] Syringe) 0.5 ml ONCE ONCE VAX IM Last administered on 10/25/16 13:45; Start 10/25/16 at 13:45; Stop 10/25/16 at 13:46; Status DC Quetiapine Fumarate (SEROquel) 150 mg PRN QHS PRN PO ANXIETY Last administered on 10/25/16 23:35; Start 10/25/16 at 22:15 Non-Formulary Medication 1 ea PRN DAILY PRN PO SEE PACKAGE DIRECTIONS; Start at 07:00; Stop 10/27/16 at 13:00 Lidocaine/Sodium Bicarbonate (Buffered Lidocaine 1%) 20 ml STK-MED ONCE IJ ; Start 10/26/16 at 09:08; Stop 10/26/16 at 09:09; Status DC Heparin Sodium/ Sodium Chloride 500 ml @ As Directed STK-MED ONCE .ROUTE ; Start 10/26/16 at 09:08; Stop 10/26/16 at 09:09; Status DC Heparin Sodium/ Sodium Chloride 1,000 unit 1X ONCE IART Last administered on 09:59; Start 10/26/16 at 09:15; Stop 10/26/16 at 09:16; Status DC Lidocaine/Sodium Bicarbonate (Buffered Lidocaine 1%) 20 ml 1X ONCE IJ Last administered on 10/26/16 09:15; Start 10/26/16 at 09:15; Stop 10/26/16 at 09:16 ; Status DC Lidocaine (Lidoderm) 1 patch DAILY TD Last administered on 10/27/16 10:00; Start 10/26/16 at 21:30 Active Scripts Active Reported Seroquel (Quetiapine Fumarate) 100 Mg Tablet 150 Mg PO PRN QHS PRN Metoprolol Tartrate 25 Mg Tablet 1 Tab PO QHS Dihydroergotamine Mesylate 1 Ml [place].pump 1 Ml NS PRN BID PRN Hydrocodone-Apap 5-325 (Hydrocodone Bit/Acetaminophen) 1 Each Tablet 1 Tab PO PRN Q4HRS PRN Loestrin (Norethindrone A-E Estradiol) 1 Each Tablet 1 Tab PO DAILY Clonazepam 1 Mg Tablet 1 Mg PO PRN TID PRN Tizanidine Hcl 4 Mg Tablet 4 Mg PO QID PRN Seroquel (Quetiapine Fumarate) 300 Mg Tablet 300 Mg PO HS Marinol (Dronabinol) 5 Mg Capsule 5 Mg PO PRN TID PRN Nifedipine Er (Nifedipine) 30 Mg Tab.er.24 1 Tab PO HS Benadryl (Diphenhydramine Hcl) 25 Mg Capsule 2 Cap PO PRN Q6-8HRS PRN Zofran (Ondansetron Hcl) 8 Mg Tablet 8 Mg PO BID PRN Vitals/I & O Vital Sign - Last 24 Hours 10/26/16 10/26/16 10/26/16 10/26/16 11:13 12:14 12:18 14:15 Temp 98.0 98.0 Pulse 81 Resp 16 B/P (MAP) 125/70 (88) Pulse Ox 96 96 96 96 O2 Delivery Room Air Room Air Room Air Room Air 10/26/16 10/26/16 10/26/16 10/26/16 15:09 19:49 20:00 21:11 Temp 98.6 98.5 98.6 98.5 Pulse 68 94 94 Resp 18 18 B/P (MAP) 153/81 (105) 139/81 (100) 139/81 Pulse Ox 98 98 O2 Delivery Room Air Room Air Room Air 10/26/16 10/27/16 10/27/16 10/27/16 23:26 02:50 07:00 09:59 Temp 98.3 97.6 98.3 97.6 Pulse 86 79 Resp 18 16 18 B/P (MAP) 131/78 (95) 138/70 (92) Pulse Ox 98 95 95 O2 Delivery Room Air Room Air Room Air AMIRA SANTACRUZ MD Oct 27, 2016 10:27
[2016-10-27 11:00] VITALS: BP 120/79
--- NOTE | 2016-10-27 11:38 | RAD ---
Right upper extremity venous duplex ultrasound study without comparison for right upper extremity pain status post PICC line placement, unable to abduct arm, very tender. Technique an findings: Real-time grayscale and color spectral Doppler evaluation of the veins of the right upper extremity is performed. The right internal jugular vein is patent and compressible, with normal respiratory phasicity. The subclavian vein, axillary vein, paired brachial veins, and basilic vein are all patent and demonstrate normal compressibility. There is flow augmentation within the brachial, axillary, and subclavian veins. The cephalic vein is diminutive and poorly seen. The ulnar and radial veins are patent. There is a PICC line which enters the high basilic vein very near its confluence with the brachial vein. There is no evidence of deep or superficial vein thrombosis of the right upper extremity. Impression: 1. No evidence of upper extremity deep or superficial venous thrombosis.
[2016-10-27] MEDS ORDERED: methylPREDNISolone SOD SUCC PF 125 MG/2 ML VIAL. IV ONE (12:00)
--- NOTE | 2016-10-27 12:45 | PDOC ---
Provider Note Provider Note Hem/Onc consult 1. Hypercoag state per pt. 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 Hypercoag labs ordered See dictation JOSE ALBERTO HERNANDEZ MD Oct 27, 2016 12:45
--- NOTE | 2016-10-27 13:28 | PDOC ---
PROGRESS NOTES Chief Complaint Chief Complaint Intractable headache 2/2 migraine flare - status migranosis Chronic migraine headache w. acute flare, HTN OA obese, BMI 33 coagulopathy NOS History of Present Illness History of Present Illness minimal improved, still marked pain DHE infusion ongoing she complains of severe pain, but looks a little improved, has slept some less swollen at PICC line, on lovenox, heme consulted for reported coagulopathy, NOS, Vitals Vitals Vital Signs Date Time Temp Pulse Resp B/P (MAP) Pulse Ox O2 Delivery O2 Flow Rate FiO2 10/27/16 11:00 97.4 80 18 120/79 (93) 95 Room Air 97.4 Physical Exam General: Alert, Cooperative, mild distress (pain) Heart: Regular rate Lungs: Clear, Other Extremities: No clubbing, No cyanosis Labs LABS Laboratory Tests Test 10/27/16 04:25 White Blood Count 9.1 x10^3/uL (4.0-11.0) Red Blood Count 4.49 x10^6/uL (3.50-5.40) Hemoglobin 13.2 g/dL (12.0-15.5) Hematocrit 38.1 % (36.0-47.0) Mean Corpuscular Volume 85 fL (79-100) Mean Corpuscular Hemoglobin 30 pg (25-35) Mean Corpuscular Hemoglobin Concent 35 g/dL (31-37) Red Cell Distribution Width 13.1 % (11.5-14.5) Platelet Count 227 x10^3/uL (140-400) Neutrophils (%) (Auto) 51 % (31-73) Lymphocytes (%) (Auto) 38 % (24-48) Monocytes (%) (Auto) 9 % (0-9) Eosinophils (%) (Auto) 2 % (0-3) Basophils (%) (Auto) 1 % (0-3) Neutrophils # (Auto) 4.6 x10^3uL (1.8-7.7) Lymphocytes # (Auto) 3.4 x10^3/uL (1.0-4.8) Monocytes # (Auto) 0.8 x10^3/uL (0.0-1.1) Eosinophils # (Auto) 0.2 x10^3/uL (0.0-0.7) Basophils # (Auto) 0.0 x10^3/uL (0.0-0.2) Sodium Level 140 mmol/L (136-145) Potassium Level 3.4 mmol/L (3.5-5.1) Chloride Level 105 mmol/L (98-107) Carbon Dioxide Level 25 mmol/L (21-32) Anion Gap 10 (6-14) Blood Urea Nitrogen 14 mg/dL (7-20) Creatinine 0.7 mg/dL (0.6-1.0) Estimated GFR (Cockcroft-Gault) 94.2 BUN/Creatinine Ratio 20 (6-20) Glucose Level 108 mg/dL (70-99) Calcium Level 8.4 mg/dL (8.5-10.1) Total Bilirubin 0.1 mg/dL (0.2-1.0) Aspartate Amino Transf (AST/SGOT) 7 U/L (15-37) Alanine Aminotransferase (ALT/SGPT) 31 U/L (14-59) Alkaline Phosphatase 56 U/L (46-116) Total Protein 6.4 g/dL (6.4-8.2) Albumin 2.9 g/dL (3.4-5.0) Albumin/Globulin Ratio 0.8 (1.0-1.7) Review of Systems Review of Systems GREY, nausea parathesia to right ear, poss aura Comment Review of Relevant I have reviewed the following items sadaf (where applicable) has been applied. Labs Laboratory Tests Test 10/27/16 04:25 White Blood Count 9.1 x10^3/uL (4.0-11.0) Red Blood Count 4.49 x10^6/uL (3.50-5.40) Hemoglobin 13.2 g/dL (12.0-15.5) Hematocrit 38.1 % (36.0-47.0) Mean Corpuscular Volume 85 fL (79-100) Mean Corpuscular Hemoglobin 30 pg (25-35) Mean Corpuscular Hemoglobin Concent 35 g/dL (31-37) Red Cell Distribution Width 13.1 % (11.5-14.5) Platelet Count 227 x10^3/uL (140-400) Neutrophils (%) (Auto) 51 % (31-73) Lymphocytes (%) (Auto) 38 % (24-48) Monocytes (%) (Auto) 9 % (0-9) Eosinophils (%) (Auto) 2 % (0-3) Basophils (%) (Auto) 1 % (0-3) Neutrophils # (Auto) 4.6 x10^3uL (1.8-7.7) Lymphocytes # (Auto) 3.4 x10^3/uL (1.0-4.8) Monocytes # (Auto) 0.8 x10^3/uL (0.0-1.1) Eosinophils # (Auto) 0.2 x10^3/uL (0.0-0.7) Basophils # (Auto) 0.0 x10^3/uL (0.0-0.2) Sodium Level 140 mmol/L (136-145) Potassium Level 3.4 mmol/L (3.5-5.1) Chloride Level 105 mmol/L (98-107) Carbon Dioxide Level 25 mmol/L (21-32) Anion Gap 10 (6-14) Blood Urea Nitrogen 14 mg/dL (7-20) Creatinine 0.7 mg/dL (0.6-1.0) Estimated GFR (Cockcroft-Gault) 94.2 BUN/Creatinine Ratio 20 (6-20) Glucose Level 108 mg/dL (70-99) Calcium Level 8.4 mg/dL (8.5-10.1) Total Bilirubin 0.1 mg/dL (0.2-1.0) Aspartate Amino Transf (AST/SGOT) 7 U/L (15-37) Alanine Aminotransferase (ALT/SGPT) 31 U/L (14-59) Alkaline Phosphatase 56 U/L (46-116) Total Protein 6.4 g/dL (6.4-8.2) Albumin 2.9 g/dL (3.4-5.0) Albumin/Globulin Ratio 0.8 (1.0-1.7) Laboratory Tests Test 10/27/16 04:25 White Blood Count 9.1 x10^3/uL (4.0-11.0) Red Blood Count 4.49 x10^6/uL (3.50-5.40) Hemoglobin 13.2 g/dL (12.0-15.5) Hematocrit 38.1 % (36.0-47.0) Mean Corpuscular Volume 85 fL (79-100) Mean Corpuscular Hemoglobin 30 pg (25-35) Mean Corpuscular Hemoglobin Concent 35 g/dL (31-37) Red Cell Distribution Width 13.1 % (11.5-14.5) Platelet Count 227 x10^3/uL (140-400) Neutrophils (%) (Auto) 51 % (31-73) Lymphocytes (%) (Auto) 38 % (24-48) Monocytes (%) (Auto) 9 % (0-9) Eosinophils (%) (Auto) 2 % (0-3) Basophils (%) (Auto) 1 % (0-3) Neutrophils # (Auto) 4.6 x10^3uL (1.8-7.7) Lymphocytes # (Auto) 3.4 x10^3/uL (1.0-4.8) Monocytes # (Auto) 0.8 x10^3/uL (0.0-1.1) Eosinophils # (Auto) 0.2 x10^3/uL (0.0-0.7) Basophils # (Auto) 0.0 x10^3/uL (0.0-0.2) Sodium Level 140 mmol/L (136-145) Potassium Level 3.4 mmol/L (3.5-5.1) Chloride Level 105 mmol/L (98-107) Carbon Dioxide Level 25 mmol/L (21-32) Anion Gap 10 (6-14) Blood Urea Nitrogen 14 mg/dL (7-20) Creatinine 0.7 mg/dL (0.6-1.0) Estimated GFR (Cockcroft-Gault) 94.2 BUN/Creatinine Ratio 20 (6-20) Glucose Level 108 mg/dL (70-99) Calcium Level 8.4 mg/dL (8.5-10.1) Total Bilirubin 0.1 mg/dL (0.2-1.0) Aspartate Amino Transf (AST/SGOT) 7 U/L (15-37) Alanine Aminotransferase (ALT/SGPT) 31 U/L (14-59) Alkaline Phosphatase 56 U/L (46-116) Total Protein 6.4 g/dL (6.4-8.2) Albumin 2.9 g/dL (3.4-5.0) Albumin/Globulin Ratio 0.8 (1.0-1.7) Medications Current Medications Acetaminophen (Tylenol) 650 mg PRN Q6HRS PRN PO FEVER; Start 10/24/16 at 17:15 Ondansetron HCl (Zofran) 4 mg PRN Q6HRS PRN IV NAUSEA/VOMITING; Start 10/24/16 at 17:15 Morphine Sulfate 2 mg PRN Q2HR PRN IV PAIN; Start 10/24/16 at 17:15 Tramadol HCl (Ultram) 50 mg PRN Q6HRS PRN PO PAIN; Start 10/24/16 at 17:15 Hydralazine HCl (Apresoline) 10 mg PRN Q4HRS PRN IVP ELEVATED BP, SEE COMMENTS ; Start 10/24/16 at 17:15 Docusate Sodium (Colace) 100 mg PRN DAILY PRN PO CONSTIPATION Last administered on 10/26/16 04:46; Start 10/24/16 at 17:15 Hydromorphone HCl (Dilaudid) 2 mg PRN Q4HRS PRN IV PAIN Last administered on 09:59; Start 10/24/16 at 17:15 Oxycodone/ Acetaminophen (Percocet 10/325) 1 tab PRN Q4HRS PRN PO PAIN Last administered on 10/26/16 04:46; Start 10/24/16 at 17:15 Enoxaparin Sodium (Lovenox 40mg Syringe) 40 mg Q24H SQ Last administered on 17:41; Start 10/24/16 at 18:00 Sumatriptan Succinate (Imitrex) 50 mg PRN Q2HR PRN PO MIGRAINE HEADACHE Last administered on 10/25/16 00:20; Start 10/24/16 at 17:30; Stop 10/25/16 at 08:46 ; Status DC Clonazepam (KlonoPIN) 1 mg PRN TID PRN PO ANXIETY Last administered on 12:13; Start 10/24/16 at 17:30 Diphenhydramine HCl (Benadryl) 50 mg PRN Q6HRS PRN PO HEADACHE Last administered on 10/25/16 00:20; Start 10/24/16 at 17:30 Acetaminophen/ Hydrocodone Bitart (Lortab 5/325) 1 tab PRN Q4HRS PRN PO PAIN Last administered on 10/26/16 08:03; Start 10/24/16 at 17:30 Metoprolol Tartrate (Lopressor) 25 mg QHS PO Last administered on 10/26/16 21: 11; Start 10/24/16 at 21:00 Tizanidine HCl (Zanaflex) 4 mg PRN QID PRN PO MUSCLE SPASMS Last administered on 10/26/16 21:10; Start 10/24/16 at 17:30 Non-Formulary Medication 1 ml PRN BID PRN NS MIGRAINE HEADACHE; Start 10/24/16 at 17:30; Stop 10/25/16 at 08:46; Status DC Dronabinol (Marinol) 5 mg TIDAC PO Last administered on 10/27/16 12:12; Start 10/25/16 at 07:30 Non-Formulary Medication 1 tab DAILY PO Last administered on 10/27/16 10:11; Start 10/26/16 at 09:00 Ondansetron HCl (Zofran Odt) 8 mg PRN BID PRN PO NAUSEA/VOMITING; Start at 17:45 Quetiapine Fumarate (SEROquel XR) 300 mg QHS PO Last administered on 10/26/16 21:11; Start 10/24/16 at 21:00 Ketorolac Tromethamine (Toradol) 15 mg PRN Q6HRS PRN IV PAIN Last administered on 10/25/16 02:37; Start 10/24/16 at 17:30; Stop 10/25/16 at 08:46; Status DC Diphenhydramine HCl (Benadryl) 25 mg PRN Q6HRS PRN IVP ITCHING Last administered on 10/24/16 18:58; Start 10/24/16 at 17:30 Metoclopramide HCl (Reglan) 10 mg PRN Q6HRS PRN IV NAUSEA/VOMITING Last administered on 10/25/16 06:10; Start 10/24/16 at 17:30; Stop 10/25/16 at 08:46 ; Status DC Gadobutrol (Gadavist) 7.5 mmol 1X ONCE IV Last administered on 10/24/16 20:36 ; Start 10/24/16 at 20:15; Stop 10/24/16 at 20:18; Status DC Metoclopramide HCl (Reglan) 10 mg Q8HRS IV Last administered on 10/27/16 04:51 ; Start 10/25/16 at 08:45 Dihydroergotamine Mesylate 1 mg/ Sodium Chloride 51 ml @ 102 mls/hr Q8HRS IV Last administered on 10/27/16 04:51; Start 10/25/16 at 09:00; Stop 10/27/16 at 22:29 Influenza Virus Vaccine Quadrival (Fluarix Quad 8817-3620 Syringe) 0.5 ml ONCE ONCE VAX IM Last administered on 10/25/16 13:45; Start 10/25/16 at 13:45; Stop 10/25/16 at 13:46; Status DC Quetiapine Fumarate (SEROquel) 150 mg PRN QHS PRN PO ANXIETY Last administered on 10/25/16 23:35; Start 10/25/16 at 22:15 Non-Formulary Medication 1 ea PRN DAILY PRN PO SEE PACKAGE DIRECTIONS; Start at 07:00; Stop 10/27/16 at 13:00; Status DC Lidocaine/Sodium Bicarbonate (Buffered Lidocaine 1%) 20 ml STK-MED ONCE IJ ; Start 10/26/16 at 09:08; Stop 10/26/16 at 09:09; Status DC Heparin Sodium/ Sodium Chloride 500 ml @ As Directed STK-MED ONCE .ROUTE ; Start 10/26/16 at 09:08; Stop 10/26/16 at 09:09; Status DC Heparin Sodium/ Sodium Chloride 1,000 unit 1X ONCE IART Last administered on 09:59; Start 10/26/16 at 09:15; Stop 10/26/16 at 09:16; Status DC Lidocaine/Sodium Bicarbonate (Buffered Lidocaine 1%) 20 ml 1X ONCE IJ Last administered on 10/26/16 09:15; Start 10/26/16 at 09:15; Stop 10/26/16 at 09:16 ; Status DC Lidocaine (Lidoderm) 1 patch DAILY TD Last administered on 10/27/16 10:00; Start 10/26/16 at 21:30 Methylprednisolone Sodium Succinate (SOLU-Medrol 125MG VIAL) 250 mg 1X ONCE IV Last administered on 10/27/16 12:13; Start 10/27/16 at 12:00; Stop 10/27/16 at 12:01; Status DC Active Scripts Active Reported Seroquel (Quetiapine Fumarate) 100 Mg Tablet 150 Mg PO PRN QHS PRN Metoprolol Tartrate 25 Mg Tablet 1 Tab PO QHS Dihydroergotamine Mesylate 1 Ml [facility].pump 1 Ml NS PRN BID PRN Hydrocodone-Apap 5-325 (Hydrocodone Bit/Acetaminophen) 1 Each Tablet 1 Tab PO PRN Q4HRS PRN Loestrin (Norethindrone A-E Estradiol) 1 Each Tablet 1 Tab PO DAILY Clonazepam 1 Mg Tablet 1 Mg PO PRN TID PRN Tizanidine Hcl 4 Mg Tablet 4 Mg PO QID PRN Seroquel (Quetiapine Fumarate) 300 Mg Tablet 300 Mg PO HS Marinol (Dronabinol) 5 Mg Capsule 5 Mg PO PRN TID PRN Nifedipine Er (Nifedipine) 30 Mg Tab.er.24 1 Tab PO HS Benadryl (Diphenhydramine Hcl) 25 Mg Capsule 2 Cap PO PRN Q6-8HRS PRN Zofran (Ondansetron Hcl) 8 Mg Tablet 8 Mg PO BID PRN Vitals/I & O Vital Sign - Last 24 Hours 10/26/16 10/26/16 10/26/16 10/26/16 15:09 19:49 20:00 21:11 Temp 98.6 98.5 98.6 98.5 Pulse 68 94 94 Resp 18 18 B/P (MAP) 153/81 (105) 139/81 (100) 139/81 Pulse Ox 98 98 O2 Delivery Room Air Room Air Room Air 10/26/16 10/27/16 10/27/16 10/27/16 23:26 02:50 07:00 08:00 Temp 98.3 97.6 98.3 97.6 Pulse 86 79 Resp 18 16 18 B/P (MAP) 131/78 (95) 138/70 (92) Pulse Ox 98 95 O2 Delivery Room Air Room Air Room Air 10/27/16 10/27/16 10/27/16 09:59 10:29 11:00 Temp 97.4 97.4 Pulse 80 Resp 18 B/P (MAP) 120/79 (93) Pulse Ox 95 95 95 O2 Delivery Room Air Room Air Room Air GERRI ANAYA MD Oct 27, 2016 13:28
[2016-10-27 15:00] VITALS: BP 130/74
--- NOTE | 2016-10-27 16:15 | CONS ---
DATE OF CONSULTATION: 10/27/2016 HEMATOLOGY ONCOLOGY CONSULTATION DATE OF SERVICE: 10/27/2016 REQUESTING PHYSICIAN: Dr. Kyra Oliver. REASON FOR CONSULTATION: History of superficial vein thrombosis and history of abnormal hypercoagulable labs per patient. 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 She mentions that her primary care physician put her on aspirin when she was at the age of 19 because her blood was too thick per patient. She took aspirin for a year and a half and then she quit taking aspirin. Later on, she has noticed that she has a tendency to develop superficial vein thrombosis whenever she has an IV access. She has never had deep vein thrombosis and she has never required anticoagulation. She was admitted to [facility] on 10/24/2016 for migraine headaches. She has had an MRI of the brain on 10/19/2016, which revealed no acute intracranial findings. She reports that she had hypercoagulable state workup in the past through one of her physicians and she was to hold that one of her blood tests was abnormal, but she is not sure what test and she is not sure where it was done, but she would like to get it checked while she is here during this admission. She denies nosebleeds or gum bleeding. No hematemesis, melena, hematochezia, no hemoptysis or hematuria. No loss of weight or loss of appetite. PAST MEDICAL HISTORY: Hypertension, migraine headaches. FAMILY HISTORY: Positive for hypertension. SOCIAL HISTORY: No smoking or alcohol abuse. REVIEW OF SYSTEMS: A 12-point review of system was performed. Pertinent positives are mentioned in the history of present illness. Rest of the system review is negative. PHYSICAL EXAMINATION: GENERAL APPEARANCE: The patient is a 36-year-old female who is in no acute cardiorespiratory distress. VITAL SIGNS: Blood pressure 120/79, temperature 97.4. HEENT: Atraumatic, normocephalic. Eyes: No icterus. NECK: Supple. CHEST: Bilaterally symmetrical. HEART: S1, S2 normal. ABDOMEN: Soft, nontender. CENTRAL NERVOUS SYSTEM: No focal deficits. LYMPHATICS: No lymphadenopathy. SKIN: No rashes. PSYCHOLOGIC: Mood and affect are appropriate. MUSCULOSKELETAL: No joint effusions. LABORATORY DATA: WBC 9.1, hemoglobin 13.2, platelet count 227. Creatinine 0.7. IMPRESSION AND PLAN: 1. Hypercoagulable state per patient's history. She has never had a deep vein thrombosis. However, she does report having had several episodes of superficial vein thrombosis after IV access, particularly in the antecubital fossa. She would like to proceed with hypercoagulable state workup for diagnostic purposes. I have ordered factor V Leiden, prothrombin gene mutation, lupus anticoagulant, anticardiolipin antibodies, protein C, protein S and antithrombin 3. I also mentioned to the patient that if any of the above workup is abnormal, I would still not recommend anticoagulation since there is no evidence of deep vein thrombosis. However, this would be useful for her to take necessary precautions to prevent a thromboembolic event. 2. Migraine headaches. Appreciate Neurology consultation and management. I discussed with Dr. Kyra Oliver. JOSE ALBERTO HERNANDEZ MD DR: SAM/calli JOB#: [id number] / [id number] KEILY
[2016-10-27] MEDS: ENOXAPARIN 40 MG/0.4 ML SYRINGE. SQ SCH (18:21)
[2016-10-27 19:29] VITALS: BP 141/88
[2016-10-27] MEDS: QUEtiapine 300 MG TAB.ER.24H. PO SCH ×2 (21:00→22:09)
[2016-10-27] MEDS: traMADol 50 MG TABLET PO PRN (21:49)
[2016-10-27] MEDS: QUEtiapine 100 MG TABLET. PO PRN ×3 (21:51→23:15)
[2016-10-27] MEDS: METOPROLOL TART IMMED RELEASE 25 MG TABLET. PO SCH (21:53)
[2016-10-27 23:57] VITALS: BP 148/80
[2016-10-28] MEDS: HYDROcodone/APAP 5/325MG 1 TAB TABLET PO PRN (03:46)
[2016-10-28] MEDS: diphenhydrAMINE 50 MG/ML VIAL IVP PRN (03:46)
[2016-10-28] MEDS: METOCLOPRAMIDE HCL 10 MG/2 ML VIAL. IV SCH ×3 (06:00→21:10)
[2016-10-28] MEDS ORDERED: DIHYDROERGOTAMINE 1 MG in IV NORMAL SALINE 50ML 50 ML IV ONE ×2 (06:00→14:00)
[2016-10-28 07:00] VITALS: BP 135/76
[2016-10-28] MEDS: DRONABINOL 2.5 MG CAPSULE. PO SCH ×3 (08:48→17:11)
[2016-10-28] MEDS: oxyCODONE/APAP 10/325 1 TAB TABLET PO PRN ×2 (08:54→22:35)
[2016-10-28] MEDS: LOESTRIN FE PO SCH (08:57)
[2016-10-28] MEDS: LIDOCAINE (700MG/PATCH) PATCH. TD SCH (08:57)
[2016-10-28 11:00] VITALS: BP 111/65
[2016-10-28] MEDS: tiZANidine 4 MG TABLET. PO PRN ×2 (11:36→22:36)
[2016-10-28] MEDS: methylPREDNISolone 4 MG TABLET. PO SCH ×2 (11:36→20:05)
[2016-10-28] MEDS: oxyCODONE ER 10 MG TAB.ER.12H PO SCH ×2 (11:36→20:05)
--- NOTE | 2016-10-28 14:02 | PDOC ---
PROGRESS NOTES Chief Complaint Chief Complaint Intractable headache 2/2 migraine flare - status migranosis Chronic migraine headache w. acute flare, HTN OA obese, BMI 33 coagulopathy NOS History of Present Illness History of Present Illness minimal improved, still marked pain, DHE infusion stopped early this AM, IV solumedrol given last night, cont PO change somemeds, DC ultram as avail, sched Oxycontin, Neuro following GREY now 08/14 has slept some less swollen at PICC line, on lovenox, heme consulted for reported coagulopathy, NOS, Vitals Vitals Vital Signs Date Time Temp Pulse Resp B/P (MAP) Pulse Ox O2 Delivery O2 Flow Rate FiO2 10/28/16 11:36 16 96 Room Air 10/28/16 11:00 97.7 91 111/65 (80) 97.7 Physical Exam General: Alert, Cooperative, mild distress (pain) Heart: Regular rate Lungs: Clear, Other Extremities: No clubbing, No cyanosis Review of Systems Review of Systems GREY nausde insomnia Comment Review of Relevant I have reviewed the following items sadaf (where applicable) has been applied. Labs Laboratory Tests Test 10/27/16 04:25 White Blood Count 9.1 x10^3/uL (4.0-11.0) Red Blood Count 4.49 x10^6/uL (3.50-5.40) Hemoglobin 13.2 g/dL (12.0-15.5) Hematocrit 38.1 % (36.0-47.0) Mean Corpuscular Volume 85 fL (79-100) Mean Corpuscular Hemoglobin 30 pg (25-35) Mean Corpuscular Hemoglobin Concent 35 g/dL (31-37) Red Cell Distribution Width 13.1 % (11.5-14.5) Platelet Count 227 x10^3/uL (140-400) Neutrophils (%) (Auto) 51 % (31-73) Lymphocytes (%) (Auto) 38 % (24-48) Monocytes (%) (Auto) 9 % (0-9) Eosinophils (%) (Auto) 2 % (0-3) Basophils (%) (Auto) 1 % (0-3) Neutrophils # (Auto) 4.6 x10^3uL (1.8-7.7) Lymphocytes # (Auto) 3.4 x10^3/uL (1.0-4.8) Monocytes # (Auto) 0.8 x10^3/uL (0.0-1.1) Eosinophils # (Auto) 0.2 x10^3/uL (0.0-0.7) Basophils # (Auto) 0.0 x10^3/uL (0.0-0.2) Sodium Level 140 mmol/L (136-145) Potassium Level 3.4 mmol/L (3.5-5.1) Chloride Level 105 mmol/L (98-107) Carbon Dioxide Level 25 mmol/L (21-32) Anion Gap 10 (6-14) Blood Urea Nitrogen 14 mg/dL (7-20) Creatinine 0.7 mg/dL (0.6-1.0) Estimated GFR (Cockcroft-Gault) 94.2 BUN/Creatinine Ratio 20 (6-20) Glucose Level 108 mg/dL (70-99) Calcium Level 8.4 mg/dL (8.5-10.1) Total Bilirubin 0.1 mg/dL (0.2-1.0) Aspartate Amino Transf (AST/SGOT) 7 U/L (15-37) Alanine Aminotransferase (ALT/SGPT) 31 U/L (14-59) Alkaline Phosphatase 56 U/L (46-116) Total Protein 6.4 g/dL (6.4-8.2) Albumin 2.9 g/dL (3.4-5.0) Albumin/Globulin Ratio 0.8 (1.0-1.7) Medications Current Medications Acetaminophen (Tylenol) 650 mg PRN Q6HRS PRN PO FEVER; Start 10/24/16 at 17:15 Ondansetron HCl (Zofran) 4 mg PRN Q6HRS PRN IV NAUSEA/VOMITING; Start 10/24/16 at 17:15 Morphine Sulfate 2 mg PRN Q2HR PRN IV PAIN; Start 10/24/16 at 17:15 Tramadol HCl (Ultram) 50 mg PRN Q6HRS PRN PO PAIN Last administered on t 21:49; Start 10/24/16 at 17:15; Stop 10/28/16 at 11:25; Status DC Hydralazine HCl (Apresoline) 10 mg PRN Q4HRS PRN IVP ELEVATED BP, SEE COMMENTS ; Start 10/24/16 at 17:15 Docusate Sodium (Colace) 100 mg PRN DAILY PRN PO CONSTIPATION Last administered on 10/26/16 04:46; Start 10/24/16 at 17:15 Hydromorphone HCl (Dilaudid) 2 mg PRN Q4HRS PRN IV PAIN Last administered on 18:20; Start 10/24/16 at 17:15 Oxycodone/ Acetaminophen (Percocet 10/325) 1 tab PRN Q4HRS PRN PO MODERATE TO SEVERE PAIN Last administered on 10/28/16 08:54; Start 10/24/16 at 17:15 Enoxaparin Sodium (Lovenox 40mg Syringe) 40 mg Q24H SQ Last administered on 18:21; Start 10/24/16 at 18:00 Sumatriptan Succinate (Imitrex) 50 mg PRN Q2HR PRN PO MIGRAINE HEADACHE Last administered on 10/25/16 00:20; Start 10/24/16 at 17:30; Stop 10/25/16 at 08:46 ; Status DC Clonazepam (KlonoPIN) 1 mg PRN TID PRN PO ANXIETY Last administered on 12:13; Start 10/24/16 at 17:30 Diphenhydramine HCl (Benadryl) 50 mg PRN Q6HRS PRN PO HEADACHE Last administered on 10/25/16 00:20; Start 10/24/16 at 17:30 Acetaminophen/ Hydrocodone Bitart (Lortab 5/325) 1 tab PRN Q4HRS PRN PO MILD TO MODERATE PAIN Last administered on 10/28/16 03:46; Start 10/24/16 at 17:30 Metoprolol Tartrate (Lopressor) 25 mg QHS PO Last administered on 10/27/16 21: 53; Start 10/24/16 at 21:00 Tizanidine HCl (Zanaflex) 4 mg PRN QID PRN PO MUSCLE SPASMS Last administered on 10/28/16 11:36; Start 10/24/16 at 17:30 Non-Formulary Medication 1 ml PRN BID PRN NS MIGRAINE HEADACHE; Start 10/24/16 at 17:30; Stop 10/25/16 at 08:46; Status DC Dronabinol (Marinol) 5 mg TIDAC PO Last administered on 10/28/16 11:36; Start 10/25/16 at 07:30 Non-Formulary Medication 1 tab DAILY PO Last administered on 10/28/16 08:57; Start 10/26/16 at 09:00 Ondansetron HCl (Zofran Odt) 8 mg PRN BID PRN PO NAUSEA/VOMITING Last administered on 10/28/16 03:53; Start 10/24/16 at 17:45 Quetiapine Fumarate (SEROquel XR) 300 mg QHS PO Last administered on 10/27/16 22:09; Start 10/24/16 at 21:00 Ketorolac Tromethamine (Toradol) 15 mg PRN Q6HRS PRN IV PAIN Last administered on 10/25/16 02:37; Start 10/24/16 at 17:30; Stop 10/25/16 at 08:46; Status DC Diphenhydramine HCl (Benadryl) 25 mg PRN Q6HRS PRN IVP ITCHING Last administered on 10/28/16 03:46; Start 10/24/16 at 17:30 Metoclopramide HCl (Reglan) 10 mg PRN Q6HRS PRN IV NAUSEA/VOMITING Last administered on 10/25/16 06:10; Start 10/24/16 at 17:30; Stop 10/25/16 at 08:46 ; Status DC Gadobutrol (Gadavist) 7.5 mmol 1X ONCE IV Last administered on 10/24/16 20:36 ; Start 10/24/16 at 20:15; Stop 10/24/16 at 20:18; Status DC Metoclopramide HCl (Reglan) 10 mg Q8HRS IV Last administered on 10/28/16 13:47 ; Start 10/25/16 at 08:45 Dihydroergotamine Mesylate 1 mg/ Sodium Chloride 51 ml @ 102 mls/hr Q8HRS IV Last administered on 10/27/16 21:48; Start 10/25/16 at 09:00; Stop 10/27/16 at 22:29; Status DC Influenza Virus Vaccine Quadrival (Fluarix Quad [id number] Syringe) 0.5 ml ONCE ONCE VAX IM Last administered on 10/25/16 13:45; Start 10/25/16 at 13:45; Stop 10/25/16 at 13:46; Status DC Quetiapine Fumarate (SEROquel) 150 mg PRN QHS PRN PO ANXIETY Last administered on 10/27/16 23:15; Start 10/25/16 at 22:15 Non-Formulary Medication 1 ea PRN DAILY PRN PO SEE PACKAGE DIRECTIONS; Start at 07:00; Stop 10/27/16 at 13:00; Status DC Lidocaine/Sodium Bicarbonate (Buffered Lidocaine 1%) 20 ml STK-MED ONCE IJ ; Start 10/26/16 at 09:08; Stop 10/26/16 at 09:09; Status DC Heparin Sodium/ Sodium Chloride 500 ml @ As Directed STK-MED ONCE .ROUTE ; Start 10/26/16 at 09:08; Stop 10/26/16 at 09:09; Status DC Heparin Sodium/ Sodium Chloride 1,000 unit 1X ONCE IART Last administered on 09:59; Start 10/26/16 at 09:15; Stop 10/26/16 at 09:16; Status DC Lidocaine/Sodium Bicarbonate (Buffered Lidocaine 1%) 20 ml 1X ONCE IJ Last administered on 10/26/16 09:15; Start 10/26/16 at 09:15; Stop 10/26/16 at 09:16 ; Status DC Lidocaine (Lidoderm) 1 patch DAILY TD Last administered on 10/27/16 10:00; Start 10/26/16 at 21:30 Methylprednisolone Sodium Succinate (SOLU-Medrol 125MG VIAL) 250 mg 1X ONCE IV Last administered on 10/27/16 12:13; Start 10/27/16 at 12:00; Stop 10/27/16 at 12:01; Status DC Dihydroergotamine Mesylate 1 mg/ Sodium Chloride 51 ml @ 102 mls/hr ONCE ONCE IV Last administered on 10/28/16 06:01; Start 10/28/16 at 06:00; Stop at 06:29; Status DC Dihydroergotamine Mesylate 1 mg/ Sodium Chloride 51 ml @ 102 mls/hr ONCE ONCE IV Last administered on 10/28/16 13:48; Start 10/28/16 at 14:00; Stop at 14:29 Oxycodone HCl (OxyCONTIN) 20 mg Q12HR PO Last administered on 10/28/16 11:36; Start 10/28/16 at 11:30 Methylprednisolone (Medrol) 4 mg BID PO Last administered on 10/28/16 11:36; Start 10/28/16 at 11:30 Active Scripts Active Reported Seroquel (Quetiapine Fumarate) 100 Mg Tablet 150 Mg PO PRN QHS PRN Metoprolol Tartrate 25 Mg Tablet 1 Tab PO QHS Dihydroergotamine Mesylate 1 Ml [place].pump 1 Ml NS PRN BID PRN Hydrocodone-Apap 5-325 (Hydrocodone Bit/Acetaminophen) 1 Each Tablet 1 Tab PO PRN Q4HRS PRN Loestrin (Norethindrone A-E Estradiol) 1 Each Tablet 1 Tab PO DAILY Clonazepam 1 Mg Tablet 1 Mg PO PRN TID PRN Tizanidine Hcl 4 Mg Tablet 4 Mg PO QID PRN Seroquel (Quetiapine Fumarate) 300 Mg Tablet 300 Mg PO HS Marinol (Dronabinol) 5 Mg Capsule 5 Mg PO PRN TID PRN Nifedipine Er (Nifedipine) 30 Mg Tab.er.24 1 Tab PO HS Benadryl (Diphenhydramine Hcl) 25 Mg Capsule 2 Cap PO PRN Q6-8HRS PRN Zofran (Ondansetron Hcl) 8 Mg Tablet 8 Mg PO BID PRN Vitals/I & O Vital Sign - Last 24 Hours 10/27/16 10/27/16 10/27/16 10/27/16 14:24 15:00 18:20 18:50 Temp 97.4 97.4 Pulse 85 Resp 18 B/P (MAP) 130/74 (92) Pulse Ox 95 96 96 96 O2 Delivery Room Air Room Air Room Air Room Air 10/27/16 10/27/16 10/27/16 10/27/16 19:29 20:00 21:53 23:57 Temp 98.5 98.3 98.5 98.3 Pulse 93 93 87 Resp 18 18 B/P (MAP) 141/88 (105) 141/88 148/80 (102) Pulse Ox 97 93 O2 Delivery Room Air Room Air Room Air 910/28/16 10/28/16 10/28/16 03:22 03:46 07:00 08:00 Temp 97.5 97.5 Pulse 72 Resp 16 18 B/P (MAP) 135/76 (95) Pulse Ox 95 O2 Delivery Room Air Room Air Room Air Room Air 10/28/16 10/28/16 10/28/16 10/28/16 08:54 09:54 11:00 11:36 Temp 97.7 97.7 Pulse 91 Resp 16 16 18 16 B/P (MAP) 111/65 (80) Pulse Ox 96 96 O2 Delivery Room Air Room Air Intake and Output 10/28/16 10/28/16 10/29/16 15:00 23:00 07:00 Intake Total 300 ml Balance 300 ml GERRI ANAYA MD Oct 28, 2016 14:02
--- NOTE | 2016-10-28 14:30 | PDOC ---
PROGRESS NOTES Assessment Intractable migraine headache, status migrainosus, better History of hypercoaguable state Plan One more dose of DHE due Received a single dose of IV Solu-Medrol, hold on repeating Dilaudid and hydrocodone ordered. Hold on narcotic [employer] continuously Hold on MR venogram. Subjective headache 08/14 Objective Vital Signs Date Time Temp Pulse Resp B/P (MAP) Pulse Ox O2 Delivery O2 Flow Rate FiO2 10/28/16 11:36 16 96 Room Air 10/28/16 11:00 97.7 91 111/65 (80) 97.7 Intake and Output 10/29/16 07:00 Intake Total 300 ml Balance 300 ml Intake Oral 300 ml PHYSICAL EXAM Still has severe headache, 08/14 headache now Alert. Oriented to time, place and person. PERRL. EOMI. CN: no focal findings. Muscle tone: normal. Muscle strength: 5/5 DTR: 2+ Plantar reflex: Flexor Gait: not examined in bed. Sensory exam: no abnormal findings. Review of Relevant I have reviewed the following items sadaf (where applicable) has been applied. Labs Laboratory Tests Test 10/27/16 04:25 White Blood Count 9.1 x10^3/uL (4.0-11.0) Red Blood Count 4.49 x10^6/uL (3.50-5.40) Hemoglobin 13.2 g/dL (12.0-15.5) Hematocrit 38.1 % (36.0-47.0) Mean Corpuscular Volume 85 fL (79-100) Mean Corpuscular Hemoglobin 30 pg (25-35) Mean Corpuscular Hemoglobin Concent 35 g/dL (31-37) Red Cell Distribution Width 13.1 % (11.5-14.5) Platelet Count 227 x10^3/uL (140-400) Neutrophils (%) (Auto) 51 % (31-73) Lymphocytes (%) (Auto) 38 % (24-48) Monocytes (%) (Auto) 9 % (0-9) Eosinophils (%) (Auto) 2 % (0-3) Basophils (%) (Auto) 1 % (0-3) Neutrophils # (Auto) 4.6 x10^3uL (1.8-7.7) Lymphocytes # (Auto) 3.4 x10^3/uL (1.0-4.8) Monocytes # (Auto) 0.8 x10^3/uL (0.0-1.1) Eosinophils # (Auto) 0.2 x10^3/uL (0.0-0.7) Basophils # (Auto) 0.0 x10^3/uL (0.0-0.2) Sodium Level 140 mmol/L (136-145) Potassium Level 3.4 mmol/L (3.5-5.1) Chloride Level 105 mmol/L (98-107) Carbon Dioxide Level 25 mmol/L (21-32) Anion Gap 10 (6-14) Blood Urea Nitrogen 14 mg/dL (7-20) Creatinine 0.7 mg/dL (0.6-1.0) Estimated GFR (Cockcroft-Gault) 94.2 BUN/Creatinine Ratio 20 (6-20) Glucose Level 108 mg/dL (70-99) Calcium Level 8.4 mg/dL (8.5-10.1) Total Bilirubin 0.1 mg/dL (0.2-1.0) Aspartate Amino Transf (AST/SGOT) 7 U/L (15-37) Alanine Aminotransferase (ALT/SGPT) 31 U/L (14-59) Alkaline Phosphatase 56 U/L (46-116) Total Protein 6.4 g/dL (6.4-8.2) Albumin 2.9 g/dL (3.4-5.0) Albumin/Globulin Ratio 0.8 (1.0-1.7) Medications Current Medications Acetaminophen (Tylenol) 650 mg PRN Q6HRS PRN PO FEVER; Start 10/24/16 at 17:15 Ondansetron HCl (Zofran) 4 mg PRN Q6HRS PRN IV NAUSEA/VOMITING; Start 10/24/16 at 17:15 Morphine Sulfate 2 mg PRN Q2HR PRN IV PAIN; Start 10/24/16 at 17:15 Tramadol HCl (Ultram) 50 mg PRN Q6HRS PRN PO PAIN Last administered on t 21:49; Start 10/24/16 at 17:15; Stop 10/28/16 at 11:25; Status DC Hydralazine HCl (Apresoline) 10 mg PRN Q4HRS PRN IVP ELEVATED BP, SEE COMMENTS ; Start 10/24/16 at 17:15 Docusate Sodium (Colace) 100 mg PRN DAILY PRN PO CONSTIPATION Last administered on 10/26/16 04:46; Start 10/24/16 at 17:15 Hydromorphone HCl (Dilaudid) 2 mg PRN Q4HRS PRN IV PAIN Last administered on 18:20; Start 10/24/16 at 17:15 Oxycodone/ Acetaminophen (Percocet 10/325) 1 tab PRN Q4HRS PRN PO MODERATE TO SEVERE PAIN Last administered on 10/28/16 08:54; Start 10/24/16 at 17:15 Enoxaparin Sodium (Lovenox 40mg Syringe) 40 mg Q24H SQ Last administered on 18:21; Start 10/24/16 at 18:00 Sumatriptan Succinate (Imitrex) 50 mg PRN Q2HR PRN PO MIGRAINE HEADACHE Last administered on 10/25/16 00:20; Start 10/24/16 at 17:30; Stop 10/25/16 at 08:46 ; Status DC Clonazepam (KlonoPIN) 1 mg PRN TID PRN PO ANXIETY Last administered on 12:13; Start 10/24/16 at 17:30 Diphenhydramine HCl (Benadryl) 50 mg PRN Q6HRS PRN PO HEADACHE Last administered on 10/25/16 00:20; Start 10/24/16 at 17:30 Acetaminophen/ Hydrocodone Bitart (Lortab 5/325) 1 tab PRN Q4HRS PRN PO MILD TO MODERATE PAIN Last administered on 10/28/16 03:46; Start 10/24/16 at 17:30 Metoprolol Tartrate (Lopressor) 25 mg QHS PO Last administered on 10/27/16 21: 53; Start 10/24/16 at 21:00 Tizanidine HCl (Zanaflex) 4 mg PRN QID PRN PO MUSCLE SPASMS Last administered on 10/28/16 11:36; Start 10/24/16 at 17:30 Non-Formulary Medication 1 ml PRN BID PRN NS MIGRAINE HEADACHE; Start 10/24/16 at 17:30; Stop 10/25/16 at 08:46; Status DC Dronabinol (Marinol) 5 mg TIDAC PO Last administered on 10/28/16 11:36; Start 10/25/16 at 07:30 Non-Formulary Medication 1 tab DAILY PO Last administered on 10/28/16 08:57; Start 10/26/16 at 09:00 Ondansetron HCl (Zofran Odt) 8 mg PRN BID PRN PO NAUSEA/VOMITING Last administered on 10/28/16 03:53; Start 10/24/16 at 17:45 Quetiapine Fumarate (SEROquel XR) 300 mg QHS PO Last administered on 10/27/16 22:09; Start 10/24/16 at 21:00 Ketorolac Tromethamine (Toradol) 15 mg PRN Q6HRS PRN IV PAIN Last administered on 10/25/16 02:37; Start 10/24/16 at 17:30; Stop 10/25/16 at 08:46; Status DC Diphenhydramine HCl (Benadryl) 25 mg PRN Q6HRS PRN IVP ITCHING Last administered on 10/28/16 03:46; Start 10/24/16 at 17:30 Metoclopramide HCl (Reglan) 10 mg PRN Q6HRS PRN IV NAUSEA/VOMITING Last administered on 10/25/16 06:10; Start 10/24/16 at 17:30; Stop 10/25/16 at 08:46 ; Status DC Gadobutrol (Gadavist) 7.5 mmol 1X ONCE IV Last administered on 10/24/16 20:36 ; Start 10/24/16 at 20:15; Stop 10/24/16 at 20:18; Status DC Metoclopramide HCl (Reglan) 10 mg Q8HRS IV Last administered on 10/28/16 13:47 ; Start 10/25/16 at 08:45 Dihydroergotamine Mesylate 1 mg/ Sodium Chloride 51 ml @ 102 mls/hr Q8HRS IV Last administered on 10/27/16 21:48; Start 10/25/16 at 09:00; Stop 10/27/16 at 22:29; Status DC Influenza Virus Vaccine Quadrival (Fluarix Quad [id number] Syringe) 0.5 ml ONCE ONCE VAX IM Last administered on 10/25/16 13:45; Start 10/25/16 at 13:45; Stop 10/25/16 at 13:46; Status DC Quetiapine Fumarate (SEROquel) 150 mg PRN QHS PRN PO ANXIETY Last administered on 10/27/16 23:15; Start 10/25/16 at 22:15 Non-Formulary Medication 1 ea PRN DAILY PRN PO SEE PACKAGE DIRECTIONS; Start at 07:00; Stop 10/27/16 at 13:00; Status DC Lidocaine/Sodium Bicarbonate (Buffered Lidocaine 1%) 20 ml STK-MED ONCE IJ ; Start 10/26/16 at 09:08; Stop 10/26/16 at 09:09; Status DC Heparin Sodium/ Sodium Chloride 500 ml @ As Directed STK-MED ONCE .ROUTE ; Start 10/26/16 at 09:08; Stop 10/26/16 at 09:09; Status DC Heparin Sodium/ Sodium Chloride 1,000 unit 1X ONCE IART Last administered on 09:59; Start 10/26/16 at 09:15; Stop 10/26/16 at 09:16; Status DC Lidocaine/Sodium Bicarbonate (Buffered Lidocaine 1%) 20 ml 1X ONCE IJ Last administered on 10/26/16 09:15; Start 10/26/16 at 09:15; Stop 10/26/16 at 09:16 ; Status DC Lidocaine (Lidoderm) 1 patch DAILY TD Last administered on 10/27/16 10:00; Start 10/26/16 at 21:30 Methylprednisolone Sodium Succinate (SOLU-Medrol 125MG VIAL) 250 mg 1X ONCE IV Last administered on 10/27/16 12:13; Start 10/27/16 at 12:00; Stop 10/27/16 at 12:01; Status DC Dihydroergotamine Mesylate 1 mg/ Sodium Chloride 51 ml @ 102 mls/hr ONCE ONCE IV Last administered on 10/28/16 06:01; Start 10/28/16 at 06:00; Stop at 06:29; Status DC Dihydroergotamine Mesylate 1 mg/ Sodium Chloride 51 ml @ 102 mls/hr ONCE ONCE IV Last administered on 10/28/16 13:48; Start 10/28/16 at 14:00; Stop at 14:29 Oxycodone HCl (OxyCONTIN) 20 mg Q12HR PO Last administered on 10/28/16 11:36; Start 10/28/16 at 11:30 Methylprednisolone (Medrol) 4 mg BID PO Last administered on 10/28/16 11:36; Start 10/28/16 at 11:30 Active Scripts Active Reported Seroquel (Quetiapine Fumarate) 100 Mg Tablet 150 Mg PO PRN QHS PRN Metoprolol Tartrate 25 Mg Tablet 1 Tab PO QHS Dihydroergotamine Mesylate 1 Ml [place].pump 1 Ml NS PRN BID PRN Hydrocodone-Apap 5-325 (Hydrocodone Bit/Acetaminophen) 1 Each Tablet 1 Tab PO PRN Q4HRS PRN Loestrin (Norethindrone A-E Estradiol) 1 Each Tablet 1 Tab PO DAILY Clonazepam 1 Mg Tablet 1 Mg PO PRN TID PRN Tizanidine Hcl 4 Mg Tablet 4 Mg PO QID PRN Seroquel (Quetiapine Fumarate) 300 Mg Tablet 300 Mg PO HS Marinol (Dronabinol) 5 Mg Capsule 5 Mg PO PRN TID PRN Nifedipine Er (Nifedipine) 30 Mg Tab.er.24 1 Tab PO HS Benadryl (Diphenhydramine Hcl) 25 Mg Capsule 2 Cap PO PRN Q6-8HRS PRN Zofran (Ondansetron Hcl) 8 Mg Tablet 8 Mg PO BID PRN Vitals/I & O Vital Sign - Last 24 Hours 10/27/16 10/27/16 10/27/16 10/27/16 15:00 18:20 18:50 19:29 Temp 97.4 98.5 97.4 98.5 Pulse 85 93 Resp 18 18 B/P (MAP) 130/74 (92) 141/88 (105) Pulse Ox 96 96 96 97 O2 Delivery Room Air Room Air Room Air Room Air 10/27/16 10/27/16 10/27/16 10/28/16 20:00 21:53 23:57 03:22 Temp 98.3 98.3 Pulse 93 87 Resp 18 B/P (MAP) 141/88 148/80 (102) Pulse Ox 93 O2 Delivery Room Air Room Air Room Air 10/28/16 10/28/16 10/28/16/23/17 03:46 07:00 08:00 08:54 Temp 97.5 97.5 Pulse 72 Resp 16 18 16 B/P (MAP) 135/76 (95) Pulse Ox 95 O2 Delivery Room Air Room Air Room Air 10/28/16 10/28/16 10/28/16 09:54 11:00 11:36 Temp 97.7 97.7 Pulse 91 Resp 16 18 16 B/P (MAP) 111/65 (80) Pulse Ox 96 96 O2 Delivery Room Air Room Air Intake and Output 10/28/16 10/28/16 10/29/16 15:00 23:00 07:00 Intake Total 300 ml Balance 300 ml AMIRA SANTACRUZ MD Oct 28, 2016 14:30
[2016-10-28 15:00] VITALS: BP 116/75
[2016-10-28] MEDS: ENOXAPARIN 40 MG/0.4 ML SYRINGE. SQ SCH (17:12)
[2016-10-28 19:37] VITALS: BP 106/56
[2016-10-28] MEDS: METOPROLOL TART IMMED RELEASE 25 MG TABLET. PO SCH (21:10)
[2016-10-28] MEDS: QUEtiapine 300 MG TAB.ER.24H. PO SCH (22:43)
[2016-10-28] MEDS: clonazePAM 1 MG TABLET PO PRN (22:43)
[2016-10-28 23:10] VITALS: BP 131/64
[2016-10-29] MEDS: QUEtiapine 100 MG TABLET. PO PRN (01:21)
[2016-10-29] MEDS: diphenhydrAMINE HCL 25 MG CAPSULE PO PRN (01:21)
[2016-10-29] MEDS: HYDROcodone/APAP 5/325MG 1 TAB TABLET PO PRN (01:24)
[2016-10-29] MEDS: METOCLOPRAMIDE HCL 10 MG/2 ML VIAL. IV SCH ×2 (06:00→11:51)
[2016-10-29 07:00] VITALS: BP 115/78
[2016-10-29 08:11] VITALS: BP 115/78
[2016-10-29] MEDS: methylPREDNISolone 4 MG TABLET. PO SCH (08:20)
[2016-10-29] MEDS: DRONABINOL 2.5 MG CAPSULE. PO SCH ×2 (08:20→11:51)
[2016-10-29] MEDS: oxyCODONE ER 10 MG TAB.ER.12H PO SCH (08:20)
[2016-10-29] MEDS: LOESTRIN FE PO SCH (08:25)
[2016-10-29] MEDS: LIDOCAINE (700MG/PATCH) PATCH. TD SCH (08:25)
[2016-10-29] MEDS: tiZANidine 4 MG TABLET. PO PRN (11:50)
[2016-10-29] MEDS: oxyCODONE/APAP 10/325 1 TAB TABLET PO PRN (11:50)
--- NOTE | 2016-10-29 13:17 | PDOC ---
PROGRESS NOTES Chief Complaint Chief Complaint Intractable headache 2/2 migraine flare - status migranosis Chronic migraine headache w. acute flare, HTN OA obese, BMI 33 coagulopathy NOS History of Present Illness History of Present Illness minimal improved, still marked pain, DHE infusion stopped IV solumedrol given 2 days ago, cont PO cont sched Oxycontin, Neuro following has slept some less swollen at PICC line, on lovenox, heme consulted for reported coagulopathy, NOS, Vitals Vitals Vital Signs Date Time Temp Pulse Resp B/P (MAP) Pulse Ox O2 Delivery O2 Flow Rate FiO2 10/29/16 11:50 16 96 Room Air 10/29/16 08:11 98.1 66 115/78 (90) 98.1 Physical Exam General: Alert, Cooperative, mild distress (pain) Heart: Regular rate Lungs: Clear, Other Extremities: No clubbing, No cyanosis Review of Systems Review of Systems neck pain, nausea and frontal and occipital headachce today Assessment and Plan Assessmemt and Plan cont current Problems: Comment Review of Relevant I have reviewed the following items sadaf (where applicable) has been applied. Medications Current Medications Acetaminophen (Tylenol) 650 mg PRN Q6HRS PRN PO FEVER; Start 10/24/16 at 17:15 Ondansetron HCl (Zofran) 4 mg PRN Q6HRS PRN IV NAUSEA/VOMITING; Start 10/24/16 at 17:15 Morphine Sulfate 2 mg PRN Q2HR PRN IV PAIN; Start 10/24/16 at 17:15 Tramadol HCl (Ultram) 50 mg PRN Q6HRS PRN PO PAIN Last administered on 21:49; Start 10/24/16 at 17:15; Stop 10/28/16 at 11:25; Status DC Hydralazine HCl (Apresoline) 10 mg PRN Q4HRS PRN IVP ELEVATED BP, SEE COMMENTS ; Start 10/24/16 at 17:15 Docusate Sodium (Colace) 100 mg PRN DAILY PRN PO CONSTIPATION Last administered on 10/26/16 04:46; Start 10/24/16 at 17:15 Hydromorphone HCl (Dilaudid) 2 mg PRN Q4HRS PRN IV PAIN Last administered on 18:20; Start 10/24/16 at 17:15 Oxycodone/ Acetaminophen (Percocet 10/325) 1 tab PRN Q4HRS PRN PO MODERATE TO SEVERE PAIN Last administered on 10/29/16 11:50; Start 10/24/16 at 17:15 Enoxaparin Sodium (Lovenox 40mg Syringe) 40 mg Q24H SQ Last administered on 18:21; Start 10/24/16 at 18:00 Sumatriptan Succinate (Imitrex) 50 mg PRN Q2HR PRN PO MIGRAINE HEADACHE Last administered on 10/25/16 00:20; Start 10/24/16 at 17:30; Stop 10/25/16 at 08:46 ; Status DC Clonazepam (KlonoPIN) 1 mg PRN TID PRN PO ANXIETY Last administered on 22:43; Start 10/24/16 at 17:30 Diphenhydramine HCl (Benadryl) 50 mg PRN Q6HRS PRN PO HEADACHE Last administered on 10/29/16 01:21; Start 10/24/16 at 17:30 Acetaminophen/ Hydrocodone Bitart (Lortab 5/325) 1 tab PRN Q4HRS PRN PO MILD TO MODERATE PAIN Last administered on 10/29/16 01:24; Start 10/24/16 at 17:30 Metoprolol Tartrate (Lopressor) 25 mg QHS PO Last administered on 10/28/16 21: 10; Start 10/24/16 at 21:00 Tizanidine HCl (Zanaflex) 4 mg PRN QID PRN PO MUSCLE SPASMS Last administered on 10/29/16 11:50; Start 10/24/16 at 17:30 Non-Formulary Medication 1 ml PRN BID PRN NS MIGRAINE HEADACHE; Start 10/24/16 at 17:30; Stop 10/25/16 at 08:46; Status DC Dronabinol (Marinol) 5 mg TIDAC PO Last administered on 10/29/16 11:51; Start 10/25/16 at 07:30 Non-Formulary Medication 1 tab DAILY PO Last administered on 10/29/16 08:25; Start 10/26/16 at 09:00 Ondansetron HCl (Zofran Odt) 8 mg PRN BID PRN PO NAUSEA/VOMITING Last administered on 10/28/16 03:53; Start 10/24/16 at 17:45 Quetiapine Fumarate (SEROquel XR) 300 mg QHS PO Last administered on 10/28/16 22:43; Start 10/24/16 at 21:00 Ketorolac Tromethamine (Toradol) 15 mg PRN Q6HRS PRN IV PAIN Last administered on 10/25/16 02:37; Start 10/24/16 at 17:30; Stop 10/25/16 at 08:46; Status DC Diphenhydramine HCl (Benadryl) 25 mg PRN Q6HRS PRN IVP ITCHING Last administered on 10/28/16 03:46; Start 10/24/16 at 17:30 Metoclopramide HCl (Reglan) 10 mg PRN Q6HRS PRN IV NAUSEA/VOMITING Last administered on 10/25/16 06:10; Start 10/24/16 at 17:30; Stop 10/25/16 at 08:46 ; Status DC Gadobutrol (Gadavist) 7.5 mmol 1X ONCE IV Last administered on 10/24/16 20:36 ; Start 10/24/16 at 20:15; Stop 10/24/16 at 20:18; Status DC Metoclopramide HCl (Reglan) 10 mg Q8HRS IV Last administered on 10/29/16 11:51 ; Start 10/25/16 at 08:45 Dihydroergotamine Mesylate 1 mg/ Sodium Chloride 51 ml @ 102 mls/hr Q8HRS IV Last administered on 10/27/16 21:48; Start 10/25/16 at 09:00; Stop 10/27/16 at 22:29; Status DC Influenza Virus Vaccine Quadrival (Fluarix Quad [id number] Syringe) 0.5 ml ONCE ONCE VAX IM Last administered on 10/25/16 13:45; Start 10/25/16 at 13:45; Stop 10/25/16 at 13:46; Status DC Quetiapine Fumarate (SEROquel) 150 mg PRN QHS PRN PO ANXIETY Last administered on 10/29/16 01:21; Start 10/25/16 at 22:15 Non-Formulary Medication 1 ea PRN DAILY PRN PO SEE PACKAGE DIRECTIONS; Start at 07:00; Stop 10/27/16 at 13:00; Status DC Lidocaine/Sodium Bicarbonate (Buffered Lidocaine 1%) 20 ml STK-MED ONCE IJ ; Start 10/26/16 at 09:08; Stop 10/26/16 at 09:09; Status DC Heparin Sodium/ Sodium Chloride 500 ml @ As Directed STK-MED ONCE .ROUTE ; Start 10/26/16 at 09:08; Stop 10/26/16 at 09:09; Status DC Heparin Sodium/ Sodium Chloride 1,000 unit 1X ONCE IART Last administered on 09:59; Start 10/26/16 at 09:15; Stop 10/26/16 at 09:16; Status DC Lidocaine/Sodium Bicarbonate (Buffered Lidocaine 1%) 20 ml 1X ONCE IJ Last administered on 10/26/16 09:15; Start 10/26/16 at 09:15; Stop 10/26/16 at 09:16 ; Status DC Lidocaine (Lidoderm) 1 patch DAILY TD Last administered on 10/27/16 10:00; Start 10/26/16 at 21:30 Methylprednisolone Sodium Succinate (SOLU-Medrol 125MG VIAL) 250 mg 1X ONCE IV Last administered on 10/27/16 12:13; Start 10/27/16 at 12:00; Stop 10/27/16 at 12:01; Status DC Dihydroergotamine Mesylate 1 mg/ Sodium Chloride 51 ml @ 102 mls/hr ONCE ONCE IV Last administered on 10/28/16 06:01; Start 10/28/16 at 06:00; Stop at 06:29; Status DC Dihydroergotamine Mesylate 1 mg/ Sodium Chloride 51 ml @ 102 mls/hr ONCE ONCE IV Last administered on 10/28/16 13:48; Start 10/28/16 at 14:00; Stop at 14:29; Status DC Oxycodone HCl (OxyCONTIN) 20 mg Q12HR PO Last administered on 10/29/16 08:20; Start 10/28/16 at 11:30 Methylprednisolone (Medrol) 4 mg BID PO Last administered on 10/29/16 08:20; Start 10/28/16 at 11:30 Active Scripts Active Reported Seroquel (Quetiapine Fumarate) 100 Mg Tablet 150 Mg PO PRN QHS PRN Metoprolol Tartrate 25 Mg Tablet 1 Tab PO QHS Dihydroergotamine Mesylate 1 Ml [place].pump 1 Ml NS PRN BID PRN Hydrocodone-Apap 5-325 (Hydrocodone Bit/Acetaminophen) 1 Each Tablet 1 Tab PO PRN Q4HRS PRN Loestrin (Norethindrone A-E Estradiol) 1 Each Tablet 1 Tab PO DAILY Clonazepam 1 Mg Tablet 1 Mg PO PRN TID PRN Tizanidine Hcl 4 Mg Tablet 4 Mg PO QID PRN Seroquel (Quetiapine Fumarate) 300 Mg Tablet 300 Mg PO HS Marinol (Dronabinol) 5 Mg Capsule 5 Mg PO PRN TID PRN Nifedipine Er (Nifedipine) 30 Mg Tab.er.24 1 Tab PO HS Benadryl (Diphenhydramine Hcl) 25 Mg Capsule 2 Cap PO PRN Q6-8HRS PRN Zofran (Ondansetron Hcl) 8 Mg Tablet 8 Mg PO BID PRN Vitals/I & O Vital Sign - Last 24 Hours 10/28/16 10/28/16 10/28/16 10/28/16 15:00 15:36 19:37 20:00 Temp 97.8 97.5 97.8 97.5 Pulse 65 91 Resp 18 16 16 B/P (MAP) 116/75 (89) 106/56 (73) Pulse Ox 94 92 O2 Delivery Room Air Room Air Room Air 10/28/16 10/28/16 10/28/16 10/28/16 21:10 22:35 23:10 23:57 Temp 98.1 98.1 Pulse 91 63 Resp 16 B/P (MAP) 106/56 131/64 (86) Pulse Ox 92 96 92 O2 Delivery Room Air Room Air Room Air 10/28/16 10/29/16 10/29/16 10/29/16 23:57 01:24 07:00 08:11 Temp 98.1 98.1 98.1 98.1 Pulse 66 66 Resp 18 18 B/P (MAP) 115/78 (90) 115/78 (90) Pulse Ox 92 92 96 96 O2 Delivery Room Air Room Air Room Air Room Air 10/29/16 10/29/16 10/29/16 08:20 08:20 11:50 Resp 16 16 Pulse Ox 96 96 O2 Delivery Room Air Room Air Room Air Intake and Output 10/29/16 10/29/16 10/30/16 15:00 23:00 07:00 Intake Total 300 ml Balance 300 ml GERRI ANAYA MD Oct 29, 2016 13:17
--- NOTE | 2016-10-29 13:35 | PDOC ---
PROGRESS NOTES Assessment Intractable migraine headache, status migrainosus, better this morning, worse after a nap this afternoon History of hypercoaguable state Plan Finished with DHE Received a single dose of IV Solu-Medrol, hold on repeating Dilaudid and hydrocodone ordered. Hold on narcotic SHOVE UP continuously Hold on MR venogram. Nothing to be gained from further hospital stay Next year, I reassured patient, new anti-migraine therapy will be available ( CGRP agents, nerve stimulators) Subjective headache was better, worse after a nap Objective Vital Signs Date Time Temp Pulse Resp B/P (MAP) Pulse Ox O2 Delivery O2 Flow Rate FiO2 10/29/16 12:50 16 96 Room Air 10/29/16 08:11 98.1 66 115/78 (90) 98.1 Intake and Output 10/30/16 07:00 Intake Total 300 ml Balance 300 ml Intake Oral 300 ml PHYSICAL EXAM Still has severe headache, 7/10 headache now Alert. Oriented to time, place and person. PERRL. EOMI. CN: no focal findings. Muscle tone: normal. Muscle strength: 5/5 DTR: 2+ Plantar reflex: Flexor Gait: not examined in bed. Sensory exam: no abnormal findings. Review of Relevant I have reviewed the following items sadaf (where applicable) has been applied. Medications Current Medications Acetaminophen (Tylenol) 650 mg PRN Q6HRS PRN PO FEVER; Start 10/24/16 at 17:15 Ondansetron HCl (Zofran) 4 mg PRN Q6HRS PRN IV NAUSEA/VOMITING; Start 10/24/16 at 17:15 Morphine Sulfate 2 mg PRN Q2HR PRN IV PAIN; Start 10/24/16 at 17:15 Tramadol HCl (Ultram) 50 mg PRN Q6HRS PRN PO PAIN Last administered on t 21:49; Start 10/24/16 at 17:15; Stop 10/28/16 at 11:25; Status DC Hydralazine HCl (Apresoline) 10 mg PRN Q4HRS PRN IVP ELEVATED BP, SEE COMMENTS ; Start 10/24/16 at 17:15 Docusate Sodium (Colace) 100 mg PRN DAILY PRN PO CONSTIPATION Last administered on 10/26/16t 04:46; Start 10/24/16 at 17:15 Hydromorphone HCl (Dilaudid) 2 mg PRN Q4HRS PRN IV PAIN Last administered on 18:20; Start 10/24/16 at 17:15 Oxycodone/ Acetaminophen (Percocet 10/325) 1 tab PRN Q4HRS PRN PO MODERATE TO SEVERE PAIN Last administered on 10/29/16 11:50; Start 10/24/16 at 17:15 Enoxaparin Sodium (Lovenox 40mg Syringe) 40 mg Q24H SQ Last administered on 18:21; Start 10/24/16 at 18:00 Sumatriptan Succinate (Imitrex) 50 mg PRN Q2HR PRN PO MIGRAINE HEADACHE Last administered on 10/25/16 00:20; Start 10/24/16 at 17:30; Stop 10/25/16 at 08:46 ; Status DC Clonazepam (KlonoPIN) 1 mg PRN TID PRN PO ANXIETY Last administered on 22:43; Start 10/24/16 at 17:30 Diphenhydramine HCl (Benadryl) 50 mg PRN Q6HRS PRN PO HEADACHE Last administered on 10/29/16 01:21; Start 10/24/16 at 17:30 Acetaminophen/ Hydrocodone Bitart (Lortab 5/325) 1 tab PRN Q4HRS PRN PO MILD TO MODERATE PAIN Last administered on 10/29/16 01:24; Start 10/24/16 at 17:30 Metoprolol Tartrate (Lopressor) 25 mg QHS PO Last administered on 10/28/16 21: 10; Start 10/24/16 at 21:00 Tizanidine HCl (Zanaflex) 4 mg PRN QID PRN PO MUSCLE SPASMS Last administered on 10/29/16 11:50; Start 10/24/16 at 17:30 Non-Formulary Medication 1 ml PRN BID PRN NS MIGRAINE HEADACHE; Start 10/24/16 at 17:30; Stop 10/25/16 at 08:46; Status DC Dronabinol (Marinol) 5 mg TIDAC PO Last administered on 10/29/16 11:51; Start 10/25/16 at 07:30 Non-Formulary Medication 1 tab DAILY PO Last administered on 10/29/16 08:25; Start 10/26/16 at 09:00 Ondansetron HCl (Zofran Odt) 8 mg PRN BID PRN PO NAUSEA/VOMITING Last administered on 10/28/16 03:53; Start 10/24/16 at 17:45 Quetiapine Fumarate (SEROquel XR) 300 mg QHS PO Last administered on 10/28/16 22:43; Start 10/24/16 at 21:00 Ketorolac Tromethamine (Toradol) 15 mg PRN Q6HRS PRN IV PAIN Last administered on 10/25/16 02:37; Start 10/24/16 at 17:30; Stop 10/25/16 at 08:46; Status DC Diphenhydramine HCl (Benadryl) 25 mg PRN Q6HRS PRN IVP ITCHING Last administered on 10/28/16 03:46; Start 10/24/16 at 17:30 Metoclopramide HCl (Reglan) 10 mg PRN Q6HRS PRN IV NAUSEA/VOMITING Last administered on 10/25/16 06:10; Start 10/24/16 at 17:30; Stop 10/25/16 at 08:46 ; Status DC Gadobutrol (Gadavist) 7.5 mmol 1X ONCE IV Last administered on 10/24/16 20:36 ; Start 10/24/16 at 20:15; Stop 10/24/16 at 20:18; Status DC Metoclopramide HCl (Reglan) 10 mg Q8HRS IV Last administered on 10/29/16 11:51 ; Start 10/25/16 at 08:45 Dihydroergotamine Mesylate 1 mg/ Sodium Chloride 51 ml @ 102 mls/hr Q8HRS IV Last administered on 10/27/16 21:48; Start 10/25/16 at 09:00; Stop 10/27/16 at 22:29; Status DC Influenza Virus Vaccine Quadrival (Fluarix Quad [id number] Syringe) 0.5 ml ONCE ONCE VAX IM Last administered on 10/25/16 13:45; Start 10/25/16 at 13:45; Stop 10/25/16 at 13:46; Status DC Quetiapine Fumarate (SEROquel) 150 mg PRN QHS PRN PO ANXIETY Last administered on 10/29/16 01:21; Start 10/25/16 at 22:15 Non-Formulary Medication 1 ea PRN DAILY PRN PO SEE PACKAGE DIRECTIONS; Start at 07:00; Stop 10/27/16 at 13:00; Status DC Lidocaine/Sodium Bicarbonate (Buffered Lidocaine 1%) 20 ml STK-MED ONCE IJ ; Start 10/26/16 at 09:08; Stop 10/26/16 at 09:09; Status DC Heparin Sodium/ Sodium Chloride 500 ml @ As Directed STK-MED ONCE .ROUTE ; Start 10/26/16 at 09:08; Stop 10/26/16 at 09:09; Status DC Heparin Sodium/ Sodium Chloride 1,000 unit 1X ONCE IART Last administered on 09:59; Start 10/26/16 at 09:15; Stop 10/26/16 at 09:16; Status DC Lidocaine/Sodium Bicarbonate (Buffered Lidocaine 1%) 20 ml 1X ONCE IJ Last administered on 10/26/16 09:15; Start 10/26/16 at 09:15; Stop 10/26/16 at 09:16 ; Status DC Lidocaine (Lidoderm) 1 patch DAILY TD Last administered on 10/27/16 10:00; Start 10/26/16 at 21:30 Methylprednisolone Sodium Succinate (SOLU-Medrol 125MG VIAL) 250 mg 1X ONCE IV Last administered on 10/27/16 12:13; Start 10/27/16 at 12:00; Stop 10/27/16 at 12:01; Status DC Dihydroergotamine Mesylate 1 mg/ Sodium Chloride 51 ml @ 102 mls/hr ONCE ONCE IV Last administered on 10/28/16 06:01; Start 10/28/16 at 06:00; Stop at 06:29; Status DC Dihydroergotamine Mesylate 1 mg/ Sodium Chloride 51 ml @ 102 mls/hr ONCE ONCE IV Last administered on 10/28/16 13:48; Start 10/28/16 at 14:00; Stop at 14:29; Status DC Oxycodone HCl (OxyCONTIN) 20 mg Q12HR PO Last administered on 10/29/16 08:20; Start 10/28/16 at 11:30 Methylprednisolone (Medrol) 4 mg BID PO Last administered on 10/29/16t 08:20; Start 10/28/16 at 11:30 Active Scripts Active Reported Seroquel (Quetiapine Fumarate) 100 Mg Tablet 150 Mg PO PRN QHS PRN Metoprolol Tartrate 25 Mg Tablet 1 Tab PO QHS Dihydroergotamine Mesylate 1 Ml [place].pump 1 Ml NS PRN BID PRN Hydrocodone-Apap 5-325 (Hydrocodone Bit/Acetaminophen) 1 Each Tablet 1 Tab PO PRN Q4HRS PRN Loestrin (Norethindrone A-E Estradiol) 1 Each Tablet 1 Tab PO DAILY Clonazepam 1 Mg Tablet 1 Mg PO PRN TID PRN Tizanidine Hcl 4 Mg Tablet 4 Mg PO QID PRN Seroquel (Quetiapine Fumarate) 300 Mg Tablet 300 Mg PO HS Marinol (Dronabinol) 5 Mg Capsule 5 Mg PO PRN TID PRN Nifedipine Er (Nifedipine) 30 Mg Tab.er.24 1 Tab PO HS Benadryl (Diphenhydramine Hcl) 25 Mg Capsule 2 Cap PO PRN Q6-8HRS PRN Zofran (Ondansetron Hcl) 8 Mg Tablet 8 Mg PO BID PRN Vitals/I & O Vital Sign - Last 24 Hours 10/28/16 10/28/16 10/28/16 10/28/16 15:00 19:37 20:00 21:10 Temp 97.8 97.5 97.8 97.5 Pulse 65 91 91 Resp 18 16 B/P (MAP) 116/75 (89) 106/56 (73) 106/56 Pulse Ox 94 92 O2 Delivery Room Air Room Air Room Air 10/28/16 10/28/16 10/29/16 10/29/16 22:35 23:10 01:24 07:00 Temp 98.1 98.1 98.1 98.1 Pulse 63 66 Resp 16 18 B/P (MAP) 131/64 (86) 115/78 (90) Pulse Ox 92 96 92 96 O2 Delivery Room Air Room Air Room Air Room Air 10/29/16 10/29/16 10/29/16 10/29/16 08:11 08:20 08:20 11:50 Temp 98.1 98.1 Pulse 66 Resp 18 16 16 B/P (MAP) 115/78 (90) Pulse Ox 96 96 96 O2 Delivery Room Air Room Air Room Air Room Air 10/29/16 10/29/16 12:20 12:50 Resp 16 16 Pulse Ox 96 96 O2 Delivery Room Air Room Air Intake and Output 10/29/16 10/29/16 10/30/16 15:00 23:00 07:00 Intake Total 300 ml Balance 300 ml AMIRA SANTACRUZ MD Oct 29, 2016 13:35
[2016-10-29 14:44] VITALS: BP 95/51
[2016-10-29] MEDS ORDERED: OXYC1TAB9 PO (14:48)
[2016-10-29] MEDS ORDERED: OXYC10TA45 PO (14:48)
[2016-10-29] MEDS ORDERED: CLON1TAB3 PO (14:48)
[2016-10-29] MEDS ORDERED: ONDA8TAB9 PO (14:48)
[2016-10-29] MEDS ORDERED: TIZA4TAB PO (14:48)
[2016-10-29] MEDS ORDERED: PROC10TA57 PO (14:49)
[2016-10-31 08:05] LABS: ANTITHROMBIN III SEE SEPARATE REPORT; LUPUS ANTICOAGULANT SEE SEPARATE REPORT; PROTEIN C ACTIVITY SEE SEPARATE REPORT; PROTEIN S ACTIVITY SEE SEPARATE REPORT
[2016-10-31 18:12] LABS: PROTHROMBIN GENE MUTATION Negative (.)
== END 2016-10-29 16:00 | disposition home or self-care (01) | DRG 103 ==
LOC: 6 SOUTH 15:48
PROVIDERS: ADMIT Internal Medicine; ATTEND Internal Medicine
PROC: 02HV33Z Insertion of Infusion Device into Superior Vena Cava, Percutaneous Approach (ICD-10-PCS; principal; 2016-10-26)
PROC: B5181ZA Fluoroscopy of Superior Vena Cava using Low Osmolar Contrast, Guidance (ICD-10-PCS; 2016-10-26)
PROC: B548ZZA Ultrasonography of Superior Vena Cava, Guidance (ICD-10-PCS; 2016-10-26)
DX: G43.911 Migraine, unspecified, intractable, with status migrainosus (principal); D68.9 Coagulation defect, unspecified; I10 Essential (primary) hypertension; E66.9 Obesity, unspecified; M19.90 Unspecified osteoarthritis, unspecified site; Z88.8 Allergy status to other drugs, medicaments and biological substances; Z68.33 Body mass index [BMI] 33.0-33.9, adult; Z82.49 Family history of ischemic heart disease and other diseases of the circulatory system
CPT/HCPCS: 36415; 36569; 72158; 76937; 77001; 80048; 80053; 81240; 85025; 85300; 85302; 85305; 85306; 85610; 86147; 90686; 93971; A9585; C1751; C1892; J1110; J1170; J1200; J1644; J1650; J1885; J2765; J2930; J7509; Q0162; Q0163; Q0167

== ENCOUNTER → 2016-11-13 | Outpatient (CLI) | payer OTHER ==
[2016-10-29 14:44] VITALS: BP 95/51
[~2016-11-13] MED LIST changes: +GADOBUTROL 7.5 MMOL/7.5 ML VIAL IV ONE; +OXYC10TA45 PO; +OXYC1TAB9 PO; +PROC10TA57 PO; +QUET100T4 PO
[2016-11-13 13:57] LABS: CREATININE 0.8 mg/dL (0.6-1.0); GFR 80.7
--- NOTE | 2016-11-13 16:17 | RAD ---
MRI Thoracic Spine without and with contrast History: Worsening back pain and spasms, paresthesia Technique: Multiplanar, multi sequential pre and postcontrast MR imaging was performed of the thoracic spine. Contrast: 7.5 cc Gadavist Comparison: None Findings: There is motion degradation. There is multilevel prominence of the central canal of the cord such as T6-T7 through T11-12. Accurate evaluation for other thoracic cord signal abnormality is limited due to motion artifact. There is no significant cord expansion. Thoracic vertebral body stature and AP alignment are maintained. Intervertebral disc spaces are adequate. There is no significant thoracic spinal stenosis or neural foramina compromise at any level. There is no focal posterior disc abnormality of the thoracic spine. Impression: 1. There is no significant thoracic spinal stenosis or neural foramina compromise. 2. 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 Electronically signed by: Nickolas Hendrickson MD (11/13/2016 4:13 PM) [email or web address]
== END | disposition home or self-care (01) ==
LOC: MRI 14:07
PROVIDERS: ATTEND Psychiatry & Neurology Neurology
DX: M54.6 Pain in thoracic spine (principal); R20.2 Paresthesia of skin; Z90.49 Acquired absence of other specified parts of digestive tract
CPT/HCPCS: 36415; 72157; 82306; 82550; 82565; 82607; 84520

== ENCOUNTER → 2016-12-25 | Outpatient (CLI) | payer OTHER ==
[~2016-12-25] MED LIST changes: -GADOBUTROL 7.5 MMOL/7.5 ML VIAL IV ONE
--- NOTE | 2016-12-26 09:31 | KCIC ---
MR of the left knee Indication: Anterior knee pain after an injury on November 27. Technique: The standard multiplanar sequences are obtained. Findings: Medial meniscus:Intact. Lateral meniscus: Intact. Anterior cruciate ligament: Intact Posterior cruciate ligament: Intact Medial collateral ligament: Intact. Iliotibial band: Intact. Posterolateral structures: Fibular collateral ligament, biceps tendon and popliteus tendon are intact. Extensor mechanism: Intact. Fluid: No significant joint effusion. No significant Whitaker's cyst. 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 -lateral compartment:Intact Bones: No significant lesion or acute fracture. Soft tissue: Unremarkable Impression: 1. No meniscal tear or internal derangement. 2. 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 Electronically signed by: Maynor Nathan MD (12/26/2016 9:27 AM) [email or web address]
--- NOTE | 2016-12-26 09:34 | KCIC ---
MR of the right knee Indication: Pain after an injury November 27. Pain anterior. Technique: The standard multiplanar sequences are obtained. Findings: Medial meniscus:Intact. Lateral meniscus: Intact. Anterior cruciate ligament: Intact Posterior cruciate ligament: Intact Medial collateral ligament: Intact. Iliotibial band: Intact. Posterolateral structures: Fibular collateral ligament, biceps tendon and popliteus tendon are intact. Extensor mechanism: Intact. Fluid: Trace joint fluid. Articular cartilage -patellofemoral joint:Intact -medial compartment:Intact -lateral compartment:Intact Bones: No significant lesion or acute fracture. Soft tissue: Unremarkable Impression: No meniscal tear or internal derangement. Electronically signed by: Maynor Nathan MD (12/26/2016 9:31 AM) [email or web address]
== END | disposition home or self-care (01) ==
LOC: KCIC MRI 16:39
PROVIDERS: ATTEND Family Medicine
DX: M94.262 Chondromalacia, left knee (principal); M94.261 Chondromalacia, right knee
CPT/HCPCS: 73721

== ENCOUNTER → 2017-07-05 | Outpatient (CLI) | payer OTHER | END | disposition home or self-care (01) | LOC: KCIC MRI 11:25 | DX: M50.022 Cervical disc disorder at C5-C6 level with myelopathy (principal); M25.78 Osteophyte, vertebrae; Z91.81 History of falling | CPT/HCPCS: 72141; 72146 ==

== ENCOUNTER 2018-07-06 20:09 | Emergency (ER) | payer OTHER, SELFPAY ==
[~2018-07-06] VITALS: Ht 165.1 cm; Wt 72.6 kg
[~2018-07-06 20:09] MED LIST changes: +CLON1TAB11 PO; -CLON1TAB3 PO; -HYDR-2758 PO; +HYDR-2761 PO; +OXYC-411 PO; -OXYC10TA45 PO; +OXYC10TA46 PO; -OXYC1TAB9 PO
[2018-07-06] MEDS ORDERED: IV NORMAL SALINE 1000ML BAG 1,000 ML IV ONE (20:30)
[2018-07-06] MEDS ORDERED: MULTIVIT INFUSN,ADULT 4,VIT K 10 ML, THIAMINE INJ 100 MG, FOLIC ACID INJ 1 MG in IV NOR... IV SCH (20:30)
[2018-07-06 20:38] LABS: BASO # 0.1 x10^3/uL (0.0-0.2); BASO % 1 % (0-3); EOS % 1 % (0-3); HEMATOCRIT 38.6 % (36.0-47.0); HEMOGLOBIN 12.9 g/dL (12.0-15.5); LYMPH # 1.6 x10^3/uL (1.0-4.8); LYMPH % 22 % (24-48); MEAN CORPUSCULAR HEMOGLOBIN 29 pg (25-35); MEAN CORPUSCULAR HGB CONC 34 g/dL (31-37); MEAN CORPUSCULAR VOLUME 87 fL (79-100); MONO # 0.5 x10^3/uL (0.0-1.1); MONO % 7 % (0-9); NEUT % 69 % (31-73); PLATELET COUNT 294 x10^3/uL (140-400); RED BLOOD COUNT 4.44 x10^6/uL (3.50-5.40); RED CELL DISTRIBUTION WIDTH 13.6 % (11.5-14.5); WHITE BLOOD COUNT 7.1 x10^3/uL (4.0-11.0)
[2018-07-06 20:55] LABS: PROTHROMBIN TIME PATIENT 13.3 SEC (11.7-14.0)
[2018-07-06 20:58] LABS: CALCIUM 9.2 mg/dL (8.5-10.1); CREATININE 1.4 mg/dL (0.6-1.0); GFR 41.9; POTASSIUM 3.3 mmol/L (3.5-5.1)
[2018-07-06 21:04] LABS: ALBUMIN 3.5 g/dL (3.4-5.0); MAGNESIUM 1.9 mg/dL (1.8-2.4); TOTAL BILIRUBIN 0.2 mg/dL (0.2-1.0); TOTAL PROTEIN 6.9 g/dL (6.4-8.2)
[2018-07-06] MEDS ORDERED: POTASSIUM CHLORIDE 20 MEQ TABLET.ER. PO ONE (22:15)
[2018-07-06 22:17] LABS: BILIRUBIN,URINE SMALL (NEG); CLARITY,URINE CLEAR; COLOR,URINE YELLOW; NITRITE,URINE NEGATIVE (NEG); PH,URINE 5.5; PROTEIN,URINE 30 mg/dL (NEG-TRACE); UROBILINOGEN,URINE 0.2 mg/dL (0.2 mg/dL)
[2018-07-06 22:27] LABS: RBC,URINE 0 /HPF (0-2); WBC,URINE 0 /HPF (0-4)
[2018-07-06 22:28] LABS: BACTERIA,URINE FEW /HPF (0-FEW); SQUAMOUS EPITHELIAL CELL,UR MOD /LPF
[2018-07-06 22:54] LABS: BARBITURATES NEG (NEG); BENZODIAZEPINES POS (NEG); CANNABINOIDS NEG (NEG); COCAINE NEG (NEG); METHADONE NEG (NEG); OPIATES NEG (NEG); PHENCYCLIDINE NEG (NEG)
[2018-07-06 22:58] LABS: ACETAMIN < 2 mcg/ml (10-30); ETHANOL 69 mg/dL (0-10); SALIC 4.7 mg/dL (2.8-20.0)
[2018-07-06 22:58] LABS: AMPHETAMINE/METHAMPHETAMINE NEG (NEG)
--- NOTE | 2018-07-06 23:33 | PHYS DOC ---
Past Medical History Past Medical History: No Pertinent History Additional Past Medical Histor: RA Past Surgical History: No Surgical History Alcohol Use: Heavy Drug Use: Benzodiazepine, Opiates Adult General Chief Complaint Chief Complaint: OVERDOSE HPI HPI Patient is a 38 year old [f__sex] who presents with [] Review of Systems Review of Systems Constitutional: Denies fever or chills [] Eyes: Denies change in visual acuity, redness, or eye pain [] HENT: Denies nasal congestion or sore throat [] Respiratory: Denies cough or shortness of breath [] Cardiovascular: No additional information not addressed in HPI [] GI: Denies abdominal pain, nausea, vomiting, bloody stools or diarrhea [] : Denies dysuria or hematuria [] Musculoskeletal: Denies back pain or joint pain [] Integument: Denies rash or skin lesions [] Neurologic: Denies headache, focal weakness or sensory changes [] Endocrine: Denies polyuria or polydipsia [] All other systems were reviewed and found to be within normal limits, except as documented in this note. Current Medications Current Medications Current Medications Medications (Trade) Dose Ordered Sig/Faraz Start Time Stop Time Status Last Admin Dose Admin Multivitamins 10 ml/Thiamine HCl 100 mg/Folic Acid 1 mg/Sodium Chloride 1,011.2 ml @ 1,000 mls/ hr Q1H 07/06/18 20:30 07/06/18 20:47 DC 07/06/18 20:30 1,000 MLS/HR Potassium Chloride (Klor-Con) 40 meq 1X ONCE 07/06/18 22:15 07/06/18 22:16 DC 07/06/18 22:15 40 MEQ Sodium Chloride 1,000 ml @ 1,000 mls/hr 1X ONCE 07/06/18 20:30 07/06/18 21:29 DC 07/06/18 20:34 1,000 MLS/HR Allergies Allergies Allergies Coded Allergies Type Severity Reaction Last Updated Verified benztropine Allergy Intermediate SEVERE PAIN 08/15/15 Yes dexamethasone Allergy Intermediate SEVERE PAIN 08/15/15 Yes Physical Exam Physical Exam Constitutional: Well developed, well nourished, no acute distress, non-toxic appearance. [] HENT: Normocephalic, atraumatic, bilateral external ears normal, oropharynx moist, no oral exudates, nose normal. [] Eyes: PERRLA, EOMI, conjunctiva normal, no discharge. [] Neck: Normal range of motion, no tenderness, supple, no stridor. [] Cardiovascular:Heart rate regular rhythm, no murmur [] Lungs & Thorax: Bilateral breath sounds clear to auscultation [] Abdomen: Bowel sounds normal, soft, no tenderness, no masses, no pulsatile masses. [] Skin: Warm, dry, no erythema, no rash. [] Back: No tenderness, no CVA tenderness. [] Extremities: No tenderness, no cyanosis, no clubbing, ROM intact, no edema. [] Neurologic: Alert and oriented X 3, normal motor function, normal sensory function, no focal deficits noted. [] Psychologic: Affect normal, judgement normal, mood normal. [] Current Patient Data Vital Signs Vital Signs Date Time Temp Pulse Resp B/P (MAP) Pulse Ox O2 Delivery O2 Flow Rate FiO2 07/07/18 00:46 77 16 131/72 (91) 100 Room Air 07/06/18 20:11 97.8 97.8 Lab Values Laboratory Tests Test 07/06/18 20:30 07/06/18 21:15 White Blood Count 7.1 x10^3/uL (4.0-11.0) Red Blood Count 4.44 x10^6/uL (3.50-5.40) Hemoglobin 12.9 g/dL (12.0-15.5) Hematocrit 38.6 % (36.0-47.0) Mean Corpuscular Volume 87 fL (79-100) Mean Corpuscular Hemoglobin 29 pg (25-35) Mean Corpuscular Hemoglobin Concent 34 g/dL (31-37) Red Cell Distribution Width 13.6 % (11.5-14.5) Platelet Count 294 x10^3/uL (140-400) Neutrophils (%) (Auto) 69 % (31-73) Lymphocytes (%) (Auto) 22 % (24-48) L Monocytes (%) (Auto) 7 % (0-9) Eosinophils (%) (Auto) 1 % (0-3) Basophils (%) (Auto) 1 % (0-3) Neutrophils # (Auto) 5.0 x10^3uL (1.8-7.7) Lymphocytes # (Auto) 1.6 x10^3/uL (1.0-4.8) Monocytes # (Auto) 0.5 x10^3/uL (0.0-1.1) Eosinophils # (Auto) 0.0 x10^3/uL (0.0-0.7) Basophils # (Auto) 0.1 x10^3/uL (0.0-0.2) Prothrombin Time 13.3 SEC (11.7-14.0) Prothrombin Time INR 1.0 (0.8-1.1) PTT 22 SEC (24-38) L Sodium Level 142 mmol/L (136-145) Potassium Level 3.3 mmol/L (3.5-5.1) L Chloride Level 103 mmol/L (98-107) Carbon Dioxide Level 21 mmol/L (21-32) Anion Gap 18 (6-14) H Blood Urea Nitrogen 16 mg/dL (7-20) Creatinine 1.4 mg/dL (0.6-1.0) H Estimated GFR (Cockcroft-Gault) 41.9 BUN/Creatinine Ratio 11 (6-20) Glucose Level 146 mg/dL (70-99) H Calcium Level 9.2 mg/dL (8.5-10.1) Magnesium Level 1.9 mg/dL (1.8-2.4) Total Bilirubin 0.2 mg/dL (0.2-1.0) Aspartate Amino Transferase (AST) 21 U/L (15-37) Alanine Aminotransferase (ALT) 36 U/L (14-59) Alkaline Phosphatase 45 U/L (46-116) L Total Protein 6.9 g/dL (6.4-8.2) Albumin 3.5 g/dL (3.4-5.0) Albumin/Globulin Ratio 1.0 (1.0-1.7) Lipase 84 U/L (73-393) Salicylates Level 4.7 mg/dL (2.8-20.0) Salicylate Last Dose Date Salicylate Last Dose Time Acetaminophen Level < 2 mcg/ml (10-30) L Acetaminophen Last Dose Date Acetaminophen Last Dose Time Ethyl Alcohol Level 69 mg/dL (0-10) H Urine Collection Type Unknown Urine Color Yellow Urine Clarity Clear Urine pH 5.5 Urine Specific [place] >=1.030 Urine Protein 30 mg/dL (NEG-TRACE) Urine Glucose (UA) Negative mg/dL (NEG) Urine Ketones (Stick) 15 mg/dL (NEG) Urine Blood Negative (NEG) Urine Nitrite Negative (NEG) Urine Bilirubin Small (NEG) Urine Urobilinogen Dipstick 0.2 mg/dL (0.2 mg/dL) Urine Leukocyte Esterase Negative (NEG) Urine RBC 0 /HPF (0-2) Urine WBC 0 /HPF (0-4) Urine Squamous Epithelial Cells Mod /LPF Urine Bacteria Few /HPF (0-FEW) Urine Mucus Mod /LPF Urine Opiates Screen Neg (NEG) Urine Methadone Screen Neg (NEG) Urine Barbiturates Neg (NEG) Urine Phencyclidine Screen Neg (NEG) Urine Amphetamine/Methamphetamine Neg (NEG) Urine Benzodiazepines Screen Pos (NEG) Urine Cocaine Screen Neg (NEG) Urine Cannabinoids Screen Neg (NEG) Urine Ethyl Alcohol Pos (NEG) Laboratory Tests 07/06/18 20:30 Laboratory Tests 07/06/18 20:30 EKG EKG @2023 NSR at 70bpm, NO ST elevation, q wave in III and t wave inversion V1-V2. Radiology/Procedures Radiology/Procedures [] Course & Med Decision Making Course & Med Decision Making Pertinent Labs and Imaging studies reviewed. (See chart for details) [] Dragon Disclaimer Dragon Disclaimer This electronic medical record was generated, in whole or in part, using a voice recognition dictation system. Departure Departure Impression: Primary Impression: Observation following alleged suicide attempt Additional Impressions: Medication overdose Hypokalemia Contusion Disposition: HOME, SELF-CARE Condition: IMPROVED Referrals: MICKY YOST MD (PCP) Patient Instructions: Contusion, [id number], Hypokalemia-Brief, Overdose, Adult, Potassium Content of Foods, RICE - Routine Care for Injuries, Easy-to-[place] d, Suicidal Feelings, How to Help Yourself Additional Instructions: Use over the counter Tylenol and Ibuprofen for pain or discomfort. Problem Qualifiers Additional Impressions: Medication overdose Encounter type: initial encounter Injury intent: undetermined intent Q ualified Codes: T50.904A - Poisoning by unspecified drugs, medicaments and biological substances, undetermined, initial encounter Contusion Encounter type: initial encounter Contusion area: knee Laterality: left Qualified Codes: S80.02XA - Contusion of left knee, initial encounter SÁNCHEZ DALEY DO Jul 06, 2018 23:33
[2018-07-07 00:46] VITALS: BP 131/72
--- NOTE | 2018-07-07 10:18 | RAD ---
Examination: 3 views of the left knee History: History of knee pain Comparison: None available Findings: The alignment of knee joint grossly appears unremarkable. There is no acute fracture or dislocation identified. Impression: No acute osseous findings.
--- NOTE | 2018-07-07 10:21 | RAD ---
Examination: 3 views of the left foot History: History of pain Comparison: None available. Findings: The alignment of the tarsal bones, tarsometatarsal joints, metatarsophalangeal , interphalangeal joints grossly appears unremarkable. There is no acute fracture or dislocation identified. Impression: no acute osseous findings.
--- NOTE | 2018-07-07 11:24 | EKG ---
[facility] [address] [place] [address] Test Date: 2018-07-06 Test Time: 20:23:38 Pat Name: PARVIZ ALBA Department: Room: Gender: F Senior C Web Developer: : 1980 Requested By: SÁNCHEZ DALEY Order Number: [id number] Reading MD: Measurements Intervals [place] Rate: 70 P: 39 GA: 146 QRS: 28 QRSD: 84 T: 28 QT: 488 QTc: 530 Interpretive Statements SINUS RHYTHM NON SPECIFIC T ABNORMALITY PROLONGED QT BORDERLINE ECG No previous ECG available for comparison
== END 2018-07-07 00:40 | disposition home or self-care (01) ==
LOC: ER 20:09
DX: S80.02XA Contusion of left knee, initial encounter (principal); T50.904A Poisoning by unspecified drugs, medicaments and biological substances, undetermined, initial encounter; E87.6 Hypokalemia; F10.20 Alcohol dependence, uncomplicated; Y90.3 Blood alcohol level of 60-79 mg/100 ml; Z88.8 Allergy status to other drugs, medicaments and biological substances; Y92.89 Other specified places as the place of occurrence of the external cause
CPT/HCPCS: 36415; 73562; 73630; 80053; 80307; 80329; 81001; 83690; 83735; 85025; 85610; 85730; 93005; 96365; 99285; G0480; J7030

== ENCOUNTER 2018-07-26 22:09 | Emergency (ER) | payer OTHER ==
[~2018-07-26] VITALS: Ht 165.1 cm; Wt 77.1 kg
[2018-07-26] MEDS ORDERED: IV NORMAL SALINE 1000ML BAG 1,000 ML IV ONE (23:00)
[2018-07-26 23:17] LABS: CALCIUM 9.7 mg/dL (8.5-10.1); CREATININE 0.8 mg/dL (0.6-1.0); GFR 79.9; POTASSIUM 3.2 mmol/L (3.5-5.1)
[2018-07-26 23:22] LABS: ALBUMIN 4.1 g/dL (3.4-5.0); ALBUMIN/GLOBULIN RATIO 1.1 (1.0-1.7); MAGNESIUM 1.8 mg/dL (1.8-2.4); TOTAL BILIRUBIN 0.4 mg/dL (0.2-1.0); TOTAL PROTEIN 7.9 g/dL (6.4-8.2)
[2018-07-26 23:23] LABS: BASO % 1 % (0-3); EOS # 0.1 x10^3/uL (0.0-0.7); EOS % 1 % (0-3); HEMATOCRIT 39.8 % (36.0-47.0); HEMOGLOBIN 13.9 g/dL (12.0-15.5); LYMPH # 2.4 x10^3/uL (1.0-4.8); LYMPH % 31 % (24-48); MEAN CORPUSCULAR HEMOGLOBIN 30 pg (25-35); MEAN CORPUSCULAR HGB CONC 35 g/dL (31-37); MEAN CORPUSCULAR VOLUME 86 fL (79-100); MONO # 0.7 x10^3/uL (0.0-1.1); MONO % 9 % (0-9); NEUT # 4.4 x10^3uL (1.8-7.7); NEUT % 58 % (31-73); PLATELET COUNT 270 x10^3/uL (140-400); RED BLOOD COUNT 4.62 x10^6/uL (3.50-5.40); RED CELL DISTRIBUTION WIDTH 13.5 % (11.5-14.5); WHITE BLOOD COUNT 7.6 x10^3/uL (4.0-11.0)
[2018-07-26 23:30] LABS: BILIRUBIN,URINE NEGATIVE (NEG); CLARITY,URINE CLEAR; COLOR,URINE YELLOW; NITRITE,URINE NEGATIVE (NEG); PH,URINE 6.5; PROTEIN,URINE NEGATIVE (NEG-TRACE); UROBILINOGEN,URINE 0.2 mg/dL (0.2 mg/dL)
[2018-07-26 23:36] LABS: BACTERIA,URINE FEW /HPF (0-FEW); RBC,URINE OCC /HPF (0-2); SQUAMOUS EPITHELIAL CELL,UR MOD /LPF
--- NOTE | 2018-07-26 23:36 | RAD ---
PA and lateral chest. HISTORY: Chest tightness PA and lateral views were taken of the chest. Lungs are clear. Heart is normal in size without heart failure. There is no pleural effusion. IMPRESSION: 1. No acute chest disease. Electronically signed by: Go Sotomayor MD (07/26/2018 11:33 PM) [facility]
[2018-07-26 23:38] LABS: AMPHETAMINE/METHAMPHETAMINE NEG (NEG); BARBITURATES NEG (NEG); BENZODIAZEPINES NEG (NEG); CANNABINOIDS NEG (NEG); COCAINE NEG (NEG); METHADONE NEG (NEG); OPIATES NEG (NEG); PHENCYCLIDINE NEG (NEG)
[2018-07-27] MEDS ORDERED: diphenhydrAMINE 50 MG/ML VIAL IVP ONE
[2018-07-27] MEDS ORDERED: METOCLOPRAMIDE HCL 10 MG/2 ML VIAL. IV ONE (00:30)
[2018-07-27] MEDS ORDERED: KETOROLAC 15 MG/ML VIAL. IV ONE (00:30)
[2018-07-27] MEDS ORDERED: POTASSIUM CHLORIDE 20 MEQ TABLET.ER. PO ONE (00:30)
--- NOTE | 2018-07-27 00:40 | PHYS DOC ---
Past Medical History Past Medical History: Arthritis, Migraines Additional Past Medical Histor: RA Past Surgical History: Cholecystectomy Alcohol Use: Rarely Drug Use: None Social History Narrative: denies Adult General Chief Complaint Chief Complaint: HYPERTENSION HPI HPI 38-year-old female presents to ER via POV for complaints of headache and uncontrollable body tremors/shaking. She reports hx of Migraines. She denies this is the worst GREY she has experienced. Patient reports that she had an hCG quantitative of approximately 800 a couple weeks ago but states she has had some cramping and vaginal spotting. Review of Systems Review of Systems Constitutional: Denies fever or chills [] Eyes: Denies change in visual acuity, redness, or eye pain [] HENT: Denies nasal congestion or sore throat [] Respiratory: Denies cough or shortness of breath [] Cardiovascular: No additional information not addressed in HPI [] GI: Denies abdominal pain, nausea, vomiting, bloody stools or diarrhea [] : Denies dysuria or hematuria [] Musculoskeletal: Denies back pain or joint pain [] Integument: Denies rash or skin lesions [] Neurologic: Denies headache, focal weakness or sensory changes [] Endocrine: Denies polyuria or polydipsia [] All other systems were reviewed and found to be within normal limits, except as documented in this note. Current Medications Current Medications Current Medications Medications (Trade) Dose Ordered Sig/Faraz Start Time Stop Time Status Last Admin Dose Admin Diphenhydramine HCl (Benadryl) 25 mg 1X ONCE 07/27/18 00:00 07/27/18 00:01 DC 07/27/18 00:00 25 MG Ketorolac Tromethamine (Toradol 15mg Vial) 15 mg 1X ONCE 07/27/18 00:30 07/27/18 00:31 DC 07/27/18 00:33 15 MG Metoclopramide HCl (Reglan Vial) 10 mg 1X ONCE 07/27/18 00:30 07/27/18 00:31 DC 07/27/18 00:35 10 MG Potassium Chloride (Klor-Con) 40 meq 1X ONCE 07/27/18 00:30 07/27/18 00:31 DC 07/27/18 00:24 40 MEQ Sodium Chloride 1,000 ml @ 1,000 mls/hr 1X ONCE 07/26/18 23:00 07/26/18 23:59 DC 07/26/18 23:20 1,000 MLS/HR Allergies Allergies Allergies Coded Allergies Type Severity Reaction Last Updated Verified benztropine Allergy Intermediate SEVERE PAIN 08/15/15 Yes dexamethasone Allergy Intermediate SEVERE PAIN 08/15/15 Yes Physical Exam Physical Exam Constitutional: Well developed, well nourished, no acute distress, non-toxic appearance. [] HENT: Normocephalic, atraumatic, bilateral external ears normal, oropharynx moist, no oral exudates, nose normal. [] Eyes: PERRLA, EOMI, conjunctiva normal, no discharge. [] Neck: Normal range of motion, no tenderness, supple, no stridor. [] Cardiovascular:Heart rate regular rhythm, no murmur [] Lungs & Thorax: Bilateral breath sounds clear to auscultation [] Abdomen: Bowel sounds normal, soft, no tenderness, no masses, no pulsatile masses. [] Skin: Warm, dry, no erythema, no rash. [] Back: No tenderness, no CVA tenderness. [] Extremities: No tenderness, no cyanosis, no clubbing, ROM intact, no edema. [] Neurologic: Alert and oriented X 3, normal motor function, normal sensory function, no focal deficits noted. [] Psychologic: Affect normal, judgement normal, mood normal. [] Current Patient Data Vital Signs Vital Signs Date Time Temp Pulse Resp B/P (MAP) Pulse Ox O2 Delivery O2 Flow Rate FiO2 07/27/18 00:02 83 20 100 07/26/18 22:17 98.2 185/98 (127) Room Air 98.2 Lab Values Laboratory Tests Test 07/26/18 22:53 07/26/18 23:12 White Blood Count 7.6 x10^3/uL (4.0-11.0) Red Blood Count 4.62 x10^6/uL (3.50-5.40) Hemoglobin 13.9 g/dL (12.0-15.5) Hematocrit 39.8 % (36.0-47.0) Mean Corpuscular Volume 86 fL (79-100) Mean Corpuscular Hemoglobin 30 pg (25-35) Mean Corpuscular Hemoglobin Concent 35 g/dL (31-37) Red Cell Distribution Width 13.5 % (11.5-14.5) Platelet Count 270 x10^3/uL (140-400) Neutrophils (%) (Auto) 58 % (31-73) Lymphocytes (%) (Auto) 31 % (24-48) Monocytes (%) (Auto) 9 % (0-9) Eosinophils (%) (Auto) 1 % (0-3) Basophils (%) (Auto) 1 % (0-3) Neutrophils # (Auto) 4.4 x10^3uL (1.8-7.7) Lymphocytes # (Auto) 2.4 x10^3/uL (1.0-4.8) Monocytes # (Auto) 0.7 x10^3/uL (0.0-1.1) Eosinophils # (Auto) 0.1 x10^3/uL (0.0-0.7) Basophils # (Auto) 0.0 x10^3/uL (0.0-0.2) Maternal Serum HCG Beta Subunit < 1 mIU/mL (0-5) Sodium Level 141 mmol/L (136-145) Potassium Level 3.2 mmol/L (3.5-5.1) L Chloride Level 103 mmol/L (98-107) Carbon Dioxide Level 24 mmol/L (21-32) Anion Gap 14 (6-14) Blood Urea Nitrogen 8 mg/dL (7-20) Creatinine 0.8 mg/dL (0.6-1.0) Estimated GFR (Cockcroft-Gault) 79.9 BUN/Creatinine Ratio 10 (6-20) Glucose Level 103 mg/dL (70-99) H Calcium Level 9.7 mg/dL (8.5-10.1) Magnesium Level 1.8 mg/dL (1.8-2.4) Total Bilirubin 0.4 mg/dL (0.2-1.0) Aspartate Amino Transferase (AST) 25 U/L (15-37) Alanine Aminotransferase (ALT) 32 U/L (14-59) Alkaline Phosphatase 51 U/L (46-116) Troponin I Quantitative < 0.017 ng/mL (0.000-0.055) Total Protein 7.9 g/dL (6.4-8.2) Albumin 4.1 g/dL (3.4-5.0) Albumin/Globulin Ratio 1.1 (1.0-1.7) Ethyl Alcohol Level < 3 mg/dL (0-10) Urine Collection Type Unknown Urine Color Yellow Urine Clarity Clear Urine pH 6.5 Urine Specific [place] 1.010 Urine Protein Negative mg/dL (NEG-TRACE) Urine Glucose (UA) Negative mg/dL (NEG) Urine Ketones (Stick) 15 mg/dL (NEG) Urine Blood Trace (NEG) Urine Nitrite Negative (NEG) Urine Bilirubin Negative (NEG) Urine Urobilinogen Dipstick 0.2 mg/dL (0.2 mg/dL) Urine Leukocyte Esterase Negative (NEG) Urine RBC Occ /HPF (0-2) Urine WBC 1-4 /HPF (0-4) Urine Squamous Epithelial Cells Mod /LPF Urine Bacteria Few /HPF (0-FEW) Urine Opiates Screen Neg (NEG) Urine Methadone Screen Neg (NEG) Urine Barbiturates Neg (NEG) Urine Phencyclidine Screen Neg (NEG) Urine Amphetamine/Methamphetamine Neg (NEG) Urine Benzodiazepines Screen Neg (NEG) Urine Cocaine Screen Neg (NEG) Urine Cannabinoids Screen Neg (NEG) Urine Ethyl Alcohol Neg (NEG) Laboratory Tests 07/26/18 22:53 Laboratory Tests 07/26/18 22:53 EKG EKG EKG obtained 07/26/18 at [address] Potts Sinus rhythm Rate 74 No STEMI Radiology/Procedures Radiology/Procedures PROCEDURE: CHEST PA & LATERAL PA and lateral chest. HISTORY: Chest tightness PA and lateral views were taken of the chest. Lungs are clear. Heart is normal in size without heart failure. There is no pleural effusion. IMPRESSION: 1. No acute chest disease. Electronically signed by: Go Sotomayor MD (07/26/2018 11:33 PM) [facility] DICTATED and SIGNED BY: GO SOTOMAYOR MD DATE: 07/26/18 9609 Course & Med Decision Making Course & Med Decision Making Pertinent Labs and Imaging studies reviewed. (See chart for details) Prior to getting patient's hCG quantitative level which pt knew was pending she signed waver for chest xray is what she reports to this provider. Discussed less than one hCG quantitative level and patient states she feels like she probably miscarried 1-2 weeks ago. Discussed other test results with patient. With less than one quantitative hCG discussed obtaining CT head for further evaluation of patient's report of headache and vision changes. At this time patient is refusing CT head as she has had multiple images in the past. Patient states she is just preferring treatment with medication and if symptoms improve she is wanting to be discharged. 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 She was in no visible distress with clear speech. Will treat patient with dose of Toradol and Reglan. Dragon Disclaimer Dragon Disclaimer This electronic medical record was generated, in whole or in part, using a voice recognition dictation system. Departure Departure Impression: Primary Impression: Headache Disposition: HOME, SELF-CARE Condition: STABLE Referrals: MICKY YOST MD (PCP) Patient Instructions: Headache, FAQs Additional Instructions: Continue home medications as prescribed. Drink plenty of fluids. Eat well-balanced meals. Follow-up with your primary care physician on Sunday for reevaluation and further care. With ongoing headaches you should have follow-up with your neurologist for reevaluation and further care. Your level was <1 follow-up with your [employer] doctor on Sunday for reevaluation and further care. JAYE ESPARZA APRN Jul 27, 2018 00:40
[2018-07-27 01:42] VITALS: BP 170/83
--- NOTE | 2018-07-27 11:50 | EKG ---
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
== END 2018-07-27 01:45 | disposition home or self-care (01) ==
LOC: ER 22:09
DX: O26.891 Other specified pregnancy related conditions, first trimester (principal); G43.909 Migraine, unspecified, not intractable, without status migrainosus; R07.89 Other chest pain; O16.1 Unspecified maternal hypertension, first trimester; Z3A.00 Weeks of gestation of pregnancy not specified; Z88.8 Allergy status to other drugs, medicaments and biological substances
CPT/HCPCS: 36415; 71046; 80053; 80307; 81001; 83735; 84484; 84702; 85025; 93005; 96374; 96375; 99285; G0480; J1200; J1885; J2765; J7030

== ENCOUNTER → 2019-09-01 | Outpatient (CLI) | payer OTHER ==
[~2019-09-01] MED LIST changes: -CLON1TAB11 PO; +CLONAZEPAM1 MG PO; -NIFE30TA17 PO; +NIFE30TA95 PO; -TIZA4TAB PO; +TIZA4TAB2 PO
--- NOTE | 2019-09-01 13:24 | KCIC ---
MRI study of the right elbow without contrast Clinical indications: Right elbow pain for 5 years from repetitive motion. TECHNIQUE: Noncontrast MRI sequences of the right shoulder were performed in all 3 planes. FINDINGS: No joint effusion is seen. No osteochondral abnormality of the radial capitellar joint or the trochlear ulnar joint is seen. No fracture or marrow infiltrative process is seen. No bone contusion is evident. The radial collateral ligament and ulnar collateral ligament and lateral ulnar collateral ligament and annular ligament are intact. There is tendinosis of the common extensor tendon mechanism. There is edema of the extensor carpi radialis longus muscle and tendon. This is consistent with a grade 1 muscle strain. Common flexor tendon mechanism is intact. The biceps and brachialis and triceps tendons are intact. No olecranon bursitis is seen. No soft tissue mass or abscess is seen. IMPRESSION: Tendinosis of the common extensor tendon mechanism without high-grade tear or complete tear. Associated grade 1 muscle strain of the extensor carpi radialis longus muscle and tendon. No fracture. No ligament tear. Electronically signed by: Aden Mills MD (09/01/2019 1:22 PM) [id number]
== END ==
LOC: KCIC MRI 09:09
PROVIDERS: ATTEND Orthopaedic Surgery
DX: M25.521 Pain in right elbow (principal)
CPT/HCPCS: 73221